=== PATIENT | male | born 1960 | race Caucasian/White ===

== ENCOUNTER 2020-01-10 06:33 | Inpatient (IN) | payer MEDICAID ==
[~2020-01-10] VITALS: Ht 182.9 cm; Wt 76.7 kg
[2020-01-10 06:35] VITALS: BP_SYST 110
[2020-01-10] MEDS ORDERED: NACL 0.9% 1,000 ML IV ONE (06:45)
[2020-01-10 07:23] LABS: BASOPHILS % (AUTO) 0.7 % (0.0-2.0); EOSINOPHILS # (AUTO) 0.1 K/uL (0.0-0.4); EOSINOPHILS % (AUTO) 0.9 % (0.0-4.0); HEMATOCRIT 25.8 % (36-54); LYMPHOCYTES # (AUTO) 0.8 K/uL (1.0-5.5); LYMPHOCYTES % (AUTO) 11.8 % (20.5-51.5); MEAN CORPUSCULAR HEMOGLOBIN 37 pg (27-31); MEAN CORPUSCULAR HGB CONC 35 % (32-36); MEAN CORPUSCULAR VOLUME 105 fL (79.0-98.0); MONOCYTES % (AUTO) 15.9 % (1.7-9.3); NEUTROPHILS # (AUTO) 4.6 K/uL (1.8-7.7); NEUTROPHILS % (AUTO) 70.7 % (40.0-70.0); PLATELET COUNT (AUTO) 99 K/uL (130-430); RED BLOOD CELL COUNT(AUTO) 2.44 MIL/uL (4.2-6.2); RED CELL DISTRIBUTION WIDTH 17.7 % (9.0-15.0); WHITE BLOOD COUNT (AUTO) 6.6 K/uL (4.8-10.8)
[2020-01-10 07:39] LABS: INR 1.4 (0.80-1.20)
[2020-01-10 07:46] LABS: ALANINE AMINOTRANSFERASE 44 U/L (12-78); ALBUMIN 2.7 g/dL (3.4-4.8); ANION GAP 10 (5-15); ASPARTATE AMINOTRANSFERASE 69 U/L (10-37); CALCIUM 8.4 mg/dL (8.4-11.0); CHLORIDE 88 mmol/L (98-107); CREATININE 1.16 mg/dL (0.55-1.30); GLUCOSE 104 mg/dL (70-99); POTASSIUM 4.7 mmol/L (3.5-5.1); UREA NITROGEN, BLOOD 25 mg/dL (8-21)
[2020-01-10 07:47] LABS: GFR AFRICAN AMERICAN 83 mL/min (>90)
[2020-01-10 07:48] LABS: ALCOHOL, BLOOD < 3 mg/dL (<10); SODIUM SERUM 120 mmol/L (136-145); TOTAL BILIRUBIN 5.6 mg/dL (0.0-1.0)
[2020-01-10 07:49] LABS: PROTHROMBIN TIME 13.8 SECS (9.5-12.5)
[2020-01-10] MEDS ORDERED: FOLIC ACID 1 MG, THIAMINE HCL 100 MG, MAGNESIUM SULFATE 1 GM, MVI 10 ML in NACL 0.9% 1,... IV ONE (08:30)
[2020-01-10] MEDS ORDERED: FOLIC ACID 1 MG, MVI 10 ML in NACL 0.9% 1,000 ML IV ONE (08:45)
[2020-01-10] MEDS ORDERED: THIAMINE HCL 100 MG, MAGNESIUM SULFATE 1 GM in NS 100 ML IV ONE (08:45)
[2020-01-10 09:28] VITALS: BP_SYST 95
[2020-01-10] MEDS ORDERED: LORazepam 2 MG/ML VIAL IVP PRN (10:45)
[2020-01-10] MEDS ORDERED: FAMOTIDINE PF 20 MG/2 ML VIAL IVP ONE (10:45)
[2020-01-10 12:00] VITALS: BP_SYST 97
[2020-01-10 16:32] VITALS: BP_SYST 99
[2020-01-10] MEDS: SPIRONOLACTONE 50 MG TABLET (ALDACTONE) PO SCH (18:55)
[2020-01-10] MEDS: FUROSEMIDE 20 MG TABLET PO SCH (18:56)
[2020-01-10 19:45] VITALS: BP_SYST 94
[2020-01-10] MEDS: FAMOTIDINE PF 20 MG/2 ML VIAL IVP SCH (20:34)
[2020-01-10] MEDS: LACTULOSE 20 GM/30 ML UDC PO SCH (20:34)
[2020-01-11] VITALS: BP_SYST 114
[2020-01-11 03:07] LABS: BILIRUBIN,URINE NEGATIVE (NEGATIVE); BLOOD, URINE 3+ (NEGATIVE); CLARITY/URINE SL CLOUDY (CLEAR); COLOR,URINE YELLOW (YELLOW); GLUCOSE,URINE NEGATIVE (NEGATIVE); KETONES,URINE TRACE (NEGATIVE); LEUKOCYTE ESTERASE ,URINE TRACE (NEGATIVE); NITRITE, URINE NEGATIVE (NEGATIVE); PH,URINE 5.5 (5.0-8.0); PROTEIN URINE NEGATIVE (NEGATIVE); UROBILINOGEN,URINE 0.2 (0.2-1.0)
[2020-01-11 03:20] LABS: BARBITURATE, URINE NEGATIVE (NEG <=200); BENZODIAZEPINE, URINE NEGATIVE (NEG <=150); CANNABINOID, URINE NEGATIVE (NEG <=50); COCAINE, URINE NEGATIVE (NEG <=150); METHAMPHETAMINES SCREEN,URINE NEGATIVE (NEG <=500); OPIATE, URINE POSITIVE (NEG <=100); PHENCYCLIDINE SCREEN,URINE NEGATIVE (NEG <=25); UR TRICYCLIC ANTIDEPRESSANTS NEGATIVE (NEG <=300); URINE AMPHETAMINE NEGATIVE (NEG <=500); URINE METHADONE NEGATIVE (NEG <=200); URINE OXYCODONE SCREEN NEGATIVE (NEG <=100); URINE PROPOXYPHENE SCREEN NEGATIVE (NEG <=300)
[2020-01-11 04:51] LABS: BACTERIA,URINE MODERATE /HPF (None Seen); RBC,URINE 20-50 /HPF (0-3)
[2020-01-11 06:24] LABS: INR 1.5 (0.80-1.20); PROTHROMBIN TIME 14.5 SECS (9.5-12.5)
[2020-01-11 06:28] LABS: BASOPHILS % (AUTO) 0.2 % (0.0-2.0); EOSINOPHILS # (AUTO) 0.1 K/uL (0.0-0.4); EOSINOPHILS % (AUTO) 2.4 % (0.0-4.0); HEMOGLOBIN 7.5 g/dL (14.0-18.0); LYMPHOCYTES # (AUTO) 0.9 K/uL (1.0-5.5); LYMPHOCYTES % (AUTO) 19.9 % (20.5-51.5); MEAN CORPUSCULAR HEMOGLOBIN 37 pg (27-31); MEAN CORPUSCULAR HGB CONC 34 % (32-36); MEAN CORPUSCULAR VOLUME 106 fL (79.0-98.0); MONOCYTES # (AUTO) 0.6 K/uL (0.0-1.0); NEUTROPHILS # (AUTO) 2.9 K/uL (1.8-7.7); NEUTROPHILS % (AUTO) 63.5 % (40.0-70.0); PLATELET COUNT (AUTO) 82 K/uL (130-430); RED BLOOD CELL COUNT(AUTO) 2.07 MIL/uL (4.2-6.2); RED CELL DISTRIBUTION WIDTH 17.6 % (9.0-15.0); WHITE BLOOD COUNT (AUTO) 4.6 K/uL (4.8-10.8)
[2020-01-11 06:29] LABS: ALBUMIN 2.2 g/dL (3.4-4.8); CALCIUM 7.7 mg/dL (8.4-11.0); CREATININE 1.25 mg/dL (0.55-1.30); POTASSIUM 4.2 mmol/L (3.5-5.1); TOTAL BILIRUBIN 3.9 mg/dL (0.0-1.0)
[2020-01-11 06:35] LABS: HEMATOCRIT 21.9 % (36-54)
[2020-01-11 08:00] VITALS: BP_SYST 82
[2020-01-11] MEDS: LACTULOSE 20 GM/30 ML UDC PO SCH ×2 (08:49→20:12)
[2020-01-11] MEDS: SPIRONOLACTONE 50 MG TABLET (ALDACTONE) PO SCH (08:50)
[2020-01-11] MEDS: FAMOTIDINE PF 20 MG/2 ML VIAL IVP SCH ×2 (08:50→20:12)
[2020-01-11] MEDS: NEPHROVITE, (FOLIC ACID/VITAMIN B COMP W-C 1 TAB) PO SCH (08:50)
[2020-01-11] MEDS: THIAMINE HCL 100 MG TABLET PO SCH (08:50)
[2020-01-11] MEDS: FUROSEMIDE 20 MG TABLET PO SCH (09:00)
[2020-01-11 15:16] LABS: BASOPHILS # (AUTO) 0.1 K/uL (0.0-0.2); BASOPHILS % (AUTO) 1.2 % (0.0-2.0); EOSINOPHILS # (AUTO) 0.1 K/uL (0.0-0.4); EOSINOPHILS % (AUTO) 1.4 % (0.0-4.0); HEMATOCRIT 24.1 % (36-54); HEMOGLOBIN 8.2 g/dL (14.0-18.0); LYMPHOCYTES # (AUTO) 0.7 K/uL (1.0-5.5); LYMPHOCYTES % (AUTO) 13.1 % (20.5-51.5); MEAN CORPUSCULAR HEMOGLOBIN 36 pg (27-31); MEAN CORPUSCULAR HGB CONC 34 % (32-36); MEAN CORPUSCULAR VOLUME 106 fL (79.0-98.0); MONOCYTES % (AUTO) 20.3 % (1.7-9.3); NEUTROPHILS # (AUTO) 3.3 K/uL (1.8-7.7); PLATELET COUNT (AUTO) 83 K/uL (130-430); RED BLOOD CELL COUNT(AUTO) 2.28 MIL/uL (4.2-6.2); RED CELL DISTRIBUTION WIDTH 17.3 % (9.0-15.0); WHITE BLOOD COUNT (AUTO) 5.1 K/uL (4.8-10.8)
[2020-01-11 20:00] VITALS: BP_SYST 95
[2020-01-12 00:30] VITALS: BP_SYST 126
[2020-01-12 06:03] LABS: BASOPHILS % (AUTO) 0.5 % (0.0-2.0); EOSINOPHILS # (AUTO) 0.1 K/uL (0.0-0.4); HEMOGLOBIN 8.1 g/dL (14.0-18.0); LYMPHOCYTES # (AUTO) 0.9 K/uL (1.0-5.5); LYMPHOCYTES % (AUTO) 17.9 % (20.5-51.5); MEAN CORPUSCULAR HEMOGLOBIN 37 pg (27-31); MEAN CORPUSCULAR HGB CONC 35 % (32-36); MEAN CORPUSCULAR VOLUME 105 fL (79.0-98.0); MONOCYTES # (AUTO) 1.1 K/uL (0.0-1.0); MONOCYTES % (AUTO) 21.8 % (1.7-9.3); NEUTROPHILS % (AUTO) 57.8 % (40.0-70.0); PLATELET COUNT (AUTO) 86 K/uL (130-430); RED BLOOD CELL COUNT(AUTO) 2.19 MIL/uL (4.2-6.2); RED CELL DISTRIBUTION WIDTH 17.5 % (9.0-15.0); WHITE BLOOD COUNT (AUTO) 5.1 K/uL (4.8-10.8)
[2020-01-12 06:24] LABS: INR 1.4 (0.80-1.20); PROTHROMBIN TIME 13.8 SECS (9.5-12.5)
[2020-01-12 06:30] LABS: ALBUMIN 2.3 g/dL (3.4-4.8); CALCIUM 8.2 mg/dL (8.4-11.0); CREATININE 1.11 mg/dL (0.55-1.30); POTASSIUM 4.4 mmol/L (3.5-5.1); TOTAL BILIRUBIN 4.8 mg/dL (0.0-1.0)
[2020-01-12 07:00] LABS: TOTAL IRON BIND. CAPACITY 180 ug/dL (250-450)
[2020-01-12] MEDS: LACTULOSE 20 GM/30 ML UDC PO SCH (08:31)
[2020-01-12] MEDS: SPIRONOLACTONE 50 MG TABLET (ALDACTONE) PO SCH (08:31)
[2020-01-12] MEDS: THIAMINE HCL 100 MG TABLET PO SCH (08:32)
[2020-01-12] MEDS: FUROSEMIDE 20 MG TABLET PO SCH (08:32)
[2020-01-12] MEDS: NEPHROVITE, (FOLIC ACID/VITAMIN B COMP W-C 1 TAB) PO SCH (08:32)
[2020-01-12] MEDS: FAMOTIDINE PF 20 MG/2 ML VIAL IVP SCH (08:32)
[2020-01-12] MEDS ORDERED: SODIUM CHLORIDE 3% *HI-ALERT* 300 ML IV PRN (13:00)
[2020-01-12] MEDS ORDERED: SODIUM CHLORIDE 3% *HI-ALERT* 500 ML IV SCH (14:15)
== END 2020-01-12 18:40 | disposition left against medical advice (07) | DRG 279 ==
LOC: SED 06:33 → STU 08:25
PROVIDERS: ADMIT Internal Medicine; ATTEND Internal Medicine
DX: K72.90 Hepatic failure, unspecified without coma (principal); I85.10 Secondary esophageal varices without bleeding; E44.0 Moderate protein-calorie malnutrition; E87.1 Hypo-osmolality and hyponatremia; G62.1 Alcoholic polyneuropathy; D64.9 Anemia, unspecified; T14.8XXA Other injury of unspecified body region, initial encounter; E86.0 Dehydration; F41.1 Generalized anxiety disorder; K70.31 Alcoholic cirrhosis of liver with ascites; F10.20 Alcohol dependence, uncomplicated; F17.200 Nicotine dependence, unspecified, uncomplicated; X58.XXXA Exposure to other specified factors, initial encounter; Y93.89 Activity, other specified; Y92.89 Other specified places as the place of occurrence of the external cause; Y99.8 Other external cause status; Z68.22 Body mass index [BMI] 22.0-22.9, adult; Z91.19 Patient's noncompliance with other medical treatment and regimen
CPT/HCPCS: 36415; 71045; 80053; 80307; 81000-TC; 82140-TC; 82607; 83540-TC; 83550-TC; 85025; 85610-TC; 85730-TC; 86886; 86900; 86901; 87081; 87086; 87186-TC; 96360; 99285; G0378; G0482; J3411; J3475; J3490; J7030

== ENCOUNTER 2020-01-18 16:09 | Inpatient (IN) | payer MEDICAID, SELFPAY ==
[~2020-01-18] VITALS: Ht 170.2 cm; Wt 71.2 kg
[2020-01-18] MEDS: PIPERACILLIN/TAZO 3.375/DEX-IS 50 ML IV SCH (15:35)
--- NOTE | 2020-01-18 16:15 | NUR ---
Patient to ER bed 03 to gown for evaluation. Side rails up.
--- NOTE | 2020-01-18 16:17 | NUR ---
Patient biba in the ED for hypotension today. Per PD, patient was found on the floor covered in feces, was put on hold for gravely disabled. 5150 Hold placed on 1538 today by Officer Sophia Glez #[id number]. Denied any chest pain or shortness of breath. Denied any fevers, chills, nausea or vomiting. Patient is alert and oriented x2, respirations even and unlabored and speaking in full sentences. Abdominal distention noted, Jaundiced, VSS, pain level 0/10. Informed of the approximate wait time. Instructed to notify ED staff for any changes in condition or worsening of symptoms while waiting to be seen by an ED provider. Patient verbalized understanding.
--- NOTE | 2020-01-18 16:30 | NUR ---
ER Dr. Chandler at bedside examining patient.
--- NOTE | 2020-01-18 16:50 | NUR ---
X-ray done at bedside as ordered by Dr. Chandler. Patient tolerated the procedure well.
[2020-01-18] MEDS ORDERED: NACL 0.9% 1,000 ML IV ONE ×3 (17:00→18:15)
[2020-01-18 17:10] VITALS: BP_SYST 135
--- NOTE | 2020-01-18 17:15 | NUR ---
ECG done at bedside as ordered by Dr. Chandler. Patient tolerated the procedure well. ER Physician given copy of EKG for review.
[2020-01-18 17:19] LABS: BASOPHILS % (AUTO) 0.6 % (0.0-2.0); EOSINOPHILS # (AUTO) 0.1 K/uL (0.0-0.4); EOSINOPHILS % (AUTO) 2.3 % (0.0-4.0); HEMATOCRIT 23.4 % (36-54); HEMOGLOBIN 7.9 g/dL (14.0-18.0); LYMPHOCYTES # (AUTO) 0.9 K/uL (1.0-5.5); LYMPHOCYTES % (AUTO) 17.4 % (20.5-51.5); MEAN CORPUSCULAR HEMOGLOBIN 36 pg (27-31); MEAN CORPUSCULAR HGB CONC 34 % (32-36); MEAN CORPUSCULAR VOLUME 107 fL (79.0-98.0); MONOCYTES # (AUTO) 0.8 K/uL (0.0-1.0); MONOCYTES % (AUTO) 15.6 % (1.7-9.3); NEUTROPHILS # (AUTO) 3.3 K/uL (1.8-7.7); NEUTROPHILS % (AUTO) 64.1 % (40.0-70.0); PLATELET COUNT (AUTO) 98 K/uL (130-430); RED BLOOD CELL COUNT(AUTO) 2.18 MIL/uL (4.2-6.2); RED CELL DISTRIBUTION WIDTH 18.1 % (9.0-15.0); WHITE BLOOD COUNT (AUTO) 5.2 K/uL (4.8-10.8)
[2020-01-18 17:22] LABS: CALCIUM 8.7 mg/dL (8.4-11.0); CREATININE 1.78 mg/dL (0.55-1.30); POTASSIUM 4.9 mmol/L (3.5-5.1)
[2020-01-18 17:29] LABS: ALBUMIN 2.6 g/dL (3.4-4.8); TOTAL BILIRUBIN 9.7 mg/dL (0.0-1.0)
[2020-01-18 17:50] LABS: CKMB RELATIVE INDEX 2.2 (0.0-2.9); CREATINE KINASE MB 6.9 ng/mL (0-3.6)
--- NOTE | 2020-01-18 17:52 | NUR ---
Patient is resting comfortably in bed, respirations even and unlabored, speaking in full sentences.
--- NOTE | 2020-01-18 19:20 | NUR ---
Report given and care transferred to MABLE Galvez.
--- NOTE | 2020-01-18 19:30 | NUR ---
PT IS AWAKE, ALERT, TALKATIVE. PT IS LAYING IN BED WITHOUT SIGNS OF ACUTE DISTRESS.
--- NOTE | 2020-01-18 19:37 | NUR ---
RECEIVED ADMIT ORDERS FROM DR. SANCHEZ.
--- NOTE | 2020-01-18 19:42 | NUR ---
CALLED TELE TO REQUEST BED.
[2020-01-18] MEDS ORDERED: ONDANSETRON HCL 4 MG/2 ML VIAL IVP PRN (20:00)
[2020-01-18] MEDS ORDERED: METOCLOPRAMIDE HCL 10 MG/2 ML VIAL IVP PRN (20:00)
[2020-01-18] MEDS ORDERED: LEVOFLOXACIN 500 MG/D5W 100 ML IV ONE (20:00)
--- NOTE | 2020-01-18 20:09 | NUR ---
Medication reconciliation unable to obtain with information provided by PATIENT. Any prior medication reconciliation on file was reviewed and corrected.
[2020-01-18] MEDS ORDERED: ALBUMIN HUMAN 25% 50 ML IV ONE (21:00)
--- NOTE | 2020-01-18 21:00 | NUR ---
CALLED DR. SANCHEZ BECAUSE PT SBP < 90 AFTER 3L OF NS BOLUS. DR. SANCHEZ UPGRADED PT TO ICU. VERBAL ORDER FOR LEVOPHED, ALBUMIN, AND ZOSYN 3.375.
--- NOTE | 2020-01-18 21:00 | NUR ---
Lynn noble in [facility] - 01/18/[address] SANCHEZ UPGRADED PT TO ICU.
[2020-01-18] MEDS ORDERED: NOREPINEPHRINE 4 MG/4 ML VIAL IV ONE (21:14)
--- NOTE | 2020-01-18 21:15 | NUR ---
Started on Levophed drip to titrate by 2mcg/min q10 mins to achieve goal SBP
--- NOTE | 2020-01-18 21:25 | NUR ---
rate increased to 4mcg/min
[2020-01-18] MEDS: NOREPINEPHRINE BITARTRATE 4 MG in NS 246 ML IV PRN (21:28)
--- NOTE | 2020-01-18 21:35 | NUR ---
levophed rate increased to 6 mcg/min
--- NOTE | 2020-01-18 21:45 | NUR ---
levophed rate increased to 8mcg/min
--- NOTE | 2020-01-18 21:55 | NUR ---
levophed rate increased to 10mcg/min. PT BP 82/50.
--- NOTE | 2020-01-18 22:26 | NUR ---
levophed rate increased to 12mcg/min. PT BP 81/45
--- NOTE | 2020-01-18 22:39 | NUR ---
levophed rate increased to 14mcg/min. PT BP 85/59
--- NOTE | 2020-01-18 22:50 | NUR ---
levophed rate AT 14mcg/min. PT BP 90/48.
[2020-01-18] MEDS: LACTULOSE 20 GM/30 ML UDC PO SCH ×2 (23:00→23:19)
--- NOTE | 2020-01-18 23:01 | NUR ---
levophed rate increased to 16mcg/min. PT BP 86/55
--- NOTE | 2020-01-18 23:14 | NUR ---
levophed rate AT 16 mcg/min. PT BP 90/54
--- NOTE | 2020-01-18 23:24 | NUR ---
levophed rate increased to 18mcg/min. PT BP 87/54
--- NOTE | 2020-01-18 23:34 | NUR ---
levophed rate increased to 20mcg/min. PT BP 87/49
--- NOTE | 2020-01-18 23:44 | NUR ---
levophed rate at 20mcg/min. PT BP 95/56
--- NOTE | 2020-01-18 23:45 | NUR ---
PT ALERT, AWAKE, TALKATIVE. DENIES PAIN. NO SIGNS OF ACUTE DISTRESS.
--- NOTE | 2020-01-18 23:54 | NUR ---
levophed rate at 20mcg/min. PT BP 92/60
[2020-01-19] VITALS (23 sets, daily range): BP systolic 87–147
--- NOTE | 2020-01-19 00:04 | NUR ---
levophed rate increased to 22mcg/min
--- NOTE | 2020-01-19 00:14 | NUR ---
levophed rate AT 22mcg/min. PT BP 97/57
--- NOTE | 2020-01-19 00:24 | NUR ---
levophed rate AT 22mcg/min. PT BP 99/59
--- NOTE | 2020-01-19 00:34 | NUR ---
levophed rate AT 22mcg/min. PT BP 102/58
--- NOTE | 2020-01-19 00:44 | NUR ---
levophed rate AT 22mcg/min. PT BP 104/54
--- NOTE | 2020-01-19 00:54 | NUR ---
Patient will be admitted to care of DR. SANCHEZ. Admitted to ICU unit. Will go to room 7. Belongings list completed. Complete and up to date summary report printed. SBAR report to be given at bedside with opportunity for questions.
--- NOTE | 2020-01-19 00:55 | NUR ---
Transfer to ICU via ACLS protocol. Licensed nurse present. IV present no signs or symptoms of infiltration.
--- NOTE | 2020-01-19 01:00 | NUR ---
Patient's code status is DNR WITH MODIFIED RESUSCITATIVE MEAUSURES OF INTUBATION paperwork completed and placed in chart.
--- NOTE | 2020-01-19 01:30 | NUR ---
Admission Note REceived Pt from ED, via julito. Pt AAO, SR on the monitor. On levophed @22mcg/min for BP. On RA, no s/s of distres noted. Pt c/o of no pain. VSS. Afebrile. IV sites noted, C/D/I. Skin intact, ABD distended, and Pt appearing jaundice. Able to make needs known. Will continue to monitor.
[2020-01-19] MEDS ORDERED: NOREPINEPHRINE 4 MG/4 ML VIAL IV ONE ×3 (01:36→07:58)
[2020-01-19] MEDS: D5NS 1,000 ML IV SCH ×3 (01:37→15:35)
[2020-01-19] MEDS: NOREPINEPHRINE BITARTRATE 4 MG in NS 246 ML IV PRN ×3 (01:38→21:24)
[2020-01-19] MEDS: PIPERACILLIN/TAZO 3.375/DEX-IS 50 ML IV SCH ×4 (03:00→20:07)
[2020-01-19] MEDS ORDERED: PIPERACILLIN/TAZOBACTAM 3.375 GM/VIAL (ZOSYN) IV ONE (03:02)
[2020-01-19] MEDS ORDERED: LEVOFLOXACIN 500 MG/D5W 100 ML IV ONE (03:02)
[2020-01-19] MEDS: LACTULOSE 20 GM/30 ML UDC PO SCH ×6 (03:02→23:00)
--- NOTE | 2020-01-19 04:06 | NUR ---
Pt in bed asleep. No s/s of distress noted. Pt tolerating Levophed @20mcg/min. Will continue to monitor.
[2020-01-19 06:19] LABS: BASOPHILS % (AUTO) 0.7 % (0.0-2.0); EOSINOPHILS # (AUTO) 0.1 K/uL (0.0-0.4); EOSINOPHILS % (AUTO) 1.9 % (0.0-4.0); HEMOGLOBIN 7.6 g/dL (14.0-18.0); LYMPHOCYTES % (AUTO) 15.5 % (20.5-51.5); MEAN CORPUSCULAR HEMOGLOBIN 37 pg (27-31); MEAN CORPUSCULAR HGB CONC 35 % (32-36); MEAN CORPUSCULAR VOLUME 108 fL (79.0-98.0); MONOCYTES # (AUTO) 1.1 K/uL (0.0-1.0); MONOCYTES % (AUTO) 16.8 % (1.7-9.3); NEUTROPHILS # (AUTO) 4.2 K/uL (1.8-7.7); NEUTROPHILS % (AUTO) 65.1 % (40.0-70.0); PLATELET COUNT (AUTO) 113 K/uL (130-430); RED BLOOD CELL COUNT(AUTO) 2.05 MIL/uL (4.2-6.2); RED CELL DISTRIBUTION WIDTH 17.7 % (9.0-15.0); WHITE BLOOD COUNT (AUTO) 6.4 K/uL (4.8-10.8)
[2020-01-19 06:41] LABS: ALBUMIN 2.6 g/dL (3.4-4.8); CALCIUM 8.5 mg/dL (8.4-11.0); CREATININE 1.91 mg/dL (0.55-1.30); POTASSIUM 4.5 mmol/L (3.5-5.1)
--- NOTE | 2020-01-19 06:54 | NUR ---
Nutrition Update Wilian Scale 14 noted. Pt admitted for Hepatic Encephalopathy Diet: NPO BMI: 24.7 kg/m2 RD to follow per nutrition care standards.
--- NOTE | 2020-01-19 07:00 | NUR ---
Closing Note Pt in bed, AAO, SR on the monitor. LEvophed infusing @20mcg/min. Pt on RA, no distress noted. Able to make needs known. Pt ABd remains distended and firm. Will endorse to oncoming RN.
--- NOTE | 2020-01-19 07:23 | NUR ---
Endorsement Report given to oncoming RN at bedside via SBAR approach.
--- NOTE | 2020-01-19 07:24 | NUR ---
Received pt to assume care. Pt alert and oriented. ST on monitor. Levophed at 20 mcgs. Pt slightly jaundiced. IV to left AC 20g infusing levophed and main IV fluid. 20g saline lock to right AC intact. Pt able to use urinal but doesn't have the urge. Room air 02. No complaints offered. Will continue to monitor.
[2020-01-19 10:22] LABS: INR 1.5 (0.80-1.20); PROTHROMBIN TIME 15.4 SECS (9.5-12.5)
--- NOTE | 2020-01-19 11:25 | NUR ---
Pt incontinent of large amount of brown liquid stool. Ju care done and complete linen change done. Pt given clear liquids. Levophed remains at 18 mcgs . Will continue to monitor.
--- NOTE | 2020-01-19 12:35 | NUR ---
Call out to Dr. Mar for a diet order
--- NOTE | 2020-01-19 13:30 | NUR ---
Drinking clear liquids. No c.o. ST on monitor. Levophed at 18 mcgs. Unable to titrate down farther without mean less than 60.
--- NOTE | 2020-01-19 13:46 | NUR ---
SS NOTES: PSYCHIATRIC TECHNICIAN was referred by SS to see patient for DCP. Pt is currently PUI and no phone at bedside. PSYCHIATRIC TECHNICIAN phoned NOK, Deann Matias @ [phone] instead. Pt is a 59 y/o single male who came in via ED for altered level of consciousness. Pt was in [place] recently (01/11) and had another admission prior to that at another hospital. Pt lives alone in his apartment and is independent on all his ADL's and does not require any DME. Pt was homeless for four years 2 years ago. Pt's possible source of income is his SSI, and he is also receiving [employer]. Prior visit states he is receiving 10 hrs/day of IHSS and has a "caregiver". Pt has a long history of mental health and is diagnosed with Bipolar disorder. Pt was also admitted at a in psychiatric facility 10 years ago, unknown hospital. Pt is currently receiving mental health services at [facility]. Per ARIE, pt drinks alcohol daily and possible heavily. Pt has a history of cocaine use 20 years ago and no history of detox admissions. Unknown SNF or [facility] admissions in the past. SS or CM will follow up on DCP when pt available.
--- NOTE | 2020-01-19 16:55 | NUR ---
Pt incontinent of a very large amount of liquid brown stool. Doris care done and complete linen change done.
--- NOTE | 2020-01-19 19:35 | NUR ---
OPENING NOTE: Received SBAR report from off coming RN for continuity of care. Questions were addressed.
[2020-01-19] MEDS: FUROSEMIDE 40 MG TABLET PO SCH (20:08)
[2020-01-20] VITALS (24 sets, daily range): BP systolic 75–114
[2020-01-20] MEDS: NOREPINEPHRINE BITARTRATE 4 MG in NS 246 ML IV PRN ×3 (02:19→15:02)
[2020-01-20] MEDS: PIPERACILLIN/TAZO 3.375/DEX-IS 50 ML IV SCH ×4 (02:28→21:56)
[2020-01-20] MEDS: D5NS 1,000 ML IV SCH ×3 (02:38→21:57)
[2020-01-20] MEDS: LACTULOSE 20 GM/30 ML UDC PO SCH ×5 (03:00→18:51)
--- NOTE | 2020-01-20 07:29 | NUR ---
CLOSING NOTE: Endorsed SBAR report to oncoming RN for continuity of care. Questions were addressed.
--- NOTE | 2020-01-20 08:00 | NUR ---
Opening Notes Patient received awake and alert in bed with no signs of distress noted at this time. Patient on threat monitoring analyst with NSR. Patient on room air breathing evenly and unlabored. Patient with peripheral IV receiving fluids and levophed at 20 mcg/min. Patient incontinent at this time. Safety and isolation precautions enforced.
[2020-01-20] MEDS ORDERED: VASOPRESSIN 200 UNITS in D5W 90 ML IV PRN (08:30)
--- NOTE | 2020-01-20 09:00 | NUR ---
Jackson catheter education/ refusal Patient educated regarding MD order for jackson catheter insertion. Patient verbalized understanding and refused jackson insertion.
[2020-01-20 09:03] LABS: CALCIUM 7.7 mg/dL (8.4-11.0); CREATININE 2.16 mg/dL (0.55-1.30)
[2020-01-20] MEDS: FUROSEMIDE 40 MG TABLET PO SCH ×2 (09:11→21:56)
[2020-01-20 09:13] LABS: BASOPHILS % (AUTO) 0.9 % (0.0-2.0); EOSINOPHILS # (AUTO) 0.2 K/uL (0.0-0.4); EOSINOPHILS % (AUTO) 4.3 % (0.0-4.0); LYMPHOCYTES # (AUTO) 0.9 K/uL (1.0-5.5); LYMPHOCYTES % (AUTO) 20.8 % (20.5-51.5); MEAN CORPUSCULAR HEMOGLOBIN 37 pg (27-31); MEAN CORPUSCULAR HGB CONC 34 % (32-36); MEAN CORPUSCULAR VOLUME 109 fL (79.0-98.0); MONOCYTES # (AUTO) 0.6 K/uL (0.0-1.0); MONOCYTES % (AUTO) 13.3 % (1.7-9.3); NEUTROPHILS # (AUTO) 2.7 K/uL (1.8-7.7); NEUTROPHILS % (AUTO) 60.7 % (40.0-70.0); PLATELET COUNT (AUTO) 75 K/uL (130-430); RED CELL DISTRIBUTION WIDTH 17.8 % (9.0-15.0); WHITE BLOOD COUNT (AUTO) 4.4 K/uL (4.8-10.8)
[2020-01-20] MEDS ORDERED: NOREPINEPHRINE 4 MG/4 ML VIAL IV ONE ×2 (09:21)
[2020-01-20 09:26] LABS: POTASSIUM 2.8 mmol/L (3.5-5.1)
[2020-01-20 09:30] LABS: RED BLOOD CELL COUNT(AUTO) 1.84 MIL/uL (4.2-6.2)
[2020-01-20] MEDS ORDERED: POTASSIUM CHLORIDE 20 MEQ/PKT PACKET PO ONE (09:30)
[2020-01-20 09:31] LABS: HEMOGLOBIN 6.8 g/dL (14.0-18.0)
--- NOTE | 2020-01-20 12:00 | NUR ---
RN Rounds Patient resting in bed at this time, no signs of distress noted. Reinforced teachings regarding disease process and plan of care. Safety and isolation precautions enforced.
--- NOTE | 2020-01-20 14:37 | NUR ---
Dietitian Recommendations *Continue clear liquid diet per MD. ONS Ensure Clear comes standard w/ diet and provides 720 kcal and 24gm protein daily. *If/when medically appropriate, advance diet. (Full liquid then soft diet) Please see Nutritional Assessment for details. MANJEET, CATHERINE
--- NOTE | 2020-01-20 16:00 | NUR ---
RN Rounds Patient in no signs of distress at this time. Safety and isolation precautions enforced.
--- NOTE | 2020-01-20 16:30 | NUR ---
PICC line PICC line RN at bedside for PICC line placement. Patient tolerating well.
[2020-01-20 17:26] LABS: SOURCE/TYPE ,BODY FLUID PARACENTESIS
[2020-01-20 17:27] LABS: APPEARANCE,SPUN,BODY FLUID CLEAR (CLEAR); BF APPEARANCE UNSPUN HAZY (CLEAR); BODY FLUID COLOR YELLOW (LT YELLOW); BODY FLUID TOTAL VOLUME 1250 mL; RBC, BODY FLUID 331 /uL; WBC, BODY FLUID 12 /uL
[2020-01-20 17:28] LABS: BODY FLUID OTHER CELLS 0 %; EOSINOPHIL, BODY FLUID 0 %; LYMPHOCYTES, BODY FLUID 12 %; MONOCYTES,BODY FLUID 82 %; NEUTROPHIL, BODY FLUID 6 %
--- NOTE | 2020-01-20 17:30 | NUR ---
Blood Transfusion Transfusing 1 unit PRBC at this time. Patient tolerating well. No signs of distress noted.
[2020-01-20 17:34] LABS: BODY FLUID SOURCE/ TYPE PERITONEAL
[2020-01-20] MEDS: MORPHINE 2 MG/ML INJ. SYRINGE IVP PRN (17:50)
--- NOTE | 2020-01-20 19:30 | NUR ---
Opening note Received patient after report from [facility] nurse Renita. Isolation for PUI r/o covid 19. patient in Room air; no signs of respiratory compromise. Requiring Levophed drip and vasopressin to sustain BP WNL. Patient has the tendency to carry on a conversation disregarding others and often repeating ideas previously stated. Continues to refuse jackson catheter and found to be incontinent of urine and stool. one unit of PRBC continues to infuse as per MD orderswill continue to monitor patient for safety and according to unit protocol.
--- NOTE | 2020-01-20 19:36 | NUR ---
Closing Notes Patient endorsed to awake overnight counselor RN using SBAR format. No signs of distress noted.
--- NOTE | 2020-01-20 21:05 | NUR ---
Blood transfusion completed; no signs of abnormal reactions noted.
[2020-01-21] VITALS (24 sets, daily range): BP systolic 76–122
[2020-01-21 00:01] LABS: BODY FLUID TOTAL PROTEIN 0.6 g/dL
[2020-01-21 00:02] LABS: BODY FLUID GLUCOSE 115 mg/dL
--- NOTE | 2020-01-21 00:20 | NUR ---
Assessment completed; incontinence care provided. Repositioned for comfort.
[2020-01-21] MEDS: LACTULOSE 20 GM/30 ML UDC PO SCH ×7 (01:49→22:25)
[2020-01-21] MEDS: NOREPINEPHRINE BITARTRATE 4 MG in NS 246 ML IV PRN ×3 (01:52→20:56)
--- NOTE | 2020-01-21 05:30 | NUR ---
Morning care provided. Linen changed; bedbath given. patient tolerated well.
[2020-01-21] MEDS: PIPERACILLIN/TAZO 3.375/DEX-IS 50 ML IV SCH ×4 (05:31→21:13)
[2020-01-21 05:50] LABS: BASOPHILS % (AUTO) 0.5 % (0.0-2.0); EOSINOPHILS # (AUTO) 0.1 K/uL (0.0-0.4); EOSINOPHILS % (AUTO) 3.4 % (0.0-4.0); HEMATOCRIT 26.7 % (36-54); HEMOGLOBIN 9.3 g/dL (14.0-18.0); LYMPHOCYTES # (AUTO) 1.4 K/uL (1.0-5.5); LYMPHOCYTES % (AUTO) 32.7 % (20.5-51.5); MEAN CORPUSCULAR HEMOGLOBIN 37 pg (27-31); MEAN CORPUSCULAR HGB CONC 35 % (32-36); MEAN CORPUSCULAR VOLUME 105 fL (79.0-98.0); MONOCYTES # (AUTO) 0.5 K/uL (0.0-1.0); MONOCYTES % (AUTO) 11.9 % (1.7-9.3); NEUTROPHILS # (AUTO) 2.2 K/uL (1.8-7.7); NEUTROPHILS % (AUTO) 51.5 % (40.0-70.0); PLATELET COUNT (AUTO) 61 K/uL (130-430); RED BLOOD CELL COUNT(AUTO) 2.55 MIL/uL (4.2-6.2); RED CELL DISTRIBUTION WIDTH 19.7 % (9.0-15.0); WHITE BLOOD COUNT (AUTO) 4.3 K/uL (4.8-10.8)
[2020-01-21 06:39] LABS: ALBUMIN 2.4 g/dL (3.4-4.8); CALCIUM 7.5 mg/dL (8.4-11.0); CREATININE 1.65 mg/dL (0.55-1.30); TOTAL BILIRUBIN 8.9 mg/dL (0.0-1.0)
[2020-01-21 06:42] LABS: POTASSIUM 2.5 mmol/L (3.5-5.1)
[2020-01-21] MEDS ORDERED: POTASSIUM CHLORIDE 20 MEQ/PKT PACKET PO ONE (07:15)
[2020-01-21] MEDS ORDERED: KCL 20 mEq in 100 mL (PREMIX) 100 ML IV ONE (07:30)
--- NOTE | 2020-01-21 07:30 | NUR ---
Opening Notes Pt received from night RN using SBAR.
[2020-01-21] MEDS: FUROSEMIDE 40 MG TABLET PO SCH ×2 (08:04→21:22)
[2020-01-21] MEDS: D5NS 1,000 ML IV SCH ×2 (08:04→18:11)
[2020-01-21] MEDS: MIDODRINE HCL 5 MG TABLET (PROAMATINE) PO SCH ×3 (09:15→21:22)
[2020-01-21] MEDS ORDERED: KCL 40 mEq in 100 mL (PREMIX) 100 ML IV ONE ×3 (09:30→22:30)
--- NOTE | 2020-01-21 09:30 | NUR ---
Incontinent Pt is incontinent of bowel and bladder. New Linen, gown and mona-care provided. Pt tolerated well. Will continue to monitor. Pt was offered a jackson cath per order and pt refused.
--- NOTE | 2020-01-21 11:08 | NUR ---
Called Dr. Redding with a consult, spoke with Case from doctors office
--- NOTE | 2020-01-21 13:15 | NUR ---
MD Dr. Acosta at bedside with pt.
--- NOTE | 2020-01-21 16:15 | NUR ---
PICC Dressing PICC line dressing changed using sterile technique. Pt tolerated well.
[2020-01-21 17:00] LABS: POTASSIUM 2.4 mmol/L (3.5-5.1)
--- NOTE | 2020-01-21 17:49 | NUR ---
MD Dr. Mar informed of pts low K+ post potassium given, Dr. Pérez consult ordered.
--- NOTE | 2020-01-21 17:58 | NUR ---
Consult Spoke to Dr. Pérez and informed of pt, new orders received.
--- NOTE | 2020-01-21 19:15 | NUR ---
Closing Notes Pt endorsed to night RN using SBAR.
[2020-01-21] MEDS ORDERED: MAGNESIUM SULFATE 1 GM/2 ML VIAL IVP ONE (19:30)
--- NOTE | 2020-01-21 19:40 | NUR ---
Opening note Received patient after report from daysnmft nurse Shellie. Patient off vasopressors but BP noted to start deteriorating as SBP 75-81 Patient awake and able to speak. NO signs of respiratory distress in room air. Picc line ALLEN in place and patent with potassium ridder infusing. will continue to monitor as per unit protocol.
--- NOTE | 2020-01-21 20:52 | NUR ---
Levophed drip started at 2 mcg/min for consistent SBP 70-75 and MAP 50.
[2020-01-21] MEDS: MORPHINE 2 MG/ML INJ. SYRINGE IVP PRN (22:59)
[2020-01-22] VITALS (24 sets, daily range): BP systolic 81–99
[2020-01-22] MEDS: LACTULOSE 20 GM/30 ML UDC PO SCH ×6 (03:00→23:44)
[2020-01-22] MEDS: PIPERACILLIN/TAZO 3.375/DEX-IS 50 ML IV SCH ×4 (03:57→21:27)
[2020-01-22] MEDS: D5NS 1,000 ML IV SCH ×3 (03:58→23:49)
[2020-01-22 07:03] LABS: BASOPHILS % (AUTO) 0.7 % (0.0-2.0); EOSINOPHILS # (AUTO) 0.1 K/uL (0.0-0.4); EOSINOPHILS % (AUTO) 3.3 % (0.0-4.0); HEMATOCRIT 26.7 % (36-54); HEMOGLOBIN 9.3 g/dL (14.0-18.0); LYMPHOCYTES # (AUTO) 0.7 K/uL (1.0-5.5); LYMPHOCYTES % (AUTO) 17.5 % (20.5-51.5); MEAN CORPUSCULAR HEMOGLOBIN 37 pg (27-31); MEAN CORPUSCULAR HGB CONC 35 % (32-36); MEAN CORPUSCULAR VOLUME 106 fL (79.0-98.0); MONOCYTES # (AUTO) 0.5 K/uL (0.0-1.0); MONOCYTES % (AUTO) 11.5 % (1.7-9.3); NEUTROPHILS # (AUTO) 2.8 K/uL (1.8-7.7); PLATELET COUNT (AUTO) 62 K/uL (130-430); RED BLOOD CELL COUNT(AUTO) 2.53 MIL/uL (4.2-6.2); RED CELL DISTRIBUTION WIDTH 19.4 % (9.0-15.0); WHITE BLOOD COUNT (AUTO) 4.2 K/uL (4.8-10.8)
[2020-01-22 07:12] LABS: CREATININE 1.58 mg/dL (0.55-1.30); PHOSPHORUS 3.8 mg/dL (2.7-4.5); TOTAL BILIRUBIN 5.9 mg/dL (0.0-1.0)
--- NOTE | 2020-01-22 08:00 | NUR ---
Initial notes- In bed awake, alert forgetful. Denies any pain or discomfort at this time. On room air tolerating well. on Levophed at 10mcg. IVF infusing well. Incontinent of bowel and bladder. afebrile. Sinus on the monitor. will monitor.
[2020-01-22 08:06] LABS: POTASSIUM 2.3 mmol/L (3.5-5.1)
[2020-01-22] MEDS: ARIPiprazole 5 MG TAB PO SCH (08:46)
[2020-01-22] MEDS: FUROSEMIDE 40 MG TABLET PO SCH ×2 (08:46→21:28)
[2020-01-22] MEDS: MULTIVITAMINS TAB 1 TABLET PO SCH (08:46)
[2020-01-22] MEDS: SPIRONOLACTONE 50 MG TABLET (ALDACTONE) PO SCH ×3 (08:47→21:28)
[2020-01-22] MEDS: THIAMINE HCL 100 MG TABLET PO SCH (08:47)
[2020-01-22] MEDS: MIDODRINE HCL 5 MG TABLET (PROAMATINE) PO SCH ×3 (08:47→21:28)
--- NOTE | 2020-01-22 09:12 | NUR ---
Meds- Pt able to eat by himself and take his meds with no problem
[2020-01-22] MEDS ORDERED: KCL 40 mEq in 100 mL (PREMIX) 100 ML IV ONE ×2 (09:30→13:30)
--- NOTE | 2020-01-22 10:30 | NUR ---
Paracentesis done with 8 liters out.
[2020-01-22] MEDS: NOREPINEPHRINE BITARTRATE 4 MG in NS 246 ML IV PRN ×2 (12:27→18:42)
--- NOTE | 2020-01-22 12:30 | NUR ---
notes- Eating lunch, no complains at this time, is just he is cold. provided warm blanket.
--- NOTE | 2020-01-22 16:00 | NUR ---
Notes- Resting, denies any pain or discomfort. No acute distress noted. afebrile, SR on the monitor.
--- NOTE | 2020-01-22 16:30 | NUR ---
Notes -Has incontinence of urine and stool. change patient and repositioned. No distress noted.
--- NOTE | 2020-01-22 17:00 | NUR ---
Notes- Transfer to room 128 at this time. will continue to monitor patient.
--- NOTE | 2020-01-22 17:40 | NUR ---
Notes- Eating dinner, able to feed self.
--- NOTE | 2020-01-22 18:43 | NUR ---
Notes- Resting, wants to sleep. Refused to take the lactulose at this time. pt stated that he feels full. No acute distress noted. will endorse
--- NOTE | 2020-01-22 19:30 | NUR ---
Opening Notes Pt received from night RN using SBAR. Pt resting with no complaints of pain or distress.
--- NOTE | 2020-01-22 20:50 | NUR ---
Transferred Pt moved from room 127 to ICU 128. Pt is connected to in room monitor.
[2020-01-22] MEDS: MORPHINE 2 MG/ML INJ. SYRINGE IVP PRN (21:29)
[2020-01-23] VITALS (22 sets, daily range): BP systolic 74–115
--- NOTE | 2020-01-23 00:07 | NUR ---
Snacks Pt requested a chocolate pudding, pt tolerated well will continue to monitor.
[2020-01-23] MEDS: NOREPINEPHRINE BITARTRATE 4 MG in NS 246 ML IV PRN ×3 (00:21→22:03)
--- NOTE | 2020-01-23 01:27 | NUR ---
Resting Pt resting in lowest position in bed, will continue to monitor.
[2020-01-23] MEDS: PIPERACILLIN/TAZO 3.375/DEX-IS 50 ML IV SCH ×4 (04:04→21:35)
[2020-01-23] MEDS: LACTULOSE 20 GM/30 ML UDC PO SCH ×6 (04:04→22:12)
--- NOTE | 2020-01-23 05:20 | NUR ---
Initial notes Received full report from security shift supervisor RN using SBAR. Patient is awake, alert and oriented. Not showing any signs of distress and denies any pain at this time.
--- NOTE | 2020-01-23 05:34 | NUR ---
Report Report given to Donya AKINS using SBAR. All pt needs met through duration of shift. Pt's bed in lowest in position with call light within reach. No complaints of pain or distress at this time.
[2020-01-23 06:43] LABS: CREATININE 1.25 mg/dL (0.55-1.30)
--- NOTE | 2020-01-23 06:53 | NUR ---
Patient had a bowel movement, he was cleaned and changed, his lactulose was given this am, IV meds replenished. Pt is not in any kind of distress at this time and he denies any pain. I will give report to am shift nurse.
--- NOTE | 2020-01-23 07:00 | NUR ---
Opening Note Received report from AM nurse using SBAR approach.
--- NOTE | 2020-01-23 08:04 | NUR ---
Critical Lab Potassium 2.3. Documented.
--- NOTE | 2020-01-23 08:05 | NUR ---
MD Rounds Dr. Gardiner at bedside. New orders received.
[2020-01-23 08:06] LABS: POTASSIUM 2.3 mmol/L (3.5-5.1)
[2020-01-23 08:07] LABS: CALCIUM 6.9 mg/dL (8.4-11.0)
[2020-01-23] MEDS ORDERED: POTASSIUM CHLORIDE 20 MEQ TAB.PRT.SR PO ONE (08:15)
--- NOTE | 2020-01-23 08:22 | NUR ---
Critical Lab Potassium 2.3. Documented. Addendum: 01/23/20 at 0823 by Catherine Johnson RN wrong time
[2020-01-23] MEDS: ALBUMIN HUMAN 25% 50 ML IV SCH ×3 (08:46→17:19)
[2020-01-23] MEDS: MULTIVITAMINS TAB 1 TABLET PO SCH (08:50)
[2020-01-23] MEDS: MIDODRINE HCL 5 MG TABLET (PROAMATINE) PO SCH ×3 (08:50→21:37)
[2020-01-23] MEDS: FUROSEMIDE 40 MG TABLET PO SCH ×2 (08:50→21:38)
[2020-01-23] MEDS: ARIPiprazole 5 MG TAB PO SCH (08:51)
[2020-01-23] MEDS: THIAMINE HCL 100 MG TABLET PO SCH (08:51)
[2020-01-23] MEDS: SPIRONOLACTONE 50 MG TABLET (ALDACTONE) PO SCH ×2 (08:51→21:39)
[2020-01-23] MEDS ORDERED: KCL 40 mEq in 100 mL (PREMIX) 100 ML IV ONE (09:00)
[2020-01-23] MEDS: D5NS 1,000 ML IV SCH ×3 (09:00→22:12)
--- NOTE | 2020-01-23 10:15 | NUR ---
Titrated Levophed Titrated Levophed from 10 mcg to 9 mcg. Patient tolerated well. BP 99/60 MAP (75). Will continue to monitor.
--- NOTE | 2020-01-23 11:00 | NUR ---
Closing Note Endorsed report to AM nurse using SBAR approach.
[2020-01-23] MEDS ORDERED: CALCIUM GLUCONATE 2 GM in NS 100 ML IV ONE (17:00)
[2020-01-23] MEDS ORDERED: CALCIUM GLUCONATE 1 GM/10 ML VIAL ONE (17:39)
[2020-01-23] MEDS: CALCIUM CARBONATE 500 MG/ TAB.CHEW PO SCH ×2 (17:44→21:37)
--- NOTE | 2020-01-23 19:43 | NUR ---
Closing note: SBAR report endorsed to Grace AKINS. All Labs, vital signs, and IV drips endorsed.
--- NOTE | 2020-01-23 19:44 | NUR ---
Report recieved from Grace AKINS. All care assumed.
[2020-01-23] MEDS: KCL 20 mEq in 100 mL (PREMIX) 100 ML IV SCH ×2 (21:36→22:09)
[2020-01-23] MEDS: CHOLECALCIFEROL (VITAMIN D3) 2,000 UNIT TABLET PO SCH (21:37)
--- NOTE | 2020-01-23 22:00 | NUR ---
Pt had bowel movement. Semi-solid formed stool. Pt cleaned and given bed bath
[2020-01-24] VITALS (19 sets, daily range): BP systolic 79–110
--- NOTE | 2020-01-24 | NUR ---
blood saturated band-aid over paracentesis puncture site removed. Area cleansed with CHG, prepped with skin prep, sterile/dry dressing and opsite applied to wound.
[2020-01-24] MEDS: MORPHINE 2 MG/ML INJ. SYRINGE IVP PRN ×2 (03:51→22:11)
[2020-01-24] MEDS: LACTULOSE 20 GM/30 ML UDC PO SCH ×6 (03:57→22:11)
[2020-01-24] MEDS: PIPERACILLIN/TAZO 3.375/DEX-IS 50 ML IV SCH ×4 (03:58→21:25)
--- NOTE | 2020-01-24 04:02 | NUR ---
Patient resting quietly. No acute distress noted. Vital signs within normal range.
[2020-01-24 07:00] LABS: BASOPHILS # (AUTO) 0.1 K/uL (0.0-0.2); BASOPHILS % (AUTO) 1.7 % (0.0-2.0); EOSINOPHILS # (AUTO) 0.1 K/uL (0.0-0.4); EOSINOPHILS % (AUTO) 2.4 % (0.0-4.0); HEMATOCRIT 25.3 % (36-54); HEMOGLOBIN 8.8 g/dL (14.0-18.0); LYMPHOCYTES # (AUTO) 0.6 K/uL (1.0-5.5); LYMPHOCYTES % (AUTO) 15.5 % (20.5-51.5); MEAN CORPUSCULAR HEMOGLOBIN 37 pg (27-31); MEAN CORPUSCULAR HGB CONC 35 % (32-36); MEAN CORPUSCULAR VOLUME 104 fL (79.0-98.0); MONOCYTES # (AUTO) 0.6 K/uL (0.0-1.0); MONOCYTES % (AUTO) 14.4 % (1.7-9.3); NEUTROPHILS # (AUTO) 2.7 K/uL (1.8-7.7); RED BLOOD CELL COUNT(AUTO) 2.42 MIL/uL (4.2-6.2); RED CELL DISTRIBUTION WIDTH 19.6 % (9.0-15.0); WHITE BLOOD COUNT (AUTO) 4.1 K/uL (4.8-10.8)
[2020-01-24 07:26] LABS: ALBUMIN 2.3 g/dL (3.4-4.8); CALCIUM 7.1 mg/dL (8.4-11.0); CREATININE 1.06 mg/dL (0.55-1.30); POTASSIUM 3.1 mmol/L (3.5-5.1)
--- NOTE | 2020-01-24 07:32 | NUR ---
Opening Note Patient report received via SBAR from endorsing RN
[2020-01-24 07:44] LABS: TOTAL BILIRUBIN 4.8 mg/dL (0.0-1.0)
--- NOTE | 2020-01-24 07:50 | NUR ---
Nursing Note Dr. Wynn in to see patient, new orders entered
[2020-01-24] MEDS: ARIPiprazole 5 MG TAB PO SCH (08:32)
[2020-01-24] MEDS: CALCIUM CARBONATE 500 MG/ TAB.CHEW PO SCH ×4 (08:32→21:22)
[2020-01-24] MEDS: SPIRONOLACTONE 50 MG TABLET (ALDACTONE) PO SCH ×2 (08:32→21:24)
[2020-01-24] MEDS: NOREPINEPHRINE BITARTRATE 4 MG in NS 246 ML IV PRN (08:33)
[2020-01-24] MEDS: THIAMINE HCL 100 MG TABLET PO SCH (08:33)
[2020-01-24] MEDS: MIDODRINE HCL 5 MG TABLET (PROAMATINE) PO SCH ×3 (08:33→21:22)
[2020-01-24] MEDS: FUROSEMIDE 40 MG TABLET PO SCH ×2 (08:33→21:25)
[2020-01-24] MEDS: CHOLECALCIFEROL (VITAMIN D3) 2,000 UNIT TABLET PO SCH ×2 (08:33→21:24)
[2020-01-24] MEDS: MULTIVITAMINS TAB 1 TABLET PO SCH (08:33)
[2020-01-24] MEDS ORDERED: POTASSIUM CHLORIDE 20 MEQ TAB.PRT.SR PO ONE (09:45)
--- NOTE | 2020-01-24 09:50 | NUR ---
Nursing Note Dr. Gardiner in to see patient, new orders entered
[2020-01-24] MEDS: D5NS 1,000 ML IV SCH (11:12)
[2020-01-24 11:39] LABS: PLATELET COUNT (AUTO) 52 K/uL (130-430)
--- NOTE | 2020-01-24 13:10 | NUR ---
Nursing Note Dr. Pérez in to see patient, no new orders
--- NOTE | 2020-01-24 15:30 | NUR ---
Nursing Note Patinet had loose BM, patient was cleaned, gown changed, linens changed. Patient provided tea as requested.
--- NOTE | 2020-01-24 17:00 | NUR ---
Round Dr. Hobson in to see patient, new orders entered. Physician okay with transfer to Tele. Patient will be monitored on Telemetry status
--- NOTE | 2020-01-24 19:15 | NUR ---
Closing Note Patient report given via SBAR to nightshift RN
--- NOTE | 2020-01-24 19:40 | NUR ---
Report Received from [facility]. All care assumed.
--- NOTE | 2020-01-24 20:00 | NUR ---
Pt awake, alert, oriented. resting in bed. No acute distress at this time. Pt states that he has no pain at this time. No apparent respiratory distress at this time. Paracentesis wound on L abdomen currently has no active bleeding at this time. Pt states he feels the urge to have a bowel movement at this time. assisted to use urinal. PICC line in ALLEN infusing IV fluids, pt tolerating well, no s/s of infiltration or infection at this time. Peripheral angiocath IV in L forearm patent, no s/s of infiltration or infection.
[2020-01-25] VITALS (21 sets, daily range): BP systolic 65–92
--- NOTE | 2020-01-25 | NUR ---
Pt had large bowel movement. stool is loose. Pt provided with skin and moan care. Cleaned and placed on clean linens and clean gown. pt tolerated well.
--- NOTE | 2020-01-25 04:01 | NUR ---
Pt requested and was provided with pudding cups, glass of water, warm tea, extra blankets. Pt resting comfortably in bed.
[2020-01-25] MEDS: D5NS 1,000 ML IV SCH ×2 (06:55→11:33)
[2020-01-25] MEDS: LACTULOSE 20 GM/30 ML UDC PO SCH ×5 (06:57→22:11)
[2020-01-25] MEDS: PIPERACILLIN/TAZO 3.375/DEX-IS 50 ML IV SCH (06:57)
--- NOTE | 2020-01-25 07:15 | NUR ---
Report given to MABLE Abdi using standard SBAR format. All care endorsed. opportunity for questions and concerns, discussion of patient care presented.
[2020-01-25 07:28] LABS: EOSINOPHILS # (AUTO) 0.1 K/uL (0.0-0.4); EOSINOPHILS % (AUTO) 2.1 % (0.0-4.0); HEMOGLOBIN 7.6 g/dL (14.0-18.0); LYMPHOCYTES # (AUTO) 0.5 K/uL (1.0-5.5); LYMPHOCYTES % (AUTO) 16.6 % (20.5-51.5); MEAN CORPUSCULAR HEMOGLOBIN 37 pg (27-31); MEAN CORPUSCULAR HGB CONC 35 % (32-36); MEAN CORPUSCULAR VOLUME 105 fL (79.0-98.0); MONOCYTES # (AUTO) 0.4 K/uL (0.0-1.0); MONOCYTES % (AUTO) 10.6 % (1.7-9.3); NEUTROPHILS # (AUTO) 2.3 K/uL (1.8-7.7); NEUTROPHILS % (AUTO) 69.7 % (40.0-70.0); RED BLOOD CELL COUNT(AUTO) 2.08 MIL/uL (4.2-6.2); RED CELL DISTRIBUTION WIDTH 20.2 % (9.0-15.0); WHITE BLOOD COUNT (AUTO) 3.3 K/uL (4.8-10.8)
--- NOTE | 2020-01-25 07:30 | NUR ---
Closing Note Received plan of care via sbar from endorsing MABLE Pittman
[2020-01-25 07:33] LABS: CALCIUM 7.4 mg/dL (8.4-11.0); CREATININE 1.08 mg/dL (0.55-1.30); POTASSIUM 3.4 mmol/L (3.5-5.1)
[2020-01-25 07:34] LABS: HEMATOCRIT 21.9 % (36-54)
--- NOTE | 2020-01-25 08:07 | NUR ---
Patient on Tele status.
[2020-01-25] MEDS: ARIPiprazole 5 MG TAB PO SCH (08:26)
[2020-01-25] MEDS: FUROSEMIDE 40 MG TABLET PO SCH ×2 (08:26→21:00)
[2020-01-25] MEDS: THIAMINE HCL 100 MG TABLET PO SCH (08:26)
[2020-01-25] MEDS: MIDODRINE HCL 5 MG TABLET (PROAMATINE) PO SCH ×3 (08:27→20:59)
[2020-01-25] MEDS: MULTIVITAMINS TAB 1 TABLET PO SCH (08:27)
[2020-01-25] MEDS: CALCIUM CARBONATE 500 MG/ TAB.CHEW PO SCH ×3 (08:27→21:00)
[2020-01-25] MEDS: CHOLECALCIFEROL (VITAMIN D3) 2,000 UNIT TABLET PO SCH ×2 (08:27→21:00)
[2020-01-25] MEDS: SPIRONOLACTONE 50 MG TABLET (ALDACTONE) PO SCH ×2 (08:28→21:00)
[2020-01-25 09:06] LABS: TOTAL BILIRUBIN 3.9 mg/dL (0.0-1.0)
[2020-01-25 09:28] LABS: PLATELET COUNT (AUTO) 39 K/uL (130-430)
--- NOTE | 2020-01-25 11:27 | NUR ---
Paged Dr. Mar to inform him that patient started at Levophed 2mcg/min.
--- NOTE | 2020-01-25 14:30 | NUR ---
Dr. Pérez at bedside. Received orders to cancel fluids and give 40 MEQ K PO once.
[2020-01-25] MEDS ORDERED: POTASSIUM CHLORIDE 20 MEQ/PKT PACKET PO ONE (14:45)
--- NOTE | 2020-01-25 14:53 | NUR ---
Nutrition F/U Admitting Diagnosis: Hepatic Encephalopathy Medical History Comment: Pt found w/: Septic shock, Hepatitis Encephalopathy, ARF, Hyponatremia, Acute on Chronic Hepatitis, Respiratory Failure rule out COVID-19 per MD notes. PMH: Bipolar, Cirrhosis, Alcohol abuse. Subjective Information: Pt remains in ICU and RD visit was deferred d/t lack of PPE. Per EMR review, Fluid restriction has been ordered today 1200ml per day as nephrology noted a sudden decrease in serum sodium. Currently receiving lactulose and hepatic encephalopathy seems to be improving. His ascites is now minimal. PO intake remains poor (44% average of 9 meals x 3 days). Current Diet Order/Nutrition Support: Mechanical soft x 4 days Pertinent Medications Lasix, VIT D, tums, MVI, Thiamine Pertinent Labs 01/24 Na 122 L, K 3.4 L, BG 88WNL, BUN 14 WNL, CRE 1.08 WNL Skin Integrity Comment: Wilian scale: 14. No skin issues noted, no edema noted. Current % PO Poor (44% average of 9 meals x 3 days) Estimated Energy Expenditure (kcals/day) 5676-0985 kcal/day (30-35 kcal/kg IBW for sepsis) Estimated Protein Required (g/day) 67-101gm/day (1-1.5 gm/kg IBW for Renal Dz predialysis and sepsis) Estimated Fluid Required (l/day) per MD (ARF) Problem/Etiology/Signs/Symptoms Increased nutrient needs r/t metabolic demands AEB estimated calories and protein for sepsis. (*ongoing) Expected Outcomes/Goals Monitor appetite and PO intake w/ goal of pt meeting at least 75% of estimated nutritional needs, labs trending WNL, normal GI function, skin integrity/wt maintenance. Dietitian Recommendations *Continue Mechanical soft diet. *Continue Fluid Restriction 1200ml per day per nephrology. *Encourage pt to increase PO intake. Follow Up High Risk: F/U in 2-3days
--- NOTE | 2020-01-25 15:00 | NUR ---
Dietitian Recommendations *Continue Mechanical soft diet. *Continue Fluid Restriction 1200ml per day per nephrology. *Encourage pt to increase PO intake. Please see Nutrition F/U note for details. MANJEET, RD
--- NOTE | 2020-01-25 16:13 | NUR ---
P.T. NTOES P.T. EVAL COMPLETED; WILL BENEFIT W/ P.T. POST ACUTE STAY.
--- NOTE | 2020-01-25 19:05 | NUR ---
Opening Note Received report from AM nurse using SBAR approach.
--- NOTE | 2020-01-25 19:11 | NUR ---
Closing Note Provided plan of care via sbar to receiving MABLE Reynoso.
--- NOTE | 2020-01-25 21:25 | NUR ---
Levophed restarted Blood Pressure 53/25 MAP 40. Restarted levophed at 2mcg/min. Patient tolerated well. Will continue to monitor.
[2020-01-26] VITALS (24 sets, daily range): BP systolic 69–94
--- NOTE | 2020-01-26 00:15 | NUR ---
CHG Provided patient with CHG bath. New gown changed and new blankets given. Patient tolerated well. Will continue to monitor.
--- NOTE | 2020-01-26 01:25 | NUR ---
Post Transfusion Patient tolerated Blood Transfusion well. No signs or symptoms of distress. Patient did not experience any adverse reactions. Post transfusion Vital Signs: Temperature 97.5, Pulse 66, Respirations 21, Blood Pressure 68/30. Will continue to monitor. Addendum: 01/27/20 at 0138 by Catherine Johnson RN wrong time
--- NOTE | 2020-01-26 01:30 | NUR ---
BM Patient had one large BM. Cleaned patient with dexter wipes. Linens changed. Patient tolerated well. Will continue to monitor.
--- NOTE | 2020-01-26 02:30 | NUR ---
BM Patient had a large BM. Cleaned patient with dexter wipes and changed linens. Will continue to monitor.
[2020-01-26] MEDS: LACTULOSE 20 GM/30 ML UDC PO SCH ×7 (02:43→23:05)
--- NOTE | 2020-01-26 06:15 | NUR ---
BM Patient had a bowel movement. Cleaned patient with dexter wipes and changed linens and gowns. Will continue to monitor.
--- NOTE | 2020-01-26 07:08 | NUR ---
Closing Note Endorsed report to AM nurse using SBAR approach.
--- NOTE | 2020-01-26 07:36 | NUR ---
Opening Note Received plan of care via sbar from endorsing nurse Edgardo AKINS.
[2020-01-26] MEDS: THIAMINE HCL 100 MG TABLET PO SCH (08:26)
[2020-01-26] MEDS: CHOLECALCIFEROL (VITAMIN D3) 2,000 UNIT TABLET PO SCH ×2 (08:26→20:08)
[2020-01-26] MEDS: MIDODRINE HCL 5 MG TABLET (PROAMATINE) PO SCH ×3 (08:26→20:08)
[2020-01-26] MEDS: MULTIVITAMINS TAB 1 TABLET PO SCH (08:27)
[2020-01-26] MEDS: FUROSEMIDE 40 MG TABLET PO SCH ×2 (08:27→20:08)
[2020-01-26] MEDS: ARIPiprazole 5 MG TAB PO SCH (08:28)
[2020-01-26] MEDS: SPIRONOLACTONE 50 MG TABLET (ALDACTONE) PO SCH ×2 (08:29→20:09)
[2020-01-26] MEDS: CALCIUM CARBONATE 500 MG/ TAB.CHEW PO SCH ×4 (08:38→20:08)
--- NOTE | 2020-01-26 09:00 | NUR ---
Dr. Wynn at bedside. Received orders for Paracentesis, albumin, and lab for fluid aspirated from paracentesis. MD will place orders.
--- NOTE | 2020-01-26 09:45 | NUR ---
Dr. Mar at bedside. No new orders.
[2020-01-26] MEDS: ALBUMIN HUMAN 25% 50 ML IV SCH ×3 (10:24→17:03)
[2020-01-26 12:58] LABS: EOSINOPHILS % (AUTO) 0.8 % (0.0-4.0); MONOCYTES # (AUTO) 0.7 K/uL (0.0-1.0)
[2020-01-26 13:02] LABS: CALCIUM 8.1 mg/dL (8.4-11.0); CREATININE 1.66 mg/dL (0.55-1.30); POTASSIUM 4.1 mmol/L (3.5-5.1)
[2020-01-26 13:05] LABS: BASOPHILS % (AUTO) 0.7 % (0.0-2.0); LYMPHOCYTES # (AUTO) 0.7 K/uL (1.0-5.5); LYMPHOCYTES % (AUTO) 19.1 % (20.5-51.5); MEAN CORPUSCULAR HEMOGLOBIN 37 pg (27-31); MEAN CORPUSCULAR HGB CONC 35 % (32-36); MEAN CORPUSCULAR VOLUME 105 fL (79.0-98.0); MONOCYTES % (AUTO) 18.5 % (1.7-9.3); NEUTROPHILS # (AUTO) 2.2 K/uL (1.8-7.7); NEUTROPHILS % (AUTO) 60.9 % (40.0-70.0); WHITE BLOOD COUNT (AUTO) 3.6 K/uL (4.8-10.8)
[2020-01-26 13:06] LABS: RED BLOOD CELL COUNT(AUTO) 1.82 MIL/uL (4.2-6.2)
[2020-01-26 13:08] LABS: ALBUMIN 2.3 g/dL (3.4-4.8); HEMATOCRIT 19.2 % (36-54); HEMOGLOBIN 6.7 g/dL (14.0-18.0); PLATELET COUNT (AUTO) 48 K/uL (130-430); TOTAL BILIRUBIN 3.9 mg/dL (0.0-1.0)
[2020-01-26] MEDS: MORPHINE 2 MG/ML INJ. SYRINGE IVP PRN ×2 (14:10→23:06)
[2020-01-26 14:38] LABS: BODY FLUID SOURCE/ TYPE PARACENTESIS; SOURCE/TYPE ,BODY FLUID PARACENTESIS
[2020-01-26 14:39] LABS: BODY FLUID COLOR YELLOW (LT YELLOW); BODY FLUID TOTAL VOLUME 5200 mL
--- NOTE | 2020-01-26 14:45 | NUR ---
Spoke to Dr. Mar and reported critical H/H and platelet. Received orders for 1 PRBC.
[2020-01-26 15:14] LABS: BF APPEARANCE UNSPUN HAZY (CLEAR); NEUTROPHIL, BODY FLUID 12 %; RBC, BODY FLUID 257 /uL; WBC, BODY FLUID 1183 /uL
[2020-01-26 15:15] LABS: LYMPHOCYTES, BODY FLUID 24 %; MONOCYTES,BODY FLUID 64 %
--- NOTE | 2020-01-26 19:09 | NUR ---
Closing Note Provided plan of care via sbar to receiving MABLE Reynoso.
--- NOTE | 2020-01-26 19:25 | NUR ---
Opening Note Received report from AM nurse using SBAR approach.
--- NOTE | 2020-01-26 21:00 | NUR ---
Transfer Transferred patient from room 127-A to ICU bed 8. Patient tolerated well. No signs or symptoms of distress noted. Will continue to monitor.
--- NOTE | 2020-01-26 22:30 | NUR ---
BT INITIATION: Consent signed per patient, Zafar Burr, agreeing to administration of blood. Blood has been type and crossmatched. Blood sent from blood bank. Information on unit of blood checked against patient wristband at bedside by two nurses. All information matches. Patient or responsible constitution party informed of potential complications associated with blood transfusion. Informed of possible transfusion reaction symptoms. Aware of need to notify nurse at once of itching, shortness of breath, flushing, feeling of impending doom, or other symptoms not previously present. Vital signs taken within 5 minutes prior to initiation of transfusion. RN will remain with patient for first 15 minutes of transfusion at which time vital signs will be re-assessed. Pre Transfusion Vital Signs: Temperature 97.3 Pulse 68 Respirations 12 Blood Pressure 77/45
[2020-01-26 22:48] LABS: BODY FLUID TOTAL PROTEIN < 2.0 g/dL
[2020-01-26 22:49] LABS: BODY FLUID GLUCOSE 99 mg/dL
[2020-01-27] VITALS (24 sets, daily range): BP systolic 68–112
--- NOTE | 2020-01-27 01:25 | NUR ---
Post Transfusion Patient tolerated Blood Transfusion well. No signs or symptoms of distress. Patient did not experience any adverse reactions. Post transfusion Vital Signs: Temperature 97.5, Pulse 66, Respirations 21, Blood Pressure 68/30. Will continue to monitor.
--- NOTE | 2020-01-27 01:30 | NUR ---
Increased Levophed Increased Levophed from 1 mcg/min to 2mcg/min. Patient's blood pressure is 67/26 MAP of 39. Will continue to monitor.
[2020-01-27] MEDS: LACTULOSE 20 GM/30 ML UDC PO SCH ×6 (02:49→22:35)
[2020-01-27] MEDS: NOREPINEPHRINE BITARTRATE 4 MG in NS 246 ML IV PRN ×3 (05:32→22:36)
[2020-01-27] MEDS ORDERED: NOREPINEPHRINE 4 MG/4 ML VIAL IV ONE (05:43)
[2020-01-27 05:59] LABS: BASOPHILS % (AUTO) 0.6 % (0.0-2.0); EOSINOPHILS # (AUTO) 0.1 K/uL (0.0-0.4); EOSINOPHILS % (AUTO) 1.3 % (0.0-4.0); LYMPHOCYTES # (AUTO) 0.8 K/uL (1.0-5.5); LYMPHOCYTES % (AUTO) 21.2 % (20.5-51.5); MEAN CORPUSCULAR HEMOGLOBIN 36 pg (27-31); MEAN CORPUSCULAR HGB CONC 35 % (32-36); MEAN CORPUSCULAR VOLUME 103 fL (79.0-98.0); MONOCYTES # (AUTO) 0.7 K/uL (0.0-1.0); MONOCYTES % (AUTO) 19.3 % (1.7-9.3); NEUTROPHILS # (AUTO) 2.2 K/uL (1.8-7.7); NEUTROPHILS % (AUTO) 57.6 % (40.0-70.0); RED CELL DISTRIBUTION WIDTH 19.7 % (9.0-15.0); WHITE BLOOD COUNT (AUTO) 3.8 K/uL (4.8-10.8)
[2020-01-27 06:48] LABS: ALBUMIN 2.4 g/dL (3.4-4.8); CALCIUM 8.1 mg/dL (8.4-11.0); CREATININE 1.43 mg/dL (0.55-1.30); POTASSIUM 3.9 mmol/L (3.5-5.1); TOTAL BILIRUBIN 4.5 mg/dL (0.0-1.0)
--- NOTE | 2020-01-27 07:15 | NUR ---
Closing Note Endorsed report to AM nurse using SBAR approach.
--- NOTE | 2020-01-27 07:25 | NUR ---
Closing Note Endorsed report to AM nurse using SBAR approach.
[2020-01-27 07:28] LABS: RED BLOOD CELL COUNT(AUTO) 1.96 MIL/uL (4.2-6.2)
[2020-01-27 07:29] LABS: HEMATOCRIT 20.1 % (36-54); PLATELET COUNT (AUTO) 43 K/uL (130-430)
--- NOTE | 2020-01-27 07:30 | NUR ---
Opening Note Received bedside report from endorsing RN for continuation of care. Received patient awake and resting in bed, denies any pain or SOB at this time. Patient on room air. Patient has ALLEN PICC infusing Levophed Drip. No signs or symptoms of acute distress noted. Bed locked in lowest position, bed alarm on, and call light within reach. Fall and safety precautions in place.
[2020-01-27] MEDS: CALCIUM CARBONATE 500 MG/ TAB.CHEW PO SCH ×4 (08:37→21:03)
[2020-01-27] MEDS: CHOLECALCIFEROL (VITAMIN D3) 2,000 UNIT TABLET PO SCH ×2 (08:37→21:03)
[2020-01-27] MEDS: ARIPiprazole 5 MG TAB PO SCH (08:37)
[2020-01-27] MEDS: THIAMINE HCL 100 MG TABLET PO SCH (08:38)
[2020-01-27] MEDS: FUROSEMIDE 40 MG TABLET PO SCH (08:38)
[2020-01-27] MEDS: MULTIVITAMINS TAB 1 TABLET PO SCH (08:38)
[2020-01-27] MEDS: MIDODRINE HCL 5 MG TABLET (PROAMATINE) PO SCH ×3 (08:40→21:05)
--- NOTE | 2020-01-27 09:05 | NUR ---
Dr. Koch in to see patient. No new orders.
--- NOTE | 2020-01-27 09:14 | NUR ---
Dr. Pérez in to see patient. New orders received.
--- NOTE | 2020-01-27 09:15 | NUR ---
Opening Note Received bedside report from endorsing RN for continuation of care. Received patient awake and resting in bed, denies any pain or SOB at this time. Patient on room air. Patient has ALLEN PICC infusing Levophed Drip. No signs or symptoms of acute distress noted. Bed locked in lowest position, bed alarm on, and call light within reach. Fall and safety precautions in place. Addendum: 01/27/20 at 0919 by Sabrina Brasher RN Incorrect time. Meant 0730.
--- NOTE | 2020-01-27 12:00 | NUR ---
BM Patient had large loose BM. Pericare done and bed linens changed. Patient cleaned, turned, and repositioned. No signs or symptoms of acute distress noted.
[2020-01-27] MEDS ORDERED: HYDROCORTISONE SOD SUCC 100 MG/2 ML VIAL IVP ONE (13:15)
--- NOTE | 2020-01-27 13:15 | NUR ---
Dr. El at bedside to see patient. New orders received.
[2020-01-27 14:03] LABS: FREE T4 (FREE THYROXINE) 0.6 ng/dL (0.6-1.6); THYROID STIMULATING HORMONE 8.34 uIu/mL (0.34-4.82)
--- NOTE | 2020-01-27 18:55 | NUR ---
Dr. Zhang at bedside examining patient. New orders received.
--- NOTE | 2020-01-27 19:05 | NUR ---
Closing Note Endorsed bedside report to oncoming RN using SBAR approach for continuation of care.
--- NOTE | 2020-01-27 19:25 | NUR ---
PM SHIFT ASSESSMENT Pt is awake and alert. Pt is on RA, RR even and unlabored. SR on monitor. Skin warm and dry. ALLEN PICCLINE with IVF infusing. Safety precautions in place, call light within reach. Will continue to monitor.
[2020-01-27] MEDS: HYDROCORTISONE SOD SUCC 100 MG/2 ML VIAL IVP SCH (21:03)
[2020-01-27] MEDS: MORPHINE 2 MG/ML INJ. SYRINGE IVP PRN (21:04)
--- NOTE | 2020-01-27 22:30 | NUR ---
CHG CHG BATH GIVEN. PT TOLERATED CARE WELL.
[2020-01-28] VITALS (24 sets, daily range): BP systolic 89–117
[2020-01-28] MEDS: LACTULOSE 20 GM/30 ML UDC PO SCH ×6 (03:15→22:54)
[2020-01-28] MEDS: HYDROCORTISONE SOD SUCC 100 MG/2 ML VIAL IVP SCH ×3 (06:00→21:40)
--- NOTE | 2020-01-28 07:10 | NUR ---
ENDORSEMENT Pt care endorsed to dayshift RN using nursing SBAR.
[2020-01-28 08:04] LABS: BASOPHILS % (AUTO) 0.1 % (0.0-2.0); LYMPHOCYTES # (AUTO) 0.5 K/uL (1.0-5.5); LYMPHOCYTES % (AUTO) 12.7 % (20.5-51.5); MEAN CORPUSCULAR HEMOGLOBIN 36 pg (27-31); MEAN CORPUSCULAR HGB CONC 35 % (32-36); MEAN CORPUSCULAR VOLUME 103 fL (79.0-98.0); MONOCYTES # (AUTO) 0.3 K/uL (0.0-1.0); MONOCYTES % (AUTO) 6.3 % (1.7-9.3); NEUTROPHILS # (AUTO) 3.3 K/uL (1.8-7.7); NEUTROPHILS % (AUTO) 80.9 % (40.0-70.0); PLATELET COUNT (AUTO) 58 K/uL (130-430); RED CELL DISTRIBUTION WIDTH 20.5 % (9.0-15.0); RETICULOCYTE COUNT 3.8 % (0.5-1.5); WHITE BLOOD COUNT (AUTO) 4.1 K/uL (4.8-10.8)
[2020-01-28 08:09] LABS: CALCIUM 8.2 mg/dL (8.4-11.0); CREATININE 1.24 mg/dL (0.55-1.30); POTASSIUM 4.2 mmol/L (3.5-5.1)
[2020-01-28 08:10] LABS: RED BLOOD CELL COUNT(AUTO) 1.89 MIL/uL (4.2-6.2)
[2020-01-28 08:12] LABS: HEMATOCRIT 19.5 % (36-54); HEMOGLOBIN 6.8 g/dL (14.0-18.0)
--- NOTE | 2020-01-28 08:14 | NUR ---
Dr. Zhang at bedside examining patient. New orders received.
[2020-01-28] MEDS: CALCIUM CARBONATE 500 MG/ TAB.CHEW PO SCH ×4 (08:24→21:39)
[2020-01-28] MEDS: FUROSEMIDE 40 MG TABLET PO SCH ×2 (08:24→21:39)
[2020-01-28] MEDS: ARIPiprazole 5 MG TAB PO SCH (08:24)
[2020-01-28] MEDS: MULTIVITAMINS TAB 1 TABLET PO SCH (08:24)
[2020-01-28] MEDS: CHOLECALCIFEROL (VITAMIN D3) 2,000 UNIT TABLET PO SCH ×2 (08:24→21:40)
[2020-01-28] MEDS: THIAMINE HCL 100 MG TABLET PO SCH (08:25)
[2020-01-28] MEDS: MIDODRINE HCL 5 MG TABLET (PROAMATINE) PO SCH ×3 (08:25→21:39)
[2020-01-28] MEDS: SPIRONOLACTONE 50 MG TABLET (ALDACTONE) PO SCH ×2 (08:25→21:38)
[2020-01-28 09:09] LABS: TOTAL IRON BIND. CAPACITY 183 ug/dL (250-450)
--- NOTE | 2020-01-28 09:15 | NUR ---
Dr. Koch at bedside examining patient. No new orders.
--- NOTE | 2020-01-28 09:31 | NUR ---
Physical Therapy Physical therapy being done at bedside.
--- NOTE | 2020-01-28 12:00 | NUR ---
BM Patient had large loose BM. Pericare done and bed linens changed. Patient cleaned, turned, and repositioned. No signs or symptoms of acute distress noted.
--- NOTE | 2020-01-28 12:05 | NUR ---
Dr. El at bedside examining patient. No new orders.
--- NOTE | 2020-01-28 12:43 | NUR ---
PHYSICAL THERAPY CO-SIGN The Physical Therapy Progress Notes documented by Property Management Coordinator have been reviewed. Reviewed/Co-Signed by: Romaine Vásqeuz PT Documentation Done by: Juan Resendez PTA Addendum: 01/28/20 at 1245 by Romaine Vásquez PT Amended: Links added.
--- NOTE | 2020-01-28 13:45 | NUR ---
BT INITIATION: 1 unit PRBCs Consent signed per patient agreeing to administration of blood. Blood has been type and crossmatched. Blood sent from blood bank. Information on unit of blood checked against patient wristband at bedside by two nurses. All information matches. Patient or responsible democrat informed of potential complications associated with blood transfusion. Informed of possible transfusion reaction symptoms. Aware of need to notify nurse at once of itching, shortness of breath, flushing, feeling of impending doom, or other symptoms not previously present. Vital signs taken within 5 minutes prior to initiation of transfusion: HR 80, BP 96/59, RR 28, SpO2 98%, and Temperature 97.2. RN will remain with patient for first 15 minutes of transfusion at which time vital signs will be re-assessed.
--- NOTE | 2020-01-28 15:26 | NUR ---
Nutrition F/U Admitting Diagnosis: Hepatic Encephalopathy Medical History Comment: Pt found w/: Septic shock, Hepatitis Encephalopathy, ARF, Hyponatremia, Acute on Chronic Hepatitis, Respiratory Failure, Decompensated Liver Cirrhosis rule out COVID-19 per MD notes. PMH: Bipolar, Cirrhosis, Alcohol abuse. Subjective Information: Pt remains in ICU and RD visit was deferred d/t lack of PPE. Per MD note, pt with hepatic encephalopathy and ascites 2/2 decompensated liver cirrhosis. S/p paracentesis 2 days ago with 5L removed, on lactulose, MVI+ Thiamine, condition improving per MD note. Noted pt ate 100% all 3 meals yesterday per EMR. On transfusions for drop in HgB this AM. Current Diet Order/Nutrition Support: Mechanical soft x 7 days Current % PO 53%avg x 9 meals Pertinent Medications Lasix, VIT D, tums, MVI, Thiamine Pertinent Labs 01/27 Na 122L, BUN 22H, eGFR 63L, Glu: 139H, H/H: 6.8L/19.5L Skin Integrity Comment: Wilian scale: 17. No skin issues noted, no edema noted. Estimated Energy Expenditure (kcals/day) 9418-2640 kcal/day (30-35 kcal/kg IBW for sepsis) Estimated Protein Required (g/day) 67-101gm/day (1-1.5 gm/kg IBW for Renal Dz predialysis and sepsis) Estimated Fluid Required (l/day) per MD (ARF) Problem/Etiology/Signs/Symptoms Increased nutrient needs r/t metabolic demands AEB estimated calories and protein for sepsis. (*ongoing) Expected Outcomes/Goals Monitor appetite and PO intake w/ goal of pt meeting at least 75% of estimated nutritional needs, labs trending WNL, normal GI function, skin integrity/wt maintenance. Dietitian Recommendations *Continue Mechanical soft diet. *Continue Fluid Restriction 1200ml per day per nephrology. Follow Up High Risk: F/U in 2-3days
--- NOTE | 2020-01-28 15:29 | NUR ---
Dietitian Recommendations *Continue Mechanical soft diet. *Continue Fluid Restriction 1200ml per day per nephrology. Please see Nutrition F/U for further details. LT, RD
--- NOTE | 2020-01-28 17:30 | NUR ---
Dr. Pérez in to see patient. No new orders.
--- NOTE | 2020-01-28 18:30 | NUR ---
BM Patient had large loose BM. Pericare done and bed linens changed. Patient cleaned, turned, and repositioned. No signs or symptoms of acute distress noted.
--- NOTE | 2020-01-28 19:25 | NUR ---
Closing Note Endorsed bedside report to oncoming RN using SBAR approach for continuation of care.
[2020-01-28] MEDS: NOREPINEPHRINE BITARTRATE 4 MG in NS 246 ML IV PRN (19:30)
[2020-01-29] VITALS (16 sets, daily range): BP systolic 89–110
[2020-01-29] MEDS: LACTULOSE 20 GM/30 ML UDC PO SCH ×6 (03:26→22:55)
--- NOTE | 2020-01-29 07:20 | NUR ---
Opening Note Received bedside report from endorsing RN for continuation of care. Received patient awake and resting in bed, denies any pain or SOB at this time. Patient on room air. Patient has ALLEN PICC, no signs of infiltration noted. No signs or symptoms of acute distress noted. Bed locked in lowest position, bed alarm on, and call light within reach. Fall and safety precautions in place.
--- NOTE | 2020-01-29 08:00 | NUR ---
BM Patient had large loose BM. Pericare done and bed linens changed. Patient cleaned, turned, and repositioned. No signs or symptoms of acute distress noted.
[2020-01-29] MEDS: MULTIVITAMINS TAB 1 TABLET PO SCH (08:28)
[2020-01-29] MEDS: CALCIUM CARBONATE 500 MG/ TAB.CHEW PO SCH ×4 (08:28→22:04)
[2020-01-29] MEDS: ARIPiprazole 5 MG TAB PO SCH (08:29)
[2020-01-29] MEDS: THIAMINE HCL 100 MG TABLET PO SCH (08:29)
[2020-01-29] MEDS: FUROSEMIDE 40 MG TABLET PO SCH ×2 (08:29→22:04)
[2020-01-29] MEDS: CHOLECALCIFEROL (VITAMIN D3) 2,000 UNIT TABLET PO SCH ×2 (08:29→22:03)
[2020-01-29] MEDS: HYDROCORTISONE SOD SUCC 100 MG/2 ML VIAL IVP SCH ×3 (08:29→22:04)
[2020-01-29] MEDS: SPIRONOLACTONE 50 MG TABLET (ALDACTONE) PO SCH ×2 (08:30→22:03)
[2020-01-29] MEDS: MIDODRINE HCL 5 MG TABLET (PROAMATINE) PO SCH ×3 (08:31→22:04)
--- NOTE | 2020-01-29 09:34 | NUR ---
Dr. Koch at bedside examining patient. New orders received for labs tomorrow morning.
[2020-01-29 09:46] LABS: BASOPHILS % (AUTO) 0.2 % (0.0-2.0); HEMATOCRIT 24.9 % (36-54); HEMOGLOBIN 8.5 g/dL (14.0-18.0); LYMPHOCYTES # (AUTO) 0.9 K/uL (1.0-5.5); LYMPHOCYTES % (AUTO) 13.3 % (20.5-51.5); MEAN CORPUSCULAR HEMOGLOBIN 35 pg (27-31); MEAN CORPUSCULAR HGB CONC 34 % (32-36); MEAN CORPUSCULAR VOLUME 101 fL (79.0-98.0); MONOCYTES # (AUTO) 0.7 K/uL (0.0-1.0); MONOCYTES % (AUTO) 10.8 % (1.7-9.3); NEUTROPHILS # (AUTO) 5.2 K/uL (1.8-7.7); NEUTROPHILS % (AUTO) 75.7 % (40.0-70.0); PLATELET COUNT (AUTO) 53 K/uL (130-430); RED BLOOD CELL COUNT(AUTO) 2.46 MIL/uL (4.2-6.2); RED CELL DISTRIBUTION WIDTH 22.3 % (9.0-15.0); WHITE BLOOD COUNT (AUTO) 6.9 K/uL (4.8-10.8)
[2020-01-29 09:58] LABS: CREATININE 1.62 mg/dL (0.55-1.30); POTASSIUM 4.2 mmol/L (3.5-5.1)
--- NOTE | 2020-01-29 12:00 | NUR ---
Dr. El at bedside to see patient. No new orders.
--- NOTE | 2020-01-29 12:14 | NUR ---
Dr. Pérez in to see patient. New orders received for labs.
--- NOTE | 2020-01-29 12:24 | NUR ---
Dr. Hobson at bedside to see patient. New orders received.
--- NOTE | 2020-01-29 12:27 | NUR ---
Telemetry Status Patient is stable to transfer to telemetry unit per Dr. Hobson. Patient will remain in ICU and be monitored as telemetry status until hospital room and bed become available.
[2020-01-29] MEDS ORDERED: PANTOPRAZOLE SODIUM 40 MG TAB PO ONE (12:30)
--- NOTE | 2020-01-29 15:56 | NUR ---
Transfer to Telemetry Patient transferred to telemetry unit on continuous personnel monitor using ACLS protocol. ACLS RN present at all times. No signs or symptoms of acute distress noted. Endorsed bedside report to MST RN using SBAR approach for continuation of care.
--- NOTE | 2020-01-29 16:00 | NUR ---
received pt transferred from ICU,awake,alert,afebrile,vital sign stable,picc line in right upper arm intact, call light & personal items within pt reach,safety maintained.continue to monitor pt.
--- NOTE | 2020-01-29 18:00 | NUR ---
incontinent of large loose yellow stool,pericare rendered,perirectal redness noted,applied z guard ointment,large bruises in right lateral back and both heels reddened.repositioned for comfort,1200 cc fluid restriction reinforced.
--- NOTE | 2020-01-29 19:30 | NUR ---
RECEIVED REPORT AT BED SIDE FROM OBIE AKINS.
--- NOTE | 2020-01-29 21:30 | NUR ---
PT AAOX4, SKIN W/D TO TOUCH JAUNDICED. FONTANA W/ MARKED WEAKNESS. AT 1940 PT W/ N/V, ZOFRAN GIVEN, PT W/ RELIEF.
[2020-01-29] MEDS ORDERED: PANTOPRAZOLE SODIUM 40 MG/VIAL (PROTONIX) IVP ONE (22:45)
[2020-01-29] MEDS: NACL 0.9% 1,000 ML IV SCH (23:04)
[2020-01-29 23:36] LABS: BASOPHILS % (AUTO) 0.2 % (0.0-2.0); HEMATOCRIT 23.4 % (36-54); HEMOGLOBIN 8.1 g/dL (14.0-18.0); LYMPHOCYTES # (AUTO) 0.7 K/uL (1.0-5.5); LYMPHOCYTES % (AUTO) 9.8 % (20.5-51.5); MEAN CORPUSCULAR HEMOGLOBIN 35 pg (27-31); MEAN CORPUSCULAR HGB CONC 35 % (32-36); MEAN CORPUSCULAR VOLUME 101 fL (79.0-98.0); MONOCYTES # (AUTO) 0.6 K/uL (0.0-1.0); NEUTROPHILS # (AUTO) 5.8 K/uL (1.8-7.7); PLATELET COUNT (AUTO) 59 K/uL (130-430); RED BLOOD CELL COUNT(AUTO) 2.32 MIL/uL (4.2-6.2); RED CELL DISTRIBUTION WIDTH 22.6 % (9.0-15.0); WHITE BLOOD COUNT (AUTO) 7.1 K/uL (4.8-10.8)
--- NOTE | 2020-01-29 23:50 | NUR ---
PT W/ N/V X5, COFFEE GROUND EMESIS. DR PULLIAM CALLED AND MADE AWARE. NEW ORDERS GIVEN. PROTONIX 80 MG IVP GIVEN, IVF @ 60 ML/HR.
[2020-01-30] VITALS (14 sets, daily range): BP systolic 71–95
[2020-01-30] MEDS ORDERED: ACETAMINOPHEN 325 MG TABLET PO PRN (01:00)
--- NOTE | 2020-01-30 01:30 | NUR ---
PT VOMITUS CLEANED UP. PT ASLEEP AT PRESENT, VOMITING SUBSIDED.
--- NOTE | 2020-01-30 03:30 | NUR ---
ON ROUNDS PATIENT ASLEEP, RESP REG NON LABORED, IN NAD
[2020-01-30] MEDS: LACTULOSE 20 GM/30 ML UDC PO SCH ×5 (03:41→22:00)
--- NOTE | 2020-01-30 05:48 | NUR ---
CONSULTATION PAGED REASON FOR CONSULTATION: VOMITING BLOOD WAS CONSULT CALLED? Y PERSON WHO WAS NOTIFIED: KRIS CONSULTING PHYSICIAN: DR. FINN SHOE STICKS REPAIRER SPECIALTY: GI SHOE STICKS REPAIRER PHONE NUMBER: [phone] REQUESTING PHYSICIAN: DR. PULLIAM Addendum: 01/30/20 at 0550 by Ann Se[facility]/ DR. NEWELL BRAND SPECIALIST FOR THE WEEKEND
[2020-01-30] MEDS: HYDROCORTISONE SOD SUCC 100 MG/2 ML VIAL IVP SCH ×3 (06:09→23:37)
--- NOTE | 2020-01-30 07:05 | NUR ---
PT ENDORSED: REPORT TO YARITZA RAGLAND.
--- NOTE | 2020-01-30 08:00 | NUR ---
AWAKE,ALERT,BP DECREASED TO 71/40,IVF NS RUNS @ 60CC/HR VIA PICC LINE IN LEFT UPPER ARM,PT SAID HE IS FEELING WEAK NPO STATUS, CALLED AND START TO GIVE MIDODRINE 10MG PO TID PER DR ORDER.NEEDS ATTENDED,CALL LIGHT & PERSONAL ITEMS WITHIN PT REACH,SAFETY MAINTAINED.
[2020-01-30] MEDS: MIDODRINE HCL 5 MG TABLET (PROAMATINE) PO SCH ×3 (08:12→22:05)
[2020-01-30] MEDS ORDERED: OCTREOTIDE ACETATE 50 MCG/ML AMP IVP ONE (08:15)
[2020-01-30] MEDS: CALCIUM CARBONATE 500 MG/ TAB.CHEW PO SCH ×4 (08:30→22:01)
[2020-01-30] MEDS ORDERED: PANTOPRAZOLE SODIUM 40 MG TAB PO SCH (09:00)
[2020-01-30] MEDS ORDERED: PANTOPRAZOLE SODIUM 80 MG in NS 100 ML IV ONE (09:00)
[2020-01-30] MEDS: ARIPiprazole 5 MG TAB PO SCH (09:00)
[2020-01-30] MEDS ORDERED: PANTOPRAZOLE SODIUM 40 MG/VIAL (PROTONIX) IVP SCH (09:00)
--- NOTE | 2020-01-30 09:00 | NUR ---
RECHECKED BP 79/48,PULS 71, HERE AND SEEN PT FOR GI CONSULT, NOTIFIED OF PT HAD HEMATEMESIS AND DISTENDED ABDOMEN,ORDERS RECEIVED AND CARRIED OUT.
[2020-01-30 09:01] LABS: ALBUMIN 2.2 g/dL (3.4-4.8); CALCIUM 8.7 mg/dL (8.4-11.0); CREATININE 2.26 mg/dL (0.55-1.30); POTASSIUM 4.4 mmol/L (3.5-5.1); TOTAL BILIRUBIN 6.2 mg/dL (0.0-1.0)
[2020-01-30 09:05] LABS: INR 2.3 (0.80-1.20)
[2020-01-30 09:19] LABS: PROTHROMBIN TIME 23.1 SECS (9.5-12.5)
[2020-01-30 09:40] LABS: BASOPHILS % (AUTO) 0.6 % (0.0-2.0); LYMPHOCYTES # (AUTO) 0.6 K/uL (1.0-5.5); LYMPHOCYTES % (AUTO) 8.4 % (20.5-51.5); MEAN CORPUSCULAR HEMOGLOBIN 35 pg (27-31); MEAN CORPUSCULAR HGB CONC 34 % (32-36); MEAN CORPUSCULAR VOLUME 102 fL (79.0-98.0); MONOCYTES % (AUTO) 13.3 % (1.7-9.3); NEUTROPHILS % (AUTO) 77.7 % (40.0-70.0); PLATELET COUNT (AUTO) 51 K/uL (130-430); RED CELL DISTRIBUTION WIDTH 22.2 % (9.0-15.0); WHITE BLOOD COUNT (AUTO) 7.7 K/uL (4.8-10.8)
[2020-01-30] MEDS: OCTREOTIDE ACETATE 1,250 MCG in NS 250 ML IV SCH (09:41)
[2020-01-30] MEDS: cefTRIAXone 1 GM in D5W 50 ML IV SCH (09:41)
--- NOTE | 2020-01-30 10:00 | NUR ---
GIVE IV ANTIBIOTIC DUE, CAME AND SEEN PT.UPDATED MD OF PT CONDITION.CONTINUE TO MONITOR PT.
[2020-01-30 10:02] LABS: RED BLOOD CELL COUNT(AUTO) 1.94 MIL/uL (4.2-6.2)
[2020-01-30 10:05] LABS: HEMOGLOBIN 6.8 g/dL (14.0-18.0)
[2020-01-30 10:06] LABS: HEMATOCRIT 19.8 % (36-54)
--- NOTE | 2020-01-30 10:45 | NUR ---
RECEIVED CRITICAL LOW HGB 6.8,HCT 19.8, CALLED AND NOTIFIED,OBTAINED ORDER TO TRANSFUSE 2 UNITS 2 UNIT PRBC AND TRANSFER TO ICU PER ORDER.
--- NOTE | 2020-01-30 12:00 | NUR ---
offered clear liquid diet per dr order,hourly rounds made,safety maintained.continue to monitor pt.
[2020-01-30] MEDS: MULTIVITAMINS TAB 1 TABLET PO SCH (12:02)
[2020-01-30] MEDS: CHOLECALCIFEROL (VITAMIN D3) 2,000 UNIT TABLET PO SCH ×2 (12:02→22:01)
[2020-01-30] MEDS: THIAMINE HCL 100 MG TABLET PO SCH (12:02)
[2020-01-30] MEDS: PANTOPRAZOLE SODIUM 40 MG in NS 50 ML IV SCH ×3 (13:44→23:36)
--- NOTE | 2020-01-30 14:00 | NUR ---
transfer to ICU by bed,report endorsed nurse schuler at bedside.
--- NOTE | 2020-01-30 14:10 | NUR ---
Transferred Pt transferred to ICU #[id number] ([id number]), transferred to ICU bed via slide board. PT connected to in room monitor. Report received from Marcella AKINS
--- NOTE | 2020-01-30 14:30 | NUR ---
Incontinent Pt cleaned and provided new linen due to being incontinent of bowel and bladder. Pt tolerated well.
--- NOTE | 2020-01-30 15:02 | NUR ---
BT INITIATION: Consent signed per pt agreeing to administration of blood. Blood has been type and crossmatched. Blood sent from blood bank. Information on unit of blood checked against patient wristband at bedside by two nurses. All information matches. Patient or responsible republican informed of potential complications associated with blood transfusion. Informed of possible transfusion reaction symptoms. Aware of need to notify nurse at once of itching, shortness of breath, flushing, feeling of impending doom, or other symptoms not previously present. Vital signs taken within 5 minutes prior to initiation of transfusion. RN will remain with patient for first 15 minutes of transfusion at which time vital signs will be re-assessed.
[2020-01-30] MEDS: NACL 0.9% 1,000 ML IV SCH (16:24)
--- NOTE | 2020-01-30 17:05 | NUR ---
Resting Pt resting, no complaints of distress at this time. Will continue to monitor
--- NOTE | 2020-01-30 19:23 | NUR ---
Closing Notes Pt endorsed to night RN using SBR. Pts dinner is at bedside and pt stated " I will eat in a little bit".
--- NOTE | 2020-01-30 19:55 | NUR ---
PAGED DR. PULLIAM FOR ORDERS SPOKE TO:LIS
[2020-01-30] MEDS ORDERED: MORPHINE 2 MG/ML INJ. SYRINGE ONE (20:19)
[2020-01-30] MEDS ORDERED: MORPHINE 2 MG/ML INJ. SYRINGE IVP PRN (20:30)
[2020-01-31] VITALS (24 sets, daily range): BP systolic 79–107
[2020-01-31 01:44] LABS: INR 2.6 (0.80-1.20); PROTHROMBIN TIME 25.7 SECS (9.5-12.5)
[2020-01-31] MEDS: PANTOPRAZOLE SODIUM 40 MG in NS 50 ML IV SCH ×5 (02:59→20:00)
[2020-01-31] MEDS: LACTULOSE 20 GM/30 ML UDC PO SCH ×6 (03:00→23:27)
[2020-01-31 06:45] LABS: BASOPHILS % (AUTO) 0.5 % (0.0-2.0); HEMATOCRIT 25.8 % (36-54); LYMPHOCYTES # (AUTO) 0.6 K/uL (1.0-5.5); LYMPHOCYTES % (AUTO) 12.1 % (20.5-51.5); MEAN CORPUSCULAR HEMOGLOBIN 34 pg (27-31); MEAN CORPUSCULAR HGB CONC 35 % (32-36); MEAN CORPUSCULAR VOLUME 98 fL (79.0-98.0); MONOCYTES # (AUTO) 0.5 K/uL (0.0-1.0); MONOCYTES % (AUTO) 10.2 % (1.7-9.3); NEUTROPHILS # (AUTO) 4.1 K/uL (1.8-7.7); NEUTROPHILS % (AUTO) 77.2 % (40.0-70.0); RED BLOOD CELL COUNT(AUTO) 2.64 MIL/uL (4.2-6.2); RED CELL DISTRIBUTION WIDTH 20.5 % (9.0-15.0); WHITE BLOOD COUNT (AUTO) 5.3 K/uL (4.8-10.8)
[2020-01-31 06:54] LABS: INR 2.4 (0.80-1.20); PROTHROMBIN TIME 24.2 SECS (9.5-12.5)
[2020-01-31 07:02] LABS: PLATELET COUNT (AUTO) 36 K/uL (130-430)
[2020-01-31 07:10] LABS: ALBUMIN 2.2 g/dL (3.4-4.8); CALCIUM 8.5 mg/dL (8.4-11.0); CREATININE 2.77 mg/dL (0.55-1.30); POTASSIUM 4.5 mmol/L (3.5-5.1); TOTAL BILIRUBIN 6.7 mg/dL (0.0-1.0)
--- NOTE | 2020-01-31 07:35 | NUR ---
Opening Notes Pt received from Seth AKINS using SBAR. Pt denies any pain or distress at this time.
[2020-01-31] MEDS: CALCIUM CARBONATE 500 MG/ TAB.CHEW PO SCH ×4 (08:30→20:34)
[2020-01-31] MEDS: ARIPiprazole 5 MG TAB PO SCH (09:00)
[2020-01-31] MEDS: MULTIVITAMINS TAB 1 TABLET PO SCH (09:00)
[2020-01-31] MEDS: CHOLECALCIFEROL (VITAMIN D3) 2,000 UNIT TABLET PO SCH ×2 (09:00→20:34)
[2020-01-31] MEDS: THIAMINE HCL 100 MG TABLET PO SCH (09:00)
[2020-01-31] MEDS: MIDODRINE HCL 5 MG TABLET (PROAMATINE) PO SCH ×3 (09:00→20:34)
--- NOTE | 2020-01-31 09:02 | NUR ---
Resting Pt resting in bed with no complaints of pain, will continue to monitor.
[2020-01-31] MEDS: cefTRIAXone 1 GM in D5W 50 ML IV SCH (10:29)
[2020-01-31] MEDS: OCTREOTIDE ACETATE 1,250 MCG in NS 250 ML IV SCH (10:30)
[2020-01-31] MEDS ORDERED: PHYTONADIONE 10 MG in NS 50 ML IV ONE (10:30)
[2020-01-31] MEDS: NACL 0.9% 1,000 ML IV SCH (10:31)
[2020-01-31] MEDS ORDERED: fentaNYL CITRATE/PF 100 MCG/2 ML AMP ONE (11:45)
[2020-01-31] MEDS ORDERED: SIMETHICONE 40 MG/0.6 ML ML ONE (11:46)
[2020-01-31 12:19] LABS: HAPTOGLOBIN <10 mg/dL (29-370)
--- NOTE | 2020-01-31 12:50 | NUR ---
EGD MD and Out pt GI staff at bedside with pt. Will be performing EDG shortly.
[2020-01-31] MEDS: MIDAZOLAM HCL 5 MG/5 ML VIAL ONE ×2 (12:54→12:56)
[2020-01-31] MEDS ORDERED: SODIUM BICARBONATE 8.4% JECT 50 MEQ/50 ML SYRINGE IVP ONE (13:00)
--- NOTE | 2020-01-31 14:20 | NUR ---
Resting Pt is resting in bed with no complaints of pain or distress. Will continue to monitor
[2020-01-31] MEDS: HYDROCORTISONE SOD SUCC 100 MG/2 ML VIAL IVP SCH ×2 (14:30→23:28)
--- NOTE | 2020-01-31 15:29 | NUR ---
Nutrition F/U Admitting Diagnosis: Hepatic Encephalopathy Medical History Comment: Pt found w/: Septic shock, Hepatitis Encephalopathy, ARF, Hyponatremia, Acute on Chronic Hepatitis, Respiratory Failure, Decompensated Liver Cirrhosis rule out COVID-19 per MD notes. PMH: Bipolar, Cirrhosis, Alcohol abuse. Subjective Information: Pt remains in ICU and RD visit was deferred d/t lack of PPE. Per MD note, pt with hepatic encephalopathy and ascites 2/2 decompensated liver cirrhosis. Per MD progress note, EGD showed esophagitis causing GI bleed. Patient was NPO but was offered clear liquid diet. Current Diet Order/Nutrition Support: Clear Liquid Diet x0 days Current % PO N/A Pertinent Medications Lasix, VIT D, tums, MVI, Thiamine Pertinent Labs 01/30 Na 123L, BUN 53H, eGFR 25L, AST 66H Skin Integrity Comment: Wilian scale: 16. No skin issues noted, no edema noted. Estimated Energy Expenditure (kcals/day) 9112-4784 kcal/day (30-35 kcal/kg IBW for sepsis) Estimated Protein Required (g/day) 67-101gm/day (1-1.5 gm/kg IBW for Renal Dz predialysis and sepsis) Estimated Fluid Required (l/day) per MD (ARF) Problem/Etiology/Signs/Symptoms Increased nutrient needs r/t metabolic demands AEB estimated calories and protein for sepsis. (*Ongoing) Expected Outcomes/Goals Monitor appetite and PO intake w/ goal of pt meeting at least 75% of estimated nutritional needs, labs trending WNL, normal GI function, skin integrity/wt maintenance. Dietitian Recommendations *Advance diet to Mechanical soft diet if/when med barbie. *Continue Fluid Restriction 1200ml per day per nephrology. Follow Up High Risk: F/U in 2-3days
--- NOTE | 2020-01-31 15:34 | NUR ---
Dietitian Recommendations *Advance diet to Mechanical soft diet if/when med barbie. *Continue Fluid Restriction 1200ml per day per nephrology. Please see Nutrition Follow Up for details. CATHERINE RIVERO
--- NOTE | 2020-01-31 17:40 | NUR ---
Incontinent Pt is incontinent of bowel and bladder, pt was cleaned and z-guard applied to perineal area.
--- NOTE | 2020-01-31 18:05 | NUR ---
Dinner Dinner tray provided to pt
--- NOTE | 2020-01-31 19:15 | NUR ---
Closing Notes Pt endorsed to night RN using SBAR. Pt resting in bed with no complaints of pain or distress.
--- NOTE | 2020-01-31 19:20 | NUR ---
OPENING NOTE: Received SBAR report from off coming RN for continuity of care. Pt resting in bed without any signs or symptoms of distress. Will continue to monitor and assess.
--- NOTE | 2020-01-31 20:30 | NUR ---
Pt resting in bed without any signs or symptoms of distress. Pt remains on RA with O2 saturations above 90%. R) upper arm PICC in place with Protonix gtt infusing @ 10 ml/hr, Sandostatin gtt infusing @ 10.25 ml/hr. Pt provided with scheduled evening medications per EMAR, pt tolerated well. Pt took 100% of Ensure. Pt c/o 8/10 back pain, provided PRN pain medication, repositioning, and emotional support. Encouraged pt to change positions frequently for skin breakdown prevention. Will continue to monitor and assess pt.
[2020-02-01] VITALS (18 sets, daily range): BP systolic 81–122
[2020-02-01] MEDS: NACL 0.9% 1,000 ML IV SCH ×2 (00:43→04:46)
[2020-02-01] MEDS: PANTOPRAZOLE SODIUM 40 MG in NS 50 ML IV SCH ×3 (01:00→11:30)
[2020-02-01] MEDS: LACTULOSE 20 GM/30 ML UDC PO SCH ×4 (02:55→15:11)
--- NOTE | 2020-02-01 06:00 | NUR ---
CHG CHG bath provided, pt tolerated well. Pt had 1 medium BM. Full linen change provided.
--- NOTE | 2020-02-01 07:34 | NUR ---
CLOSING NOTE: Endorsed SBAR report to oncoming RN for continuity of care.
--- NOTE | 2020-02-01 07:50 | NUR ---
AM ASSESSMENT. PT ALERT, VERBALLY RESPONSIVE, DENIES PAIN, ABDOMEN DISTENDED, NEEDS ASSESSED AND ATTENDED, PT RECEIVING PROTONIX DRIP AT 8MG/HR, SANDOSTATIN DRIP AT 10.25 ML PER HR INTO PICC PORTS, PLUS NS AT 60 ML PER HR. CALL LIGHT IN REACH, ENCOURAGED PT TO CALL FOR NURSE IF ASSISTANCE IS NEEDED.
--- NOTE | 2020-02-01 08:13 | NUR ---
BLOOD DRAW. MED PEDS IN THE ROOM, BLOOD SAMPLE TAKEN.
[2020-02-01] MEDS: cefTRIAXone 1 GM in D5W 50 ML IV SCH (08:18)
[2020-02-01] MEDS: MULTIVITAMINS TAB 1 TABLET PO SCH (08:19)
[2020-02-01] MEDS: ARIPiprazole 5 MG TAB PO SCH (08:19)
[2020-02-01] MEDS: CHOLECALCIFEROL (VITAMIN D3) 2,000 UNIT TABLET PO SCH (08:19)
[2020-02-01 08:26] LABS: BASOPHILS # (AUTO) 0.1 K/uL (0.0-0.2); BASOPHILS % (AUTO) 1.5 % (0.0-2.0); EOSINOPHILS % (AUTO) 0.1 % (0.0-4.0); HEMATOCRIT 26.2 % (36-54); HEMOGLOBIN 8.9 g/dL (14.0-18.0); LYMPHOCYTES # (AUTO) 0.6 K/uL (1.0-5.5); LYMPHOCYTES % (AUTO) 11.4 % (20.5-51.5); MEAN CORPUSCULAR HEMOGLOBIN 34 pg (27-31); MEAN CORPUSCULAR HGB CONC 34 % (32-36); MEAN CORPUSCULAR VOLUME 99 fL (79.0-98.0); MONOCYTES # (AUTO) 0.5 K/uL (0.0-1.0); MONOCYTES % (AUTO) 9.7 % (1.7-9.3); NEUTROPHILS # (AUTO) 4.3 K/uL (1.8-7.7); NEUTROPHILS % (AUTO) 77.3 % (40.0-70.0); PLATELET COUNT (AUTO) 89 K/uL (130-430); RED BLOOD CELL COUNT(AUTO) 2.65 MIL/uL (4.2-6.2); RED CELL DISTRIBUTION WIDTH 20.5 % (9.0-15.0); WHITE BLOOD COUNT (AUTO) 5.6 K/uL (4.8-10.8)
[2020-02-01] MEDS: CALCIUM CARBONATE 500 MG/ TAB.CHEW PO SCH ×2 (08:30→12:30)
[2020-02-01 08:55] LABS: ALBUMIN 2.3 g/dL (3.4-4.8); CALCIUM 8.2 mg/dL (8.4-11.0); CREATININE 3.27 mg/dL (0.55-1.30); POTASSIUM 3.9 mmol/L (3.5-5.1); TOTAL BILIRUBIN 6.5 mg/dL (0.0-1.0)
[2020-02-01] MEDS: MIDODRINE HCL 5 MG TABLET (PROAMATINE) PO SCH ×2 (10:00→15:12)
[2020-02-01] MEDS: OCTREOTIDE ACETATE 1,250 MCG in NS 250 ML IV SCH (10:01)
[2020-02-01 11:12] LABS: INR 2.2 (0.80-1.20)
[2020-02-01] MEDS: HYDROCORTISONE SOD SUCC 100 MG/2 ML VIAL IVP SCH (11:23)
--- NOTE | 2020-02-01 14:00 | NUR ---
ANXIETY. PT EXPRESSED TO LEAVE THE HOSPITAL, "I WANT TO SEE MY DOG", STAYED WITH PT TO TALK, PT UPSET, AND CALMED DOWN WHEN ANOTHER STAFF WENT TO SPEAK TO HIM.
--- NOTE | 2020-02-01 14:25 | NUR ---
TIME OUT. PARACENTESIS TRAY SET UP. DR ALMODOVAR AT BEDSIDE, TIME OUT DONE PRIOR TO PROCEDURE.
--- NOTE | 2020-02-01 15:00 | NUR ---
TEST. PT TOLERATED HIS PARACENTESIS. BAND AID TO RIGHT SIDE OF THE ABDOMEN.
[2020-02-01] MEDS: THIAMINE HCL 100 MG TABLET PO SCH (15:38)
--- NOTE | 2020-02-01 16:25 | NUR ---
CALLED DR SANCHEZ AND SPOKE TO HIM ON THE PHONE. REPORTED THAT PT WANTING TO GO HOME, WORRIED ABOUT HIS DOG. PT SAID THAT WE CAN NOT KEEP HIM IN THE HOSPITAL. HE CALLED HIS FRIEND EDNA TO COME AND PICK HIM UP. NURSING STATION ENGINEER CHIEF ARA MADE AWARE THAT PT DESIRES TO GO HOME.
--- NOTE | 2020-02-01 17:00 | NUR ---
PICC REMOVED PRIOR TO D/C
--- NOTE | 2020-02-01 17:20 | NUR ---
AMA PT WANTED TO GET HOME, RISKS AND CONSEQUENCES INVOLVED IN LEAVING THE HOSPITAL GIVEN, PT UNDERSTANDS. AMA FORM SIGNED. RETURNED TO PT HIS SHIRT AND SOCKS. HOSPITAL BLANKET TO COVER HIM PROVIDED. WHEELED OUT PT, IDENTIFICATION BAND REMOVED. HE CALLED HIS FRIEND TO PICK HIM UP.
[2020-02-01 19:50] LABS: APPEARANCE,SPUN,BODY FLUID HAZY (CLEAR); BF APPEARANCE UNSPUN CLOUDY (CLEAR); BODY FLUID SOURCE/ TYPE ASCITES; SOURCE/TYPE ,BODY FLUID PARACENTESIS
[2020-02-01 19:51] LABS: BODY FLUID COLOR RED (LT YELLOW); BODY FLUID TOTAL VOLUME 6000 mL; LYMPHOCYTES, BODY FLUID 56 %; NEUTROPHIL, BODY FLUID 44 %; RBC, BODY FLUID 12111 /uL; WBC, BODY FLUID 12 /uL
[2020-02-01 23:23] LABS: BODY FLUID GLUCOSE 108 mg/dL
[2020-02-01 23:24] LABS: BODY FLUID TOTAL PROTEIN 0.6 g/dL
== END 2020-02-01 17:20 | disposition left against medical advice (07) | DRG 720 ==
LOC: SED 16:09 → STU 19:34 → MERGE 19:34 → EEVIPCON 19:34 → SIC 19:35 → STU 01-22 17:00 → SIC 01-22 21:00 → SMU 01-29 15:45 → STU 01-29 19:12 → SIC 01-30 13:52
PROVIDERS: ADMIT Internal Medicine Hospice and Palliative Medicine; ATTEND Internal Medicine Hospice and Palliative Medicine
PROC: 02HV33Z Insertion of Infusion Device into Superior Vena Cava, Percutaneous Approach (ICD-10-PCS; 2020-01-18)
PROC: 0W9G3ZZ Drainage of Peritoneal Cavity, Percutaneous Approach (ICD-10-PCS; 2020-01-20)
PROC: 0W9G3ZZ Drainage of Peritoneal Cavity, Percutaneous Approach (ICD-10-PCS; 2020-01-22)
PROC: 30233R1 Transfusion of Nonautologous Platelets into Peripheral Vein, Percutaneous Approach (ICD-10-PCS; principal; 2020-01-26)
PROC: 0W9G3ZZ Drainage of Peritoneal Cavity, Percutaneous Approach (ICD-10-PCS; 2020-01-26)
PROC: 30233N1 Transfusion of Nonautologous Red Blood Cells into Peripheral Vein, Percutaneous Approach (ICD-10-PCS; 2020-01-31)
PROC: 0DB68ZX Excision of Stomach, Via Natural or Artificial Opening Endoscopic, Diagnostic (ICD-10-PCS; 2020-01-31)
PROC: 0W9G3ZZ Drainage of Peritoneal Cavity, Percutaneous Approach (ICD-10-PCS; 2020-02-01)
DX: A41.9 Sepsis, unspecified organism (principal); N17.0 Acute kidney failure with tubular necrosis; J96.21 Acute and chronic respiratory failure with hypoxia; E43 Unspecified severe protein-calorie malnutrition; D61.818 Other pancytopenia; R65.21 Severe sepsis with septic shock; R57.1 Hypovolemic shock; G93.41 Metabolic encephalopathy; K22.11 Ulcer of esophagus with bleeding; N17.9 Acute kidney failure, unspecified; K72.90 Hepatic failure, unspecified without coma; Z53.29 Procedure and treatment not carried out because of patient's decision for other reasons; E87.1 Hypo-osmolality and hyponatremia; K29.71 Gastritis, unspecified, with bleeding; E87.6 Hypokalemia; F10.20 Alcohol dependence, uncomplicated; K70.11 Alcoholic hepatitis with ascites; K70.31 Alcoholic cirrhosis of liver with ascites; K76.6 Portal hypertension; F31.60 Bipolar disorder, current episode mixed, unspecified; R62.7 Adult failure to thrive; Z20.828 Contact with and (suspected) exposure to other viral communicable diseases; Z59.0 Homelessness; Z79.899 Other long term (current) drug therapy; Z68.24 Body mass index [BMI] 24.0-24.9, adult
CPT/HCPCS: 36415; 43239; 49083; 71045; 80048; 80053; 82042; 82140-TC; 82550-TC; 82553-TC; 82607; 82746; 82947-TC; 83010; 83540-TC; 83550-TC; 83615-TC; 83735-TC; 83880; 84100-TC; 84132-TC; 84157-TC; 84439; 84443-TC; 84484; 85025; 85044-TC; 85610-TC; 86886; 86900; 86901; 86920; 87081; 88305; 88312; 88313; 89051-TC; 89060-TC; 93005; 96361; 96365; 97110-GP; 97112-GP; 97163; 97530-GP; 99291; C1729; C1751; C9113; J0610; J0696; J1720; J1956; J2250; J2270; J2354; J2543; J2765; J3010; J3430; J3475; J3480; J3490; J7030; J7040; J7042; J7050; J7060; P9021; P9034; P9046; U0003-CS

== ENCOUNTER 2020-02-02 12:47 | Inpatient (IN) | payer MEDICAID, SELFPAY ==
[~2020-02-02] VITALS: Ht 185.4 cm; Wt 71.7 kg
[2020-02-02 12:55] VITALS: BP_SYST 83
--- NOTE | 2020-02-02 13:28 | NUR ---
Pt moved to bed 01
[2020-02-02 13:39] LABS: CALCIUM 8.7 mg/dL (8.4-11.0); CREATININE 3.48 mg/dL (0.55-1.30); POTASSIUM 3.5 mmol/L (3.5-5.1)
[2020-02-02 13:44] LABS: ALBUMIN 2.5 g/dL (3.4-4.8)
--- NOTE | 2020-02-02 13:47 | NUR ---
Patient was brought in via EMS under a 5150 made by Jayme MELISSA for being gravely disabled. Jayme MELISSA performed a wellness check and found the patient on the floor. The patient states his bed was taken away and that's why he was on the floor. Patient states he wants to be home bec[place]ase [place], he states she also just bought him a red [place]. Patient has no complaints at this time, skin tears on both arms, abdominal distention noted.
--- NOTE | 2020-02-02 13:48 | NUR ---
ER at bedside examining patient.
[2020-02-02 13:50] LABS: TOTAL BILIRUBIN 9.5 mg/dL (0.0-1.0)
[2020-02-02 14:01] LABS: BASOPHILS % (AUTO) 0.2 % (0.0-2.0); EOSINOPHILS % (AUTO) 0.2 % (0.0-4.0); HEMOGLOBIN 9.3 g/dL (14.0-18.0); LYMPHOCYTES % (AUTO) 13.7 % (20.5-51.5); MEAN CORPUSCULAR HEMOGLOBIN 34 pg (27-31); MEAN CORPUSCULAR HGB CONC 33 % (32-36); MEAN CORPUSCULAR VOLUME 101 fL (79.0-98.0); MONOCYTES # (AUTO) 0.8 K/uL (0.0-1.0); MONOCYTES % (AUTO) 10.5 % (1.7-9.3); NEUTROPHILS # (AUTO) 5.6 K/uL (1.8-7.7); NEUTROPHILS % (AUTO) 75.4 % (40.0-70.0); PLATELET COUNT (AUTO) 61 K/uL (130-430); RED BLOOD CELL COUNT(AUTO) 2.76 MIL/uL (4.2-6.2); RED CELL DISTRIBUTION WIDTH 22.5 % (9.0-15.0); WHITE BLOOD COUNT (AUTO) 7.4 K/uL (4.8-10.8)
[2020-02-02 14:12] LABS: CKMB RELATIVE INDEX 5.3 (0.0-2.9); CREATINE KINASE MB 26.1 ng/mL (0-3.6)
[2020-02-02] MEDS ORDERED: NACL 0.9% 1,000 ML IV ONE ×2 (14:30→19:30)
[2020-02-02] MEDS: 0.45% NACL 1,000 ML IV SCH (15:00)
--- NOTE | 2020-02-02 15:02 | NUR ---
Patient will be admitted to care of Dr. Treadwell. Admitted to telemetry unit. Will go to room 105B. Belongings list completed. Complete and up to date summary report printed. SBAR report to be given at bedside with opportunity for questions.
--- NOTE | 2020-02-02 15:14 | NUR ---
ADMISSION NOTE Received patient from ER via julito, received report from ELIZABETH/ RN. Patient admitted with diagnosis of HYPONATREMIA, LIVER FAILURE, PSYCHOSIS. Patient oriented to hospital routine, call light, toileting and safety-patient verbalized understanding.
[2020-02-02 15:31] VITALS: BP_SYST 86
--- NOTE | 2020-02-02 16:00 | NUR ---
Opening Notes Patient is awake, alert and oriented x4. No resp distress noted. Breathing is even and unlabored. Patient denies any pain at this time. IV site on right hand, 22 gauge, intact. NS @ 75 cc/hr, infusing well. Patient is noted with multiple skin tears. Two skin tears on right arm, two skin tears on his left arm. Cleansed with NS, pat dry, applied Hydrogel to wound bed and covered in foam dressing. Patient also has discolorations on bilateral forearms. Patient is noted with dry flaky skin on lower extremities. Patient refused for nurse to see backside. Will ask nurse on next shift to try. Patients stomach is distended, tender. Patient informed nurse that he had a BM yesterday. Patient was instructed proper use of the call light. Patient was able to successfully teach back call light function. All needs met at this time. Safety and fall precautions in place. Bed in lowest position, alarm on, locked. Will continue to monitor.
--- NOTE | 2020-02-02 18:26 | NUR ---
Closing Notes Patient is laying in bed watching TV. BP is being taken intermittently every 5 minutes. No resp distress. Breathing is even and unlabored. Patient denies any pain at this time. IV site on right hand 22 gauge, intact. NS @ 75 ml/hr infusing well. All needs met at this time. Safety and fall precautions in place. Bed in lowest position, alarm on, locked. Will continue to monitor.
--- NOTE | 2020-02-02 18:40 | NUR ---
Low Blood Pressure/IV OUT Patients blood pressure was noted at 90/56. Called Dr Treadwell and obtained a one time order for NS BOLUS x 1 time only. Noted and carried out. IV site of patient came out. Will ask next nurse to restart line. Will continue to monitor.
[2020-02-02 18:47] VITALS: BP_SYST 90
--- NOTE | 2020-02-02 19:30 | NUR ---
Opening Notes Patient is resting in bed. No signs of distress noted. Breathing is even and unlabored. No IV site at this time. Side rails up X 3. Bed is locked in the lowest position with call light within reach.
[2020-02-02 20:00] VITALS: BP_SYST 83
--- NOTE | 2020-02-02 20:15 | NUR ---
IV Insertion 22G to Left upper arm was placed with on attempt. Site was cleansed with antiseptic wipe prior to insertion. IV secured with tape and transparent dressing. IV is patent and flushing well. Patient tolerated well.
--- NOTE | 2020-02-02 21:00 | NUR ---
IV fluids stopped IV to left upper arm is no longer patent. Unable to complete bolus orders at this time. Will reinsert IV and continue bolus. 22G was removed from FAUSTINO. Tip intact. Scant bleeding. Site covered with gauze and secured with tape.
--- NOTE | 2020-02-02 21:59 | NUR ---
CONSULT: CONSULT CALLED FOR DR. MOSELEY I SPOKE WITH SUE CANDELARIO REASON FOR CONSULT: RENAL DZ REQUESTING CONSULT: DR. CALDERON BENZENE WASHER OPERATOR PHONE NUMBER: [phone]
--- NOTE | 2020-02-02 22:00 | NUR ---
IV Insertion 22G to Right upper arm was placed after two attempts. Site was cleansed with antiseptic wipe prior to insertion. IV secured with tape and transparent dressing. IV is patent and flushing well. Patient tolerated well. Bolus orders continued and infusing
--- NOTE | 2020-02-02 22:00 | NUR ---
CONSULT; CONSULT CALLED FOR DR. WANG I SPOKE WITH KATIE CANDELARIO REASON FOR CONSULT: CIRRHOSIS REQUESTING CONSULT: DR. CALDERON [id number] PHONE NUMBER: [phone]
--- NOTE | 2020-02-02 22:06 | NUR ---
CONSULT: CONSULT CALLED FOR DR. PARKS I SPOKE WITH KATIE CANDELARIO REASON FOR CONSULT: PSYCHOSIS REQUESTING CONSULT: DR. CALDERON CONSULT PHONE NUMBER: [phone]
--- NOTE | 2020-02-02 22:09 | NUR ---
SUBASSEMBLIES WIRER: CONSULT CALLED FOR DR. HIRSCH I SPOKE WITH DR. KATIE CANDELARIO REASON FOR CONSULT: ELEVATED TROPONIN REQUESTING CONSULT: DR. CALDERON SUBASSEMBLIES WIRER PHONE NUMBER: [phone]
[2020-02-02] MEDS ORDERED: LORazepam 2 MG/ML VIAL IVP PRN (22:30)
[2020-02-02 23:00] VITALS: BP_SYST 77
--- NOTE | 2020-02-02 23:00 | NUR ---
Bolus Completed BP 77/42, HR 74. Patient is A/Ox4. Breathing is even and unlabored. No signs of distress noted. Will continue to monitor. Charge nurse is aware.
--- NOTE | 2020-02-03 01:00 | NUR ---
RN Rounds Patient is resting in bed. Arousable to verbal stimuli. A/Ox4. No complaints of dizziness, lightheadedness. Breathing is even and unlabored. No signs of distress noted. BP is 85/54. IVF are infusing per orders. Repositioned patient at this time. Patient has no other needs. Bed is locked in the lowest position with call light within reach. Side rails up X 3. Bed alarm is on. Addendum: 02/03/20 at 0216 by Meghan Pandey RN Will continue to monitor. Charge nurse is aware of current BP
--- NOTE | 2020-02-03 03:30 | NUR ---
RN Rounds Patient is resting in bed. Arousable to verbal stimuli. A/Ox4. No complaints of dizziness, lightheadedness. Breathing is even and unlabored. No signs of distress noted. IVF are infusing per orders. Repositioned patient at this time. Patient has no other needs. Bed is locked in the lowest position with call light within reach. Side rails up X 3. Bed alarm is on.
[2020-02-03 04:00] VITALS: BP_SYST 89
[2020-02-03] MEDS: 0.45% NACL 1,000 ML IV SCH ×2 (04:20→08:48)
--- NOTE | 2020-02-03 05:30 | NUR ---
Hygiene Complete linen change at this time and partial bed bath. Repositioned patient at this time. Patient tolerated well. No other needs. No signs of distress noted. Breathing is even and unlabored. Bed is locked in the lowest position with call light within reach. Side rails up X3. Bed alarm is on.
--- NOTE | 2020-02-03 06:41 | NUR ---
Closing Notes Patient is resting in bed. No signs of distress noted. Breathing is even and unlabored. 22G to the right upper arm is patent and IVF per orders. All needs met throughout shift. fall and safety precautions were met during shift. Side rails up X 3. Bed is locked in the lowest position with call light within reach. Telemetry monitoring in place. Will endorse care to dayshift RN
--- NOTE | 2020-02-03 06:54 | NUR ---
Nutrition Update Wilian Scale 13 noted. Pt admitted for Hyponatremia, Liver Failure, Psychosis Diet: Renal Standard BMI: 20.8 kg/m2 RD to follow per nutrition care standards.
[2020-02-03 07:13] LABS: BASOPHILS % (AUTO) 0.3 % (0.0-2.0); EOSINOPHILS # (AUTO) 0.1 K/uL (0.0-0.4); EOSINOPHILS % (AUTO) 2.9 % (0.0-4.0); HEMATOCRIT 22.5 % (36-54); HEMOGLOBIN 7.7 g/dL (14.0-18.0); LYMPHOCYTES % (AUTO) 20.3 % (20.5-51.5); MEAN CORPUSCULAR HEMOGLOBIN 35 pg (27-31); MEAN CORPUSCULAR HGB CONC 34 % (32-36); MEAN CORPUSCULAR VOLUME 101 fL (79.0-98.0); MONOCYTES # (AUTO) 0.6 K/uL (0.0-1.0); MONOCYTES % (AUTO) 11.6 % (1.7-9.3); NEUTROPHILS # (AUTO) 3.2 K/uL (1.8-7.7); NEUTROPHILS % (AUTO) 64.9 % (40.0-70.0); RED BLOOD CELL COUNT(AUTO) 2.23 MIL/uL (4.2-6.2); RED CELL DISTRIBUTION WIDTH 21.9 % (9.0-15.0)
[2020-02-03 07:26] LABS: CALCIUM 7.8 mg/dL (8.4-11.0); CREATININE 3.11 mg/dL (0.55-1.30); POTASSIUM 3.4 mmol/L (3.5-5.1)
[2020-02-03 07:28] LABS: INR 2.4 (0.80-1.20); PROTHROMBIN TIME 23.4 SECS (9.5-12.5)
--- NOTE | 2020-02-03 08:00 | NUR ---
INITIAL NOTES AWAKE IN BED, ORIENTED TO NAME, PLACE AND TIME. NO SHORTNESS OF BREATH ON ROOM AIR. DENIES ANY PAIN. IVF INFUSING WELL. EATING BREAKFAST INDEPENDENTLY. EXPLAINED PLAN OF CARE BUT PATIENT HAS POOR CONCENTRATION. DRESSINGS ON BOTH ARMS INTACT. FALL AND SAFETY CHECKS IN PLACE. CALL LIGHT WITHIN REACH. WILL CONTINUE TO MONITOR.
[2020-02-03 08:09] VITALS: BP_SYST 78
[2020-02-03 08:09] LABS: PLATELET COUNT (AUTO) 42 K/uL (130-430)
--- NOTE | 2020-02-03 08:30 | NUR ---
CRITICAL RESULT PAGED DR. CALDERON REGARDING LOW PLATELET RESULT. HE CALLED BACK AND ORDERED TO MAKE A CONSULT WITH DR. TADEO.
[2020-02-03] MEDS: ARIPiprazole 5 MG TAB PO SCH (08:45)
--- NOTE | 2020-02-03 08:56 | NUR ---
Hemo consult called: for Dr. Chang, regarding low platelets, ordered by Dr. Treadwell, spoke with Xavier.
[2020-02-03] MEDS ORDERED: RIFAXIMIN 550 MG TABLET PO ONE (09:00)
--- NOTE | 2020-02-03 09:12 | NUR ---
MED PASS PATIENT WAS ABLE TO TAKE HIS ORAL MEDICATIONS WELL. EDUCATED ON ABILIFY BUT PATIENT CANNOT SEEM TO CONCENTRATE. SAFETY ENSURED. WILL MONITOR.
[2020-02-03] MEDS: PHYTONADIONE 10 MG/ML AMP SUBCUT SCH (10:15)
--- NOTE | 2020-02-03 10:15 | NUR ---
REFUSED TURNING; MD ROUNDS ATTEMPTED TO REPOSITION PATIENT AT THIS TIME BUT REFUSED. DR. TADEO EXAMINED PATIENT AT BEDSIDE.
[2020-02-03] MEDS ORDERED: PHYTONADIONE 10 MG/ML AMP SUBCUT ONE (11:45)
--- NOTE | 2020-02-03 12:00 | NUR ---
ROUNDS RESTING IN BED, NO SIGN OF DISTRESS. REMINDED PATIENT ABOUT NEEDED URINE AND STOOL SAMPLE, PATIENT AGREED. NO OTHER COMPLAINS AT THIS TIME. EATS LUNCH INDEPENDENTLY. MINIMAL HELP NEEDED WHEN REPOSITIONING. ENSURED SAFETY. WILL MONITOR.
[2020-02-03 12:42] VITALS: BP_SYST 98
--- NOTE | 2020-02-03 13:00 | NUR ---
URINE SAMPLE URINE SAMPLE COLLECTED AND SENT TO LAB.
[2020-02-03 13:01] LABS: BILIRUBIN,URINE NEGATIVE (NEGATIVE); BLOOD, URINE 3+ (NEGATIVE); CLARITY/URINE SL CLOUDY (CLEAR); COLOR,URINE YELLOW (YELLOW); GLUCOSE,URINE NEGATIVE (NEGATIVE); KETONES,URINE NEGATIVE (NEGATIVE); LEUKOCYTE ESTERASE ,URINE NEGATIVE (NEGATIVE); NITRITE, URINE NEGATIVE (NEGATIVE); PH,URINE 5.5 (5.0-8.0); PROTEIN URINE NEGATIVE (NEGATIVE); UROBILINOGEN,URINE 0.2 (0.2-1.0)
[2020-02-03 13:09] LABS: BACTERIA,URINE FEW /HPF (None Seen); RBC,URINE 20-50 /HPF (0-3); WBC,URINE 0-3 /HPF (0-3)
--- NOTE | 2020-02-03 15:30 | NUR ---
FRESH FROZEN PLASMA BLOOD HAS BEEN TYPED AND CROSSMATCHED. BLOOD SENT FROM BLOOD BANK. DOUBLE CHECKED WITH MS. AIDEN RN AT BEDSIDE. ALL INFORMATION MATCHED. PATIENT EDUCATED OF TRANSFUSION REACTIONS AND AWARE THAT IF SHORTNESS OF BREATH, ITCHINESS, FLUSHING OR ANY SUDDEN SYMPTOM PRESENTS, PATIENT SHOULD NOTIFY NURSE. VERBALIZED UNDERSTANDING. PRE-TRANSFUSION VITAL SIGNS TAKEN. WILL STAY AT BEDSIDE FOR THE FIRST 15 MINUTES OF TRANSFUSION. WILL CLOSELY MONITOR PER PROTOCOL. Addendum: 02/03/20 at 1758 by Alyssa Coffey RN WRONG TIME
--- NOTE | 2020-02-03 15:30 | NUR ---
WOUND CARE PATIENT HAS MULTIPLE BRUISES AND SKIN TEARS ON BOTH ARMS. WOUND CARE DONE. ENSURED SAFETY. CALL LIGHT WITHIN REACH. WILL MONITOR.
--- NOTE | 2020-02-03 16:31 | NUR ---
CONSENT FOR TRANSFUSION PATIENT SIGNED THE CONSENT FOR FRESH FROZEN PLASMA.
[2020-02-03 16:56] VITALS: BP_SYST 81
--- NOTE | 2020-02-03 17:30 | NUR ---
FRESH FROZEN PLASMA BLOOD HAS BEEN TYPED AND CROSSMATCHED. BLOOD SENT FROM BLOOD BANK. DOUBLE CHECKED WITH MS. AIDEN RN AT BEDSIDE. ALL INFORMATION MATCHED. PATIENT EDUCATED OF TRANSFUSION REACTIONS AND AWARE THAT IF SHORTNESS OF BREATH, ITCHINESS, FLUSHING OR ANY SUDDEN SYMPTOM PRESENTS, PATIENT SHOULD NOTIFY NURSE. VERBALIZED UNDERSTANDING. PRE-TRANSFUSION VITAL SIGNS TAKEN. WILL STAY AT BEDSIDE FOR THE FIRST 15 MINUTES OF TRANSFUSION. WILL CLOSELY MONITOR PER PROTOCOL.
[2020-02-03] MEDS ORDERED: POTASSIUM CHLORIDE 20 MEQ/PKT PACKET PO ONE (18:00)
[2020-02-03] MEDS ORDERED: SODIUM BICARBONATE 650 MG TABLET PO ONE (18:15)
--- NOTE | 2020-02-03 18:55 | NUR ---
CLOSING NOTES RESTING IN BED. NO SIGN OF DISTRESS. PATIENT IS STILL RECEIVING FRESH FROZEN PLASMA. TOLERATING WELL. ALL NEEDS MET. ORAL MEDICATIONS GIVEN. FALL AND SAFETY CHECKS DONE. CALL LIGHT WITHIN REACH. WILL ENDORSE TO NIGHT NURSE.
[2020-02-03 20:00] VITALS: BP_SYST 70
[2020-02-03] MEDS: ALBUMIN HUMAN 25% 50 ML IV SCH (20:28)
[2020-02-03] MEDS: RIFAXIMIN 550 MG TABLET PO SCH (20:28)
[2020-02-04] VITALS: BP_SYST 81
[2020-02-04] MEDS: ALBUMIN HUMAN 25% 50 ML IV SCH ×5 (00:10→23:44)
--- NOTE | 2020-02-04 02:14 | NUR ---
Plasma complete. No reactions noted. Will continue to monitor.
[2020-02-04 04:00] VITALS: BP_SYST 90
[2020-02-04] MEDS: 0.45% NACL 1,000 ML IV SCH ×3 (04:15→21:20)
[2020-02-04 07:36] LABS: BASOPHILS % (AUTO) 0.2 % (0.0-2.0); EOSINOPHILS # (AUTO) 0.1 K/uL (0.0-0.4); EOSINOPHILS % (AUTO) 3.4 % (0.0-4.0); LYMPHOCYTES # (AUTO) 0.6 K/uL (1.0-5.5); LYMPHOCYTES % (AUTO) 17.1 % (20.5-51.5); MEAN CORPUSCULAR HEMOGLOBIN 35 pg (27-31); MEAN CORPUSCULAR HGB CONC 35 % (32-36); MEAN CORPUSCULAR VOLUME 100 fL (79.0-98.0); MONOCYTES # (AUTO) 0.5 K/uL (0.0-1.0); MONOCYTES % (AUTO) 13.2 % (1.7-9.3); NEUTROPHILS # (AUTO) 2.3 K/uL (1.8-7.7); NEUTROPHILS % (AUTO) 66.1 % (40.0-70.0); RED CELL DISTRIBUTION WIDTH 22.1 % (9.0-15.0); WHITE BLOOD COUNT (AUTO) 3.5 K/uL (4.8-10.8)
[2020-02-04 07:59] LABS: RED BLOOD CELL COUNT(AUTO) 1.88 MIL/uL (4.2-6.2)
[2020-02-04 08:00] VITALS: BP_SYST 89
--- NOTE | 2020-02-04 08:00 | NUR ---
INITIAL NOTES AWAKE IN BED, ORIENTED TO NAME AND PLACE. REPORTED THAT HE WAS TALKING TO A ROOMMATE LAST NIGHT, BUT PATIENT IS ALONE IN THE ROOM. NO SHORTNESS OF BREATH ON ROOM AIR. DENIES ANY PAIN. KEPT ON NPO. ENSURED SAFETY. CALL LIGHT WITHIN REACH. WILL CONTINUE TO MONITOR.
[2020-02-04 08:01] LABS: HEMATOCRIT 18.7 % (36-54); HEMOGLOBIN 6.5 g/dL (14.0-18.0); INR 1.6 (0.80-1.20); PLATELET COUNT (AUTO) 35 K/uL (130-430); PROTHROMBIN TIME 16.1 SECS (9.5-12.5)
[2020-02-04 08:02] LABS: TOTAL IRON BIND. CAPACITY 178 ug/dL (250-450)
[2020-02-04 08:06] LABS: ALBUMIN 2.6 g/dL (3.4-4.8); CALCIUM 8.1 mg/dL (8.4-11.0); CREATININE 2.75 mg/dL (0.55-1.30); PHOSPHORUS 4.3 mg/dL (2.7-4.5); POTASSIUM 3.5 mmol/L (3.5-5.1); TOTAL BILIRUBIN 7.1 mg/dL (0.0-1.0)
--- NOTE | 2020-02-04 08:11 | NUR ---
PAGED PAGED KASI MARX AT [phone] SPOKE WITH ROSALINA.
[2020-02-04 08:22] LABS: URIC ACID 7.8 mg/dL (2.4-7.0)
[2020-02-04] MEDS: SODIUM BICARBONATE 650 MG TABLET PO SCH ×2 (09:59→21:19)
[2020-02-04] MEDS: PHYTONADIONE 10 MG/ML AMP SUBCUT SCH (10:00)
[2020-02-04] MEDS: ARIPiprazole 5 MG TAB PO SCH (10:00)
[2020-02-04] MEDS: RIFAXIMIN 550 MG TABLET PO SCH ×2 (10:00→21:19)
--- NOTE | 2020-02-04 10:00 | NUR ---
MED PASS PATIENT WAS ABLE TO TAKE HIS MEDICATIONS WELL. EXPLAINED THAT HE HAS AN UPCOMING BLOOD TRANSFUSION. PATIENT VERBALIZED THAT HE IS AWARE OF WHAT TO REPORT SINCE HE HAS BEEN RECEIVING TRANSFUSIONS IN THE PAST. TOOK HIS ORAL MEDICATIONS WELL. ENSURED SAFETY.
--- NOTE | 2020-02-04 10:22 | NUR ---
CYNTHIA CHAN SPOKE WITH HIS EXCHANGE.
[2020-02-04] MEDS ORDERED: FOLIC ACID 1 MG TABLET PO ONE (10:45)
[2020-02-04] MEDS ORDERED: THIAMINE HCL 100 MG TABLET PO ONE (10:45)
--- NOTE | 2020-02-04 10:45 | NUR ---
ATTENDING MD DR CALDERON WAS CALLED DIRECTLY RE: PICC LINE ORDER. LEFT A VOICE MESSAGE ON HIS CP
--- NOTE | 2020-02-04 11:00 | NUR ---
IV OUT IV WAS ACCIDENTALLY PULLED OUT BY PATIENT. ASSESSED SITE, NO ACTIVE BLEEDING. ATTEMPTED TWICE BUT WAS UNABLE TO SECURE A LINE. PAGED DR. CALDERON FOR A POSSIBLE PICC LINE INSERTION.
--- NOTE | 2020-02-04 11:40 | NUR ---
IV INSERTION MS. TIANA RN WAS ABLE TO SECURE AN IV LINE ON RIGHT UPPER ARM. SECURED WELL. PATIENT EDUCATION PROVIDED, VERBALIZED UNDERSTANDING.
--- NOTE | 2020-02-04 11:50 | NUR ---
BLOOD TRANSFUSION BLOOD HAS BEEN TYPED AND CROSSMATCHED. BLOOD SENT FROM BLOOD BANK. DOUBLE CHECKED WITH MS. KELSEY RN AT BEDSIDE. ALL INFORMATION MATCHED. PATIENT EDUCATED OF TRANSFUSION REACTIONS AND TO REPORT SHORTNESS OF BREATH, ITCHINESS, FLUSHING OR ANY SUDDEN SYMPTOM OCCURS. VERBALIZED UNDERSTANDING. PRE-TRANSFUSION VITAL SIGNS TAKEN. WILL STAY AT BEDSIDE FOR THE FIRST 15 MINUTES OF TRANSFUSION. WILL CLOSELY MONITOR PER PROTOCOL.
[2020-02-04 12:26] VITALS: BP_SYST 82
--- NOTE | 2020-02-04 14:00 | NUR ---
ABDOMINAL ULTRASOUND STAFF AT BEDSIDE FOR ABDOMINAL ULTRASOUND. BLOOD TRANSFUSION STILL ONGOING. PATIENT IS TOLERATING IT WELL. ENSURED SAFETY. WILL MONITOR.
--- NOTE | 2020-02-04 15:20 | NUR ---
BLOOD TRANSFUSION ENDED. PATIENT WAS ABLE TO TOLERATE FIRST BAG OF PACKED RED BLOOD CELL. VITAL SIGNS STABLE. NO REPORT OF ADVERSE REACTIONS FROM PATIENT. ALBUMIN ADMINISTERED IV.
--- NOTE | 2020-02-04 16:04 | NUR ---
Dietitian Recommendations *Resume oral diet when medically feasible *Consider ONS BID to supplement PO intake Please see Nutrition Assessment for further details. LT, RD
[2020-02-04 16:23] VITALS: BP_SYST 88
--- NOTE | 2020-02-04 16:30 | NUR ---
REFUSED WOUND CARE PATIENT REFUSED TO BE CHANGED AND REFUSED WOUND CARE. EDUCATED PATIENT BUT HE STILL REFUSED.
--- NOTE | 2020-02-04 18:50 | NUR ---
CLOSING NOTES RESTING IN BED, NO SIGN OF DISTRESS. IVF INFUSING WELL. ALBUMIN FOR 1800 NOT GIVEN BECAUSE THE LAST ONE WAS GIVEN AT 1520. PATIENT FINALLY AGREED TO BE CHANGED. HE ALSO SIGNED CONSENT FOR PICC LINE INSERTION. ALL NEEDS MET. STILL REFUSED WOUND CARE. FALL AND SAFETY CHECKS DONE. CALL LIGHT WITHIN REACH. WILL ENDORSE TO NIGHT NURSE.
[2020-02-04 20:00] VITALS: BP_SYST 94
--- NOTE | 2020-02-04 20:00 | NUR ---
INITIAL NOTES: PT IS AWAKE , PICC LINE NURSE AT BEDSIDE COMPLETED INSERTION OF PICC LINE , PICC LINE TO R UPPER ARM DOUBLE LUMEN ; PER PICC LINE NURSE PICC LINE IN PLACE AND OK TO USE ,WILL GET ORDER FROM MD . VITALS ARE STABLE ; BP IS 94/58, PT REFUSED TO CHECK HIS BACK AND DO ASSESSMENT ; NOTICED ABDOMEN IS VERY DISTENDED ; PT HAS URINAL AT BEDSIDE ,ENCOURAGED PT TO CALL WHEN HE NEEDS TO VOID AND INFORMED HIM ABOUT THE ORDER FOR URINE COLLECTION AND STOOL COLLECTION ; ALSO INFORMED PT ABOUT THE CRYO AND PRBC INFUSION TONIGHT ; PLAN OF CARE DISCUSSES ; PT HAS BIPOLAR SO NOT LISTENING TO WHAT RN WAS SAYING . WILL CONTINUE TO MONITOR PT . SR ON THE MONITOR ; BED IN LOW AND LOCK POSITION , CALL GIRARD IN REACH . ENCOURAGED PT TO CALL FOR ANY HELP . PT HAS ANOTHER IV TO THE R UPPER ARM 18 G , IV FLUSHED WELL ; WILL DC LATER
--- NOTE | 2020-02-04 20:35 | NUR ---
PICC LINE DRESSING : NOTICED THAT SMALL AMOUNT OF BLOOD IS OOZING FROM THE PICC LINE INSERTION SITE ; PRESSURE APPLIED FOR FEW MIN , NO ACTIVE BLEEDING NOW ; DRESSING CHANGED IN STERILE TECHNIQUE . PT IS COMFORTABLE .
--- NOTE | 2020-02-04 20:40 | NUR ---
BT INITIATION: Signed consent in the chart . Blood has been type and crossmatched. Blood sent from blood bank. Information on unit of blood checked against patient wristband at bedside by primary RN and Lincoln Christopher All information matches. Patient informed of potential complications associated with blood transfusion.Informed of possible transfusion reaction symptoms. Aware of need to notify nurse at once of itching, shortness of breath, flushing, feeling of impending doom, or other symptoms not previously present. Vital signs taken prior to initiation of transfusion. RN will remain with patient for first 15 minutes of transfusion at which time vital signs will be re-assessed.
--- NOTE | 2020-02-04 20:55 | NUR ---
15 MIN AFTER INITIATION OF BLOOD : PT DENIED ANY TRANSFUSION REACTIONS ; NO COMPLAINTS AT THIS TIME ; BP IS 95/59 , HR 70 /MIN; NOT IN ANY ACUTE DISTRESS ; WILL CONTINUE TO MONITOR .
--- NOTE | 2020-02-04 21:20 | NUR ---
MEDICATION: DUE MEDS GIVEN PER ORDER; PT IS ABLE TO SWALLOW WELL ;NO S/S OF ANY ASPIRATION NOTICED ; BLOOD IS INFUSING WELL ; WILL CONTINUE TO MONITOR PT . Addendum: 02/05/20 at 0316 by Rosana Farrar RN PAGED : PT WAS C/O PAIN , PTS BP IS ON LOW 90S ; DR CALDERON CALLED AND TALKED WITH , NO ORDERS RECEIVED FOR PAIN , SINCE PTS BP IS LOW ; STATED TO GIVE ALBUMIN 200 ML AND TO GIVE MORPHINE IF NEEDED , INFORMED MD THAT PT SI ON ALBUMIN Q6HRS AND PT IS BLOOD TRANSFUSION AT THIS TIME . INFORMED PT , PT STATED "THATS OK ".
--- NOTE | 2020-02-04 22:30 | NUR ---
RN ROUNDS: NO S/S OF ANY DISTRESS NOTICED PT IS COMFORTABLE .
--- NOTE | 2020-02-04 23:35 | NUR ---
BLOOD TRANSFUSION OVER: 2 ND UNIT OF BLOOD TRANSFUSION IS OVER BP IS 102 /66 HR 69 SAT 97% ; PT IS COMFORTABLE ; DENIED ANY TRANSFUSION REACTION ; WILL CONTINUE TO MONITOR PT .
--- NOTE | 2020-02-04 23:45 | NUR ---
ALBUMIN: PER MD ORDER , ALBUMIN STARTED ; ONCE ALBUMIN FINISH , WILL START THE PT ON CRYO.
[2020-02-05 00:39] VITALS: BP_SYST 98
--- NOTE | 2020-02-05 01:30 | NUR ---
CRYOPRECIPITATE : Signed consent in the chart . Received cryo from lab after verification ; Information on unit of blood checked against patient wristband at bedside by charge nurse Lincoln and primary RN . All information matches. Patient informed of potential complications associated with transfusion. Informed of possible transfusion reaction symptoms. Aware of need to notify nurse at once of itching, shortness of breath, flushing, feeling of impending doom, or other symptoms not previously present. Vital signs taken within 5 minutes prior to initiation of transfusion. RN will remain with patient for first 15 minutes of transfusion at which time vital signs will be re-assessed.
--- NOTE | 2020-02-05 01:45 | NUR ---
15 MIN; 15 MIN AFTER CRYO STARTED PT DENIED ANY S/S OF TRANSFUSION REACTION ; BP 91/60 ; WILL CONTINUE TO MONITOR PT .
--- NOTE | 2020-02-05 02:15 | NUR ---
CRYO FINISHED : CRYOPRECIPITATION IS FINISHED ; PT IS COMFORTABLE ; DENIED CHEMA TRANSFUSION REACTION ; WILL CONTINUE TO MONITOR
--- NOTE | 2020-02-05 03:34 | NUR ---
RN ROUNDS: PT IS COMFORTABLE ; SLEEPING ON AND OFF ; NOT IN ANY ACUTE DISTRESS; WILL MONITOR PT .
[2020-02-05 05:00] VITALS: BP_SYST 103
--- NOTE | 2020-02-05 05:00 | NUR ---
SPONGE BATH: PT REFUSED SPONGE BATH ; INFORMED PT THAT PT IS INCONTINENT WITH URINE; STILL PT REFUSED TO BE CHANGE ; EDUCATED PT ; PT DIDNT LIKE ; HE STARTED GETTING MAD AT RN AND PHOTOGRAPHIC DEVELOPER AND PRINTER ; WHILE TALKING TO THE PT DR PARKS MADE ROUNDS ; AND SAW THE PT IS REFUSING TO BE CLEAN ; ALSO TALKED TO PT , SINCE PT IS VERY INCONTINENT , RN AND PHOTOGRAPHIC DEVELOPER AND PRINTER CLEANED PT EVEN THOUGH PT IS REFUSING , LINEN AND GOWN CHANGED ; PT RFUSED DRESSING CHANGE TO ALEJANDRA ARMS AGAIN ; NOTICED PT HAS A BIG BRUISE -( RED AND PURPLE DISCOLORATION)TO THE R LATERAL ABDOMEN , PHOTOGRAPHIC DEVELOPER AND PRINTER STATED SHE HAD THIS PT 2 DAYS AGO AND BRUISE WAS THERE AT THAT TIME TOO .PT TURNED AND REPOSITIONED ; NOTICED DRESSING TO THE PICCLINE IS WITH SMALL AMOUNT OF BLOOD , PT REFUSED TO CHANGE DRESSING APPLIED PRESSURE AND PRESSURE DRESSING ON TOPOF ACUTAL DRESSING . WILL MONITOR PT .
[2020-02-05] MEDS ORDERED: ZOLPIDEM TARTRATE 5 MG TABLET PO PRN (05:15)
[2020-02-05] MEDS: 0.45% NACL 1,000 ML IV SCH ×2 (05:46→23:04)
[2020-02-05] MEDS: ALBUMIN HUMAN 25% 50 ML IV SCH ×3 (05:46→17:54)
--- NOTE | 2020-02-05 07:29 | NUR ---
CLOSING NOTES: PT IS SLEEPING, RESPIRATION IS EVEN AND NON LABORED ;REPORT GIVEN TO RN AT BEDSIDE ; PT IS COMFORTABLE ; NOT IN ANY ACUTE DISTRESS; ALL NEEDS ATTENDED.
--- NOTE | 2020-02-05 07:40 | NUR ---
Initial notes- In bed, wants to sleep, refuses vital signs and assessment at this time.
[2020-02-05 07:48] LABS: BASOPHILS % (AUTO) 1.3 % (0.0-2.0); EOSINOPHILS # (AUTO) 0.1 K/uL (0.0-0.4); EOSINOPHILS % (AUTO) 4.1 % (0.0-4.0); HEMOGLOBIN 9.2 g/dL (14.0-18.0); LYMPHOCYTES # (AUTO) 0.5 K/uL (1.0-5.5); LYMPHOCYTES % (AUTO) 15.1 % (20.5-51.5); MEAN CORPUSCULAR HEMOGLOBIN 33 pg (27-31); MEAN CORPUSCULAR HGB CONC 34 % (32-36); MEAN CORPUSCULAR VOLUME 98 fL (79.0-98.0); MONOCYTES # (AUTO) 0.5 K/uL (0.0-1.0); MONOCYTES % (AUTO) 14.3 % (1.7-9.3); NEUTROPHILS # (AUTO) 2.2 K/uL (1.8-7.7); NEUTROPHILS % (AUTO) 65.2 % (40.0-70.0); RED BLOOD CELL COUNT(AUTO) 2.77 MIL/uL (4.2-6.2); RED CELL DISTRIBUTION WIDTH 20.3 % (9.0-15.0); WHITE BLOOD COUNT (AUTO) 3.3 K/uL (4.8-10.8)
[2020-02-05 07:58] LABS: CALCIUM 8.2 mg/dL (8.4-11.0); CREATININE 2.19 mg/dL (0.55-1.30); POTASSIUM 3.2 mmol/L (3.5-5.1)
--- NOTE | 2020-02-05 08:04 | NUR ---
notes- eating breakfast refuses to fix his monitor at this time.
[2020-02-05 08:13] LABS: INR 1.6 (0.80-1.20); PROTHROMBIN TIME 15.8 SECS (9.5-12.5)
[2020-02-05 08:28] LABS: PLATELET COUNT (AUTO) 32 K/uL (130-430)
[2020-02-05] MEDS: ARIPiprazole 5 MG TAB PO SCH (08:50)
[2020-02-05] MEDS: SODIUM BICARBONATE 650 MG TABLET PO SCH ×2 (08:50→20:21)
[2020-02-05] MEDS: FOLIC ACID 1 MG TABLET PO SCH (08:50)
[2020-02-05] MEDS: RIFAXIMIN 550 MG TABLET PO SCH ×2 (08:50→20:21)
[2020-02-05] MEDS: PHYTONADIONE 10 MG/ML AMP SUBCUT SCH (08:51)
[2020-02-05] MEDS: THIAMINE HCL 100 MG TABLET PO SCH (08:51)
[2020-02-05 09:08] VITALS: BP_SYST 85
--- NOTE | 2020-02-05 09:30 | NUR ---
Notes- take all his morning meds, refused to be bothered and just wants to sleep for now.
[2020-02-05 12:41] VITALS: BP_SYST 82
--- NOTE | 2020-02-05 15:29 | NUR ---
Blood- Cryoprecipitate is not ready yet. blood bank will inform us once blood is ready.
--- NOTE | 2020-02-05 15:32 | NUR ---
Echo Technician: Met with pt. to conduct a DCPA and Social Work interview. CONVERTIBLE TOP INSTALLER met with pt. bedside. During interview, he made eye contact, answered questions appropriately as they pertained to the suject. Pt. stated he lives alone with a dog at his apt. He stated he pays $24 per month as he is on a Home Service program through [employer]. He use to have a caregiver but that person was exposed to Covid. Pt. stated he no longer has a caregiver who comes to his home to help out. Pt. could not recall any names or phone numbers of people who are in his support eek, his caregiver, nor any phone numbers for his therapist. Pt. stated he does have a counselor and has used [facility] in the past. Pt. denied being suicidal and stated his plan is to get back on medication for a being Bi-polar. CONVERTIBLE TOP INSTALLER spoke to his Rn, Darcy Bishop who stated pt. is not getting a procedure done on his abdomen as she does not have an order as pt. was stating. CONVERTIBLE TOP INSTALLER will remain available as needed. Addendum: 02/05/20 at 1609 by Staci Barney CONVERTIBLE TOP INSTALLER Echo Technician: follow up CONVERTIBLE TOP INSTALLER had given pt. some resources to find a PCP, a Mental Health provider and some substance abuse resources. CONVERTIBLE TOP INSTALLER called [facility] and asked for Thao, . DULCE MARIA was told Thao was out today and was transferred over to Marni her assistant general manager who stated Thao is a meds. provider. Pt. indeed is getting services at this facility and has a treatment team. Vita is the case reviewer, but is also out today. CONVERTIBLE TOP INSTALLER shared with Marni her concerns that pt. stated he does not have a support system. He stated he has not been taking meds. or seeing a therapist for his Bipolar Dx. and as per pt. his caregiver is no longer coming to see him as they have been exposed to the Covid. Pt was concerned that no one is looking after his dog since he has been in the hospital since 02/02/20. Marni stated she will leave a message with Yue and the treatment team. CONVERTIBLE TOP INSTALLER called, trying to reach pts. cousin, Deann Matias at [phone]. Noone was home. CONVERTIBLE TOP INSTALLER left a message.
[2020-02-05] MEDS ORDERED: KCL 20 mEq in 100 mL (PREMIX) 100 ML IV ONE (16:45)
[2020-02-05] MEDS ORDERED: MIDODRINE HCL 5 MG TABLET (PROAMATINE) PO ONE (16:45)
[2020-02-05] MEDS ORDERED: SODIUM BICARBONATE 8.4% JECT 50 MEQ/50 ML SYRINGE IVP ONE (16:45)
[2020-02-05 16:48] VITALS: BP_SYST 86
--- NOTE | 2020-02-05 18:26 | NUR ---
Notes- resting in bed, was seen by Dr. Monaco with new orders. also seen by Dr. Treadwell. In bed, resting at this time. no distress noted. Will endorse.
[2020-02-05 19:18] LABS: URINE SODIUM, RANDOM 4 mmol/L (40-220)
--- NOTE | 2020-02-05 19:30 | NUR ---
ROUNDS PATIENT RESTING COMFORTABLY IN BED, NOT IN DISTRESS, VITALS STABLE. DENIES ANY PAIN AND DISCOMFORT AT THIS TIME. ASSESSMENT DONE AND DOCUEMNTED. SEE FLOWSHEET. NEEDS ATTENDED TO. SAFETY AND FALL MEASURES IN PLACED. BED ALARM ON. CALL LIGHT PLACED WITHIN REACH.
[2020-02-05 20:00] VITALS: BP_SYST 88
[2020-02-05] MEDS: MIDODRINE HCL 5 MG TABLET (PROAMATINE) PO SCH (20:21)
--- NOTE | 2020-02-05 21:20 | NUR ---
NOTES CRYOPRICIPITATE TRANSFUSION STARTED ORDERED, VITALS STABLE, NO REACTION NOTED. WILL CONTINUE TO MONITOR.
[2020-02-06] VITALS: BP_SYST 100
--- NOTE | 2020-02-06 00:13 | NUR ---
PATIENT RESTING: Patient resting quietly. No acute distress noted. Vital signs within normal range.
[2020-02-06] MEDS: 0.45% NACL 1,000 ML IV SCH ×3 (00:33→21:41)
--- NOTE | 2020-02-06 02:13 | NUR ---
ROUNDS PATIENT ASLEEP, RESPIRATIONS EVEN AND UNLABORED, NO SOB NOR PAIN AND DISCOMFORT NOTED. WILL CONTINUE TO MONITOR.
--- NOTE | 2020-02-06 04:16 | NUR ---
ROUNDS PATIENT ASLEEP, RESPIRATIONS EVEN AND UNLABORED, WILL CONTINUE TO MONITOR.
[2020-02-06 06:31] LABS: CALCIUM 8.4 mg/dL (8.4-11.0); CREATININE 1.77 mg/dL (0.55-1.30); POTASSIUM 3.4 mmol/L (3.5-5.1)
--- NOTE | 2020-02-06 06:41 | NUR ---
CLOSING NOTES PATIENT ASLEEP AT THIS TIME, REFUSED TO BE BOTHERED AT THIS TIME FOR PARTIAL BED BATH AND LINEN CHANGE SINCE HE WANTS TO GO SLEEP. SAFETY AND FALL MEASURES MAINTAINED. BED ALARM ON. CALL LIGHT PLACED WITHIN REACH.
--- NOTE | 2020-02-06 07:21 | NUR ---
Opening Note received bedside SBAR report from film processing shift supervisor RN, patient resting in bed, respirations even and unlabored on room air, no acute distress noted, patient denies any pain, room close to nurses station, educated patient on use of call light and asked to call for assistance, patient verbalized understanding, call light in reach, bed in low and locked position, bed alarm on.
[2020-02-06 07:26] LABS: BASOPHILS % (AUTO) 0.1 % (0.0-2.0); EOSINOPHILS # (AUTO) 0.1 K/uL (0.0-0.4); EOSINOPHILS % (AUTO) 3.2 % (0.0-4.0); HEMOGLOBIN 8.9 g/dL (14.0-18.0); LYMPHOCYTES # (AUTO) 0.5 K/uL (1.0-5.5); LYMPHOCYTES % (AUTO) 11.2 % (20.5-51.5); MEAN CORPUSCULAR HEMOGLOBIN 34 pg (27-31); MEAN CORPUSCULAR HGB CONC 34 % (32-36); MEAN CORPUSCULAR VOLUME 98 fL (79.0-98.0); MONOCYTES # (AUTO) 0.8 K/uL (0.0-1.0); MONOCYTES % (AUTO) 19.9 % (1.7-9.3); NEUTROPHILS # (AUTO) 2.8 K/uL (1.8-7.7); NEUTROPHILS % (AUTO) 65.6 % (40.0-70.0); RED BLOOD CELL COUNT(AUTO) 2.65 MIL/uL (4.2-6.2); RED CELL DISTRIBUTION WIDTH 20.8 % (9.0-15.0); WHITE BLOOD COUNT (AUTO) 4.2 K/uL (4.8-10.8)
[2020-02-06 07:34] LABS: PLATELET COUNT (AUTO) 34 K/uL (130-430)
[2020-02-06 07:36] LABS: TOTAL BILIRUBIN 10.1 mg/dL (0.0-1.0)
[2020-02-06 08:00] VITALS: BP_SYST 102
--- NOTE | 2020-02-06 09:02 | NUR ---
PAGED DR TADEO FOR CRITICAL LABS
[2020-02-06 09:03] LABS: INR 1.5 (0.80-1.20); PROTHROMBIN TIME 14.9 SECS (9.5-12.5)
--- NOTE | 2020-02-06 09:05 | NUR ---
Critical Lab spoke with Dr. Chang, informed him of critical lab platelets 34, per Dr. Chang no transfusion needed at this time due to platelets being stable, no new orders received.
[2020-02-06] MEDS: FOLIC ACID 1 MG TABLET PO SCH (09:26)
[2020-02-06] MEDS: MIDODRINE HCL 5 MG TABLET (PROAMATINE) PO SCH ×3 (09:26→20:18)
[2020-02-06] MEDS: ARIPiprazole 5 MG TAB PO SCH (09:26)
[2020-02-06] MEDS: THIAMINE HCL 100 MG TABLET PO SCH (09:26)
[2020-02-06] MEDS: PHYTONADIONE 10 MG/ML AMP SUBCUT SCH (09:27)
[2020-02-06] MEDS: SODIUM BICARBONATE 650 MG TABLET PO SCH ×2 (09:27→20:18)
[2020-02-06] MEDS: RIFAXIMIN 550 MG TABLET PO SCH ×2 (09:27→20:18)
--- NOTE | 2020-02-06 11:45 | NUR ---
Lunch patient able to reposition self in bed, patient sitting up eating lunch, tolerating well, patient denies any nausea or vomiting, patient denies any pain.
[2020-02-06 11:59] LABS: CREATININE, URINE 58.8 mg/dL; MICROALBUMIN URINE RANDOM 26.4 ug/ml (NOT ESTABLISHED)
[2020-02-06 12:00] VITALS: BP_SYST 99
--- NOTE | 2020-02-06 12:51 | NUR ---
Refused Wound Care/Linen Change dried blood noted under transparent dressing of PICC line, educated patient on purpose and procedure for PICC line dressing change, patient verbalized understanding, drainage noted to bilateral upper arm dressings, educated patient on purpose and procedure for wound care, patient verbalized understanding, noted that linen is soiled, patient refusing to have PICC line dressing changed, wound care completed, or linen changed at this time, patient states "I just want to watch this movie", patient sitting up in bed watching TV.
--- NOTE | 2020-02-06 14:20 | NUR ---
Spoke with Physician spoke with Dr. Treadwell, informed him of patient complaint of pain 6/10 generalized, new medication orders received, verified with read back.
[2020-02-06 14:45] VITALS: BP_SYST 104
[2020-02-06] MEDS: traMADol HCL HCL 50 MG TABLET (ULTRAM) PO PRN ×2 (14:47→20:18)
--- NOTE | 2020-02-06 14:53 | NUR ---
Physician Rounds Dr. Chang at bedside examining patient.
[2020-02-06] MEDS ORDERED: POTASSIUM CHLORIDE 20 MEQ/PKT PACKET PO ONE (15:45)
--- NOTE | 2020-02-06 16:28 | NUR ---
Wound Care/PICC line dressing change educated patient on purpose and procedure for wound care and PICC line dressing change, patient verbalized understanding and is agreeable for wound care and PICC line dressing change, wound care completed, patient tolerated well, patient reports pain was controlled during and after wound care, see MST shift assessment for wound care, PICC line dressing change completed to right upper arm, sterile technique observed, biopatch in place, covered with transparent dressing, dual caps placed on ports, patient tolerated well. Addendum: 02/06/20 at 1634 by Lynda Fung RN patient refusing linen change at this time, patients states "I'm going to nap for a little bit".
[2020-02-06 16:35] VITALS: BP_SYST 100
--- NOTE | 2020-02-06 17:56 | NUR ---
RN Rounds patient resting in bed, respirations even and unlabored on room air, no acute distress noted, patient reports pain is controlled at this time.
--- NOTE | 2020-02-06 19:03 | NUR ---
Closing Note bedside SBAR report given to receiving RN, patient resting in bed, respirations even and unlabored on room air, patient reports pain is controlled at this time, no acute distress noted, room close to nurses station, educated patient on use of call light and asked to call for assistance, patient verbalized understanding, call light in reach, bed in low and locked position, bed alarm on, care endorsed to shift mgr RN.
--- NOTE | 2020-02-06 19:35 | NUR ---
ROUNDS PATIENT IN BED, WATCHING TV, NOT IN DISTRESS, VITALS STABLE. DENIES ANY PAIN AND DISCOMFORT AT THIS TIME. ASSESSMENT DONE AND DOCUEMNTED. SEE FLOWSHEET. NEEDS ATTENDED TO. SAFETY MEASURES IN PLACED. CALL LIGHT PLACED WITHIN REACH.
[2020-02-06 20:00] VITALS: BP_SYST 96
--- NOTE | 2020-02-06 21:18 | NUR ---
MEDICATION DUE MEDICATIONS GIVEN SCHEDULED, TOLERATED WELL. WILL CONTINUE TO MONITOR.
--- NOTE | 2020-02-07 00:12 | NUR ---
PATIENT RESTING: Patient resting quietly. No acute distress noted. Vital signs within normal range.
[2020-02-07 02:13] VITALS: BP_SYST 83
--- NOTE | 2020-02-07 04:09 | NUR ---
ROUNDS PATIENT ASLEEP, RESPIRATIONS EVEN AND UNLABORED, WILL CONTINUE TO MONITOR.
--- NOTE | 2020-02-07 06:25 | NUR ---
CLOSING NOTES PATIENT AWAKE, WATCHING TV, NO COMPLAINTS AT THIS TIME. ALL NEEDS ATTENDED TO. SAFETY MEASURES MAINTAINED. CALL LIGHT PLACED WITHIN REACH.
[2020-02-07 06:54] LABS: BASOPHILS % (AUTO) 0.2 % (0.0-2.0); EOSINOPHILS # (AUTO) 0.2 K/uL (0.0-0.4); HEMATOCRIT 23.3 % (36-54); LYMPHOCYTES # (AUTO) 0.7 K/uL (1.0-5.5); LYMPHOCYTES % (AUTO) 12.3 % (20.5-51.5); MEAN CORPUSCULAR HEMOGLOBIN 34 pg (27-31); MEAN CORPUSCULAR HGB CONC 34 % (32-36); MEAN CORPUSCULAR VOLUME 100 fL (79.0-98.0); MONOCYTES # (AUTO) 0.9 K/uL (0.0-1.0); MONOCYTES % (AUTO) 16.6 % (1.7-9.3); NEUTROPHILS # (AUTO) 3.9 K/uL (1.8-7.7); NEUTROPHILS % (AUTO) 67.9 % (40.0-70.0); RED BLOOD CELL COUNT(AUTO) 2.34 MIL/uL (4.2-6.2); RED CELL DISTRIBUTION WIDTH 21.8 % (9.0-15.0); WHITE BLOOD COUNT (AUTO) 5.7 K/uL (4.8-10.8)
--- NOTE | 2020-02-07 07:07 | NUR ---
Opening Note received bedside SBAR report from fast food shift lead RN, patient resting in bed, respirations even and unlabored on room air, no acute distress noted, room close to nurses station, educated patient on use of call light and asked to call for assistance, patient verbalized understanding, call light in reach, bed in low and locked position, bed alarm on.
[2020-02-07 07:22] LABS: CALCIUM 8.2 mg/dL (8.4-11.0); CREATININE 1.63 mg/dL (0.55-1.30); POTASSIUM 3.5 mmol/L (3.5-5.1)
[2020-02-07 07:55] LABS: PLATELET COUNT (AUTO) 37 K/uL (130-430)
[2020-02-07 08:00] VITALS: BP_SYST 114
--- NOTE | 2020-02-07 08:05 | NUR ---
PAGED PAGED KASI MARX AT [phone] SPOKE WITH
--- NOTE | 2020-02-07 08:50 | NUR ---
Physician Rounds Dr. Koch at bedside examining patient.
[2020-02-07] MEDS: SODIUM BICARBONATE 650 MG TABLET PO SCH ×2 (08:56→21:09)
[2020-02-07] MEDS: POTASSIUM CHLORIDE 20 MEQ/PKT PACKET PO SCH (08:56)
[2020-02-07] MEDS: MIDODRINE HCL 5 MG TABLET (PROAMATINE) PO SCH ×3 (08:56→21:09)
[2020-02-07] MEDS: THIAMINE HCL 100 MG TABLET PO SCH (08:56)
[2020-02-07] MEDS: RIFAXIMIN 550 MG TABLET PO SCH ×2 (08:56→21:09)
[2020-02-07] MEDS: ARIPiprazole 5 MG TAB PO SCH (08:56)
[2020-02-07] MEDS: FOLIC ACID 1 MG TABLET PO SCH (08:56)
--- NOTE | 2020-02-07 09:00 | NUR ---
Physician Rounds Dr. Finley at bedside examining patient.
[2020-02-07] MEDS: 0.45% NACL 1,000 ML IV SCH ×2 (09:12→18:08)
[2020-02-07] MEDS: traMADol HCL HCL 50 MG TABLET (ULTRAM) PO PRN ×2 (09:12→21:10)
--- NOTE | 2020-02-07 10:26 | NUR ---
Critical Lab spoke with Dr. Chang, informed him of critical lab platelets 37, per Dr. Chang no transfusion indicated at this time, no new orders.
--- NOTE | 2020-02-07 11:39 | NUR ---
RN Rounds patient resting in bed, respirations even and unlabored on room air, patient reports pain is controlled, no acute distress noted.
[2020-02-07 12:45] VITALS: BP_SYST 81
--- NOTE | 2020-02-07 14:04 | NUR ---
MANAGING PRINCIPAL Rounds Rounds with Diane Mujica MANAGING PRINCIPAL for Dr. Treadwell, informed her of plan for paracentesis tomorrow, no new orders.
--- NOTE | 2020-02-07 14:28 | NUR ---
Refused Wound Care Educated patient on purpose and procedure for wound care, patient verbalized understanding, patient refusing wound care, patient states "I don't think they need to be changed today", patient resting in bed, patient reports pain is controlled, no acute distress noted.
--- NOTE | 2020-02-07 14:44 | NUR ---
Nutrition F/U Admitting Diagnosis: Hyponatremia, liver failure, psychosis Medical History Comment: PMHx includes bipolar disorder, alcoholic cirrhosis, and kidney disease per physician notes. Pt was found w/: FTT, progressive anemia, hyponatremia, severe malnutrition, and deteriorating liver and kidney functions suggestive of hepatorenal syndrome per physician notes. Per MD notes, pt with severe muscle wasting on all 4 extremities. Subjective Information: Pt seen resting in bed earlier, reported tolerating diet well, no c/o abd discomfort. Per EMR review, pt is for paracentesis tomorrow w/ albumin infusion. Per EMR review, PO intake is good 100% of 3 meals recorded. Current Diet Order/Nutrition Support: Renal Standard diet x 5 days Pertinent Medications: Thiamine, Folic Acid, Albumin, Ultram Pertinent Labs (02/06) Na: 128L, BUN: 43H, Cr: 1.63H, eGFR 46L Skin Integrity Comment: Wilian Score: 17. Skin: no PIs per nursing note. Current % PO Fair (50-74%) Estimated Energy Expenditure (kcals/day) 2160-2520kcal/day (30-35kcal/kg based on CBW for chronic Dz state) Estimated Protein Required (g/day) 72-86g/day (1-1.2g/kg based on CBW for chronic Dz state) Estimated Fluid Required (l/day) 2.1L/day based on CBW for maintenance Problem/Etiology/Signs/Symptoms Malnutrition r/t failure to thrive AEB severe muscle wasting and poor appetite >1 week. (*ongoing) Expected Outcomes/Goals Monitor appetite and PO intakes w/ goal of pt meeting at least 75% of estimated nutritional needs, labs trending WNL, normal GI function, and skin integrity/wt maintenance Dietitian Recommendations *Continue Renal Standard diet. *Consider ONS BID to supplement PO intake Follow Up High Risk: F/U in 2-3days Addendum: 02/07/20 at [address] Moderate Risk F/U 3-[address]
--- NOTE | 2020-02-07 14:53 | NUR ---
Dietitian Recommendations *Continue Renal Standard diet. *Consider ONS BID to supplement PO intake Please see Nutritional Assessment for details. MANJEET, RD
--- NOTE | 2020-02-07 16:15 | NUR ---
RN Rounds patient resting in bed, respirations even and unlabored on room air, no acute distress noted, patient reports pain is controlled.
[2020-02-07 16:54] VITALS: BP_SYST 85
--- NOTE | 2020-02-07 18:29 | NUR ---
RN Rounds patient resting in bed, provided patient with warm blanket per patients request, provided patient with water, patient resting comfortably.
--- NOTE | 2020-02-07 19:01 | NUR ---
Closing Note bedside SBAR report given to receiving RN, patient resting in bed, respirations even and unlabored on room air, no acute distress noted, patient reports pain is controlled, room close to nurses station, educated patient on use of call light and asked to call for assistance, patient verbalized understanding, call light in reach, bed in low and locked position, bed alarm on, care endorsed to rn night RN.
--- NOTE | 2020-02-07 19:40 | NUR ---
ROUNDS PATIENT RESTING COMFORTABLY IN BED, VITALS STABLE, NO PAIN NOTED AT THIS TIME. ASSESSMENT DONE AND DOCUEMNTED. SEE FLOWSHEET. NEEDS ATTENDED TO. SAFETY AND FALL MEASURES IN PLACED. BED IN LOW AND LOCKED POSITION. WILL CONTINUE TO MONITOR.
--- NOTE | 2020-02-07 21:14 | NUR ---
MEDICATION DUE MEDICATIONS GIVEN SCHEDULED, TOLERATED WELL. WILL CONTINUE TO MONITOR.
[2020-02-08] VITALS (7 sets, daily range): BP systolic 87–100
--- NOTE | 2020-02-08 00:13 | NUR ---
PATIENT RESTING: Patient resting quietly. No acute distress noted. Vital signs within normal range.
--- NOTE | 2020-02-08 04:16 | NUR ---
ROUNDS PATIENT ASLEEP, RESPIRATIONS EVEN AND UNLABORED, WILL CONTINUE TO MONITOR.
[2020-02-08] MEDS: 0.45% NACL 1,000 ML IV SCH ×2 (06:37→15:47)
--- NOTE | 2020-02-08 06:55 | NUR ---
CLOSING NOTES PATIENT STILL ASLEEP, RESPIRATIONS EVEN AND UNLABORED, NO SIGNS OF ANY PAIN AND DISCOMFORT NOTED. ALL NEEDS ATTENDED TO. SAFETY MEASURES MAINTAINED. CALL LIGHT PLACED WITHIN REACH.
--- NOTE | 2020-02-08 07:17 | NUR ---
Opening Note received bedside SBAR report from shift superintendent RN, patient resting in bed, respirations even and unlabored on room air, patient reports pain is controlled, no acute distress noted, room close to nurses station, educated patient on use of call light and asked to call for assistance, patient verbalized understanding, call light in reach, bed in low and locked position, bed alarm on.
[2020-02-08] MEDS: THIAMINE HCL 100 MG TABLET PO SCH (07:53)
[2020-02-08] MEDS: POTASSIUM CHLORIDE 20 MEQ/PKT PACKET PO SCH (07:53)
[2020-02-08] MEDS: RIFAXIMIN 550 MG TABLET PO SCH ×2 (07:53→21:00)
[2020-02-08] MEDS: SODIUM BICARBONATE 650 MG TABLET PO SCH ×2 (07:53→21:00)
[2020-02-08] MEDS: FOLIC ACID 1 MG TABLET PO SCH (07:54)
[2020-02-08] MEDS: MIDODRINE HCL 5 MG TABLET (PROAMATINE) PO SCH ×3 (07:54→21:00)
[2020-02-08] MEDS: ARIPiprazole 5 MG TAB PO SCH (07:54)
--- NOTE | 2020-02-08 08:40 | NUR ---
Physician Rounds Dr. Koch at bedside examining patient, per Dr. Koch give albumin during or after paracentesis, do not give albumin before paracentesis, verified with read back.
[2020-02-08 08:56] LABS: ALBUMIN 2.8 g/dL (3.4-4.8); CALCIUM 8.1 mg/dL (8.4-11.0); CREATININE 1.58 mg/dL (0.55-1.30); POTASSIUM 4.1 mmol/L (3.5-5.1); TOTAL BILIRUBIN 11.4 mg/dL (0.0-1.0)
[2020-02-08 09:03] LABS: INR 1.5 (0.80-1.20)
[2020-02-08 09:09] LABS: BASOPHILS % (AUTO) 0.3 % (0.0-2.0); EOSINOPHILS # (AUTO) 0.1 K/uL (0.0-0.4); EOSINOPHILS % (AUTO) 1.2 % (0.0-4.0); HEMOGLOBIN 7.2 g/dL (14.0-18.0); LYMPHOCYTES # (AUTO) 0.4 K/uL (1.0-5.5); LYMPHOCYTES % (AUTO) 6.2 % (20.5-51.5); MEAN CORPUSCULAR HEMOGLOBIN 34 pg (27-31); MEAN CORPUSCULAR HGB CONC 34 % (32-36); MEAN CORPUSCULAR VOLUME 102 fL (79.0-98.0); MONOCYTES # (AUTO) 1.1 K/uL (0.0-1.0); MONOCYTES % (AUTO) 15.6 % (1.7-9.3); NEUTROPHILS # (AUTO) 5.6 K/uL (1.8-7.7); NEUTROPHILS % (AUTO) 76.7 % (40.0-70.0); RED BLOOD CELL COUNT(AUTO) 2.09 MIL/uL (4.2-6.2); WHITE BLOOD COUNT (AUTO) 7.3 K/uL (4.8-10.8)
[2020-02-08 09:15] LABS: HEMATOCRIT 21.3 % (36-54); PLATELET COUNT (AUTO) 44 K/uL (130-430)
--- NOTE | 2020-02-08 09:36 | NUR ---
PAGED PAGED KASI MARX AT [phone] SPOKE WITH
--- NOTE | 2020-02-08 09:46 | NUR ---
Physical Therapy physical therapy at bedside working with patient, patient tolerating well, patient removed rn traveling and is refusing to have rn traveling put back on, patient states "I will put it on in a little while, not right now".
--- NOTE | 2020-02-08 09:59 | NUR ---
Critical Lab rounds with Dr. Chang, informed him of critical lab platelets 44 and Hct 21.3, no new orders.
[2020-02-08] MEDS ORDERED: ALBUMIN HUMAN 25% 50 ML IV SCH (10:15)
--- NOTE | 2020-02-08 11:40 | NUR ---
Paracentesis product safety technical assistant Orly and Dr. Angelo at bedside for ultrasound guided paracentesis, Dr. Angelo starting paracentesis at this time, patient resting in bed, awake, alert, no acute distress noted. Addendum: 02/08/20 at 1517 by Lynda Fung RN prior to paracentesis patient was educated about purpose and procedure for medical receptionist biller, patient verbalized understanding, patient was agreeable to have medical receptionist biller placed back on.
--- NOTE | 2020-02-08 12:28 | NUR ---
Paracentesis paracentesis completed, 10L out, patient tolerated well, patient alert and awake, no acute distress noted, no bleeding noted from paracentesis puncture site, patient resting in bed, IV fluids infusing well to right upper arm.
--- NOTE | 2020-02-08 13:40 | NUR ---
RN Rounds patient resting in bed, respirations even and unlabored on room air, no acute distress noted, bandage to left abdomen from paracentesis puncture clean, dry, and intact, no drainage noted, patient reports pain is controlled at this time.
--- NOTE | 2020-02-08 13:50 | NUR ---
Specimen sent to lab spoke with Jazmin from lab, informed her that 10L paracentesis fluid were removed, per Jazmin only 3L of fluid need to be submitted to the lab, took 3L of paracentesis fluid to the lab, verified with Jazmin that forms were filled out correctly, per Jazmin the additional 7L of fluid can be disposed of properly, remainder of fluid placed in biohazard bag and placed in biohazard bin.
[2020-02-08] MEDS: ALBUMIN HUMAN 25% 50 ML IV SCH ×2 (15:47→20:00)
--- NOTE | 2020-02-08 16:01 | NUR ---
Wound Care educated patient on purpose and procedure for wound care, patient verbalized understanding and is agreeable for wound care, wound care completed, patient tolerated well, patient denies any pain during or after wound care, see MST shift assessment for wound care.
--- NOTE | 2020-02-08 18:14 | NUR ---
RN Rounds patient resting in bed watching TV, patient reports pain is controlled at this time, no acute distress noted, IV fluids infusing well.
[2020-02-08] MEDS: NACL 0.9% 1,000 ML IV SCH (18:32)
--- NOTE | 2020-02-08 18:53 | NUR ---
Physician Rounds Rounds with Dr. Treadwell, informed him that patient had paracentesis today and that 10L was removed, informed him that patient did physical therapy today, no new orders.
--- NOTE | 2020-02-08 19:34 | NUR ---
Closing Note bedside SBAR report given to receiving RN, patient resting in bed, respirations even and unlabored on room air, no acute distress noted, patient reports pain is controlled, left abdominal paracentesis puncture site is clean, dry, and intact, no drainage noted, room close to nurses station, educated patient on use of call light and asked to call for assistance, patient verbalized understanding, call light in reach, bed in low and locked position, bed alarm on, care endorsed to Opal AKINS.
[2020-02-08 22:20] LABS: BODY FLUID GLUCOSE 89 mg/dL
[2020-02-08 23:38] LABS: APPEARANCE,SPUN,BODY FLUID CLEAR (CLEAR); BF APPEARANCE UNSPUN CLOUDY (CLEAR); BODY FLUID COLOR RED (LT YELLOW); BODY FLUID SOURCE/ TYPE PARACENTESIS; SOURCE/TYPE ,BODY FLUID PARACENTESIS
[2020-02-08 23:40] LABS: BODY FLUID OTHER CELLS 0 %; BODY FLUID TOTAL VOLUME 10000 mL; EOSINOPHIL, BODY FLUID 1 %; LYMPHOCYTES, BODY FLUID 50 %; MONOCYTES,BODY FLUID 22 %; NEUTROPHIL, BODY FLUID 27 %; RBC, BODY FLUID 119200 /uL; WBC, BODY FLUID 1222 /uL
[2020-02-09 06:50] LABS: BASOPHILS % (AUTO) 0.3 % (0.0-2.0); EOSINOPHILS # (AUTO) 0.1 K/uL (0.0-0.4); EOSINOPHILS % (AUTO) 2.2 % (0.0-4.0); LYMPHOCYTES # (AUTO) 0.6 K/uL (1.0-5.5); LYMPHOCYTES % (AUTO) 11.7 % (20.5-51.5); MEAN CORPUSCULAR HEMOGLOBIN 35 pg (27-31); MEAN CORPUSCULAR HGB CONC 35 % (32-36); MEAN CORPUSCULAR VOLUME 102 fL (79.0-98.0); MONOCYTES # (AUTO) 0.7 K/uL (0.0-1.0); MONOCYTES % (AUTO) 14.3 % (1.7-9.3); NEUTROPHILS # (AUTO) 3.7 K/uL (1.8-7.7); NEUTROPHILS % (AUTO) 71.5 % (40.0-70.0); RED CELL DISTRIBUTION WIDTH 23.6 % (9.0-15.0); WHITE BLOOD COUNT (AUTO) 5.2 K/uL (4.8-10.8)
[2020-02-09 07:24] LABS: RED BLOOD CELL COUNT(AUTO) 1.61 MIL/uL (4.2-6.2)
[2020-02-09 07:25] LABS: HEMATOCRIT 16.3 % (36-54); HEMOGLOBIN 5.7 g/dL (14.0-18.0)
[2020-02-09 07:26] LABS: PLATELET COUNT (AUTO) 30 K/uL (130-430)
--- NOTE | 2020-02-09 07:28 | NUR ---
CRITICAL LABS RECEIVED CRITICAL LABS OF HEMOGLOBIN, HEMATOCRIT AND PLATELET. PAGED DR. TADEO.
[2020-02-09 07:32] LABS: ALBUMIN 2.8 g/dL (3.4-4.8); CALCIUM 8.4 mg/dL (8.4-11.0); CREATININE 1.47 mg/dL (0.55-1.30)
[2020-02-09 08:00] VITALS: BP_SYST 79
--- NOTE | 2020-02-09 08:00 | NUR ---
INITIAL NOTES RESTING IN BED, ORIENTED TO NAME, PLACE AND TIME. NO SHORTNESS OF BREATH ON ROOM AIR. COMPLAINED OF PAIN ON THE SACRAL AREA. IVF INFUSING WELL VIA RIGHT UPPER ARM, GAUGE 18. PICC LINE INTACT, PATENT AND WITH BLOOD RETURN. ENCOURAGED BED MOBILITY. HELPED REPOSITION IN BED. FALL AND SAFETY CHECKS DONE. CALL LIGHT WITHIN REACH. WILL CONTINUE TO MONITOR.
[2020-02-09 08:12] LABS: TOTAL BILIRUBIN 9.7 mg/dL (0.0-1.0)
[2020-02-09] MEDS: THIAMINE HCL 100 MG TABLET PO SCH (08:56)
[2020-02-09] MEDS: RIFAXIMIN 550 MG TABLET PO SCH ×2 (08:56→21:07)
[2020-02-09] MEDS: FOLIC ACID 1 MG TABLET PO SCH (08:56)
[2020-02-09] MEDS: MIDODRINE HCL 5 MG TABLET (PROAMATINE) PO SCH ×3 (08:56→21:08)
[2020-02-09] MEDS: POTASSIUM CHLORIDE 20 MEQ/PKT PACKET PO SCH (08:57)
[2020-02-09] MEDS: ARIPiprazole 5 MG TAB PO SCH (08:57)
[2020-02-09] MEDS: SODIUM BICARBONATE 650 MG TABLET PO SCH ×2 (08:57→21:08)
--- NOTE | 2020-02-09 09:15 | NUR ---
MED PASS; MD ROUNDS PATIENT TOOK HIS MEDICATIONS WELL. SEEN AND EXAMINED BY DR. HIRSCH. AWARE OF THE CRITICAL RESULTS. ENSURED SAFETY. WILL CONTINUE TO MONITOR.
--- NOTE | 2020-02-09 10:00 | NUR ---
TELEPHONE ORDER WAS ABLE TO TALK TO DR. TADEO ON THE PHONE. AWARE OF THE CRITICAL RESULTS. ORDERED TO TRANSFUSE 2 UNITS OF PACKED CELLS.
--- NOTE | 2020-02-09 12:00 | NUR ---
IV ACCESS OUT; PICC LINE DRESSING CHANGE IV ACCESS ON RIGHT UPPER ARM WAS ACCIDENTALLY PULLED BY PATIENT. PICC LINE STILL INTACT BUT SOME BLEEDING NOTED. CHANGED PICC LINE DRESSING. NO ACTIVE BLEEDING. FLUSHING WELL AND WITH BLOOD RETURN. ENSURED SAFETY AFTER. WILL MONITOR.
[2020-02-09 12:26] VITALS: BP_SYST 89
--- NOTE | 2020-02-09 14:27 | NUR ---
BLOOD TRANSFUSION BLOOD HAS BEEN TYPED AND CROSSMATCHED FROM BLOOD BANK. DOUBLE CHECKED WITH MS. JEFF RN AT BEDSIDE. ALL INFORMATION MATCHED. PATIENT EDUCATED ABOUT TRANSFUSION REACTIONS AND TO REPORT ANY SUDDEN SYMPTOM. PATIENT VERBALIZED UNDERSTANDING. PRE-TRANSFUSION VITAL SIGNS TAKEN. WILL STAY AT BEDSIDE FOR THE FIRST 15 MINUTES OF TRANSFUSION. WILL CLOSELY MONITOR PER PROTOCOL.
--- NOTE | 2020-02-09 15:20 | NUR ---
TRANSFUSION ENDED FIRST BAG OF PACKED CELLS TRANSFUSED. PATIENT IS STABLE AT THIS TIME, NO ADVERSE REACTIONS. WILL GET SECOND BAG OF PACKED CELLS FROM LAB.
[2020-02-09 15:39] VITALS: BP_SYST 78
--- NOTE | 2020-02-09 15:45 | NUR ---
2ND BLOOD TRANSFUSION DOUBLE CHECKED BLOOD WITH MS. JEFF RN AT BEDSIDE. ALL INFORMATION MATCHED. PATIENT RE-EDUCATED ABOUT TRANSFUSION REACTIONS, PATIENT VERBALIZED UNDERSTANDING. PRE-TRANSFUSION VITAL SIGNS TAKEN. WILL STAY AT BEDSIDE FOR THE FIRST 15 MINUTES OF TRANSFUSION. WILL CLOSELY MONITOR PER PROTOCOL.
--- NOTE | 2020-02-09 16:30 | NUR ---
WOUND CARE WOUND CARE DONE ON MULTIPLE SKIN TEARS ON BOTH UPPER ARMS. PATIENT TOLERATED PROCEDURE. SAFETY ENSURED. WILL MONITOR.
[2020-02-09] MEDS: NACL 0.9% 1,000 ML IV SCH (18:00)
--- NOTE | 2020-02-09 18:30 | NUR ---
CLOSING NOTES RESTING IN BED. BLOOD TRANSFUSION STILL GOING, PATIENT IS TOLERATING IT WELL. PICC LINE INTACT. ALL NEEDS MET THROUGHOUT SHIFT. SAFETY CHECKS DONE. WILL ENDORSE TO NIGHT NURSE.
--- NOTE | 2020-02-09 19:30 | NUR ---
opening note received patient awake, resting in bed, no s/sx of distress. Blood transfusion in progress and tolerating. Bed is locked in lowest position, side rails up 3x, and call light w/in reach.
[2020-02-09 20:00] VITALS: BP_SYST 89
--- NOTE | 2020-02-09 21:06 | NUR ---
blood transfusion complete transfusion complete, V/S taken, patient denies reaction.
[2020-02-09] MEDS: traMADol HCL HCL 50 MG TABLET (ULTRAM) PO PRN (21:16)
[2020-02-09 22:39] LABS: HEMOGLOBIN 8.6 g/dL (14.0-18.0)
--- NOTE | 2020-02-09 22:55 | NUR ---
Critical lab Received critical value - platelet 33, s/w Vivian Barbosa, Refinery Operator [employer]. Coag results are still pending, when results done will page Dr. Santana.
[2020-02-09 23:01] LABS: INR 1.7 (0.80-1.20); PROTHROMBIN TIME 16.9 SECS (9.5-12.5)
--- NOTE | 2020-02-09 23:17 | NUR ---
Critical lab Received critical value for Fibrinogen 100 s/w Vivian Barbosa Manager Disaster Recovery. Will page Dr. Santana.
--- NOTE | 2020-02-09 23:25 | NUR ---
Paged Dr. Chang s/w [place]
--- NOTE | 2020-02-09 23:39 | NUR ---
Dr. Chang s/w Dr. Chang and reported critical lab results and also the results for H/H, PT/INR. No orders give, he said he will log in computer-chart.
[2020-02-10] VITALS (7 sets, daily range): BP systolic 78–92
--- NOTE | 2020-02-10 01:18 | NUR ---
cryoprecipitate initiation Consent signed; agreeing to administration of blood/ blood products. Cryoprecipitate has been type and crossmatched. Cryoprecipitate received from blood bank. Information on unit of blood product checked against patient wristband at bedside by two nurses. All information matches. Patient informed of potential complications associated with blood transfusion. Informed of possible transfusion reaction symptoms. Aware of need to notify nurse at once of itching, shortness of breath, flushing, feeling of impending doom, or other symptoms not previously present. Vital signs taken within 5 minutes prior to initiation of transfusion. RN will remain with patient for first 15 minutes of transfusion at which time vital signs will be re-assessed.
--- NOTE | 2020-02-10 02:26 | NUR ---
cryoprecipitate complete Patient is awake, denies SOB, itchiness, or other symptoms. Blood pressure remains like baseline; 86/56, HR 70. Lights dim, safety precautions maintained and call light w/in reach.
--- NOTE | 2020-02-10 04:20 | NUR ---
pain med Patient reports moderate pain to left arm, 5/10 and Ultram given as ordered, v/s taken and B/P 91/60, HR 74, will continue to monitor.
[2020-02-10] MEDS: traMADol HCL HCL 50 MG TABLET (ULTRAM) PO PRN ×3 (04:23→16:59)
--- NOTE | 2020-02-10 06:50 | NUR ---
closing note Patient resting in bed, w/ eyes closed, no s/sx of distress. IVF infusing via PIIC to ALLEN. Bed is locked in lowest position, side rails up 3x, and call light w/in reach. Will endorse care
[2020-02-10 07:17] LABS: BASOPHILS % (AUTO) 0.7 % (0.0-2.0); EOSINOPHILS # (AUTO) 0.1 K/uL (0.0-0.4); EOSINOPHILS % (AUTO) 2.5 % (0.0-4.0); HEMATOCRIT 23.1 % (36-54); HEMOGLOBIN 8.1 g/dL (14.0-18.0); LYMPHOCYTES # (AUTO) 0.5 K/uL (1.0-5.5); MEAN CORPUSCULAR HEMOGLOBIN 34 pg (27-31); MEAN CORPUSCULAR HGB CONC 35 % (32-36); MEAN CORPUSCULAR VOLUME 99 fL (79.0-98.0); MONOCYTES # (AUTO) 0.6 K/uL (0.0-1.0); MONOCYTES % (AUTO) 12.3 % (1.7-9.3); NEUTROPHILS # (AUTO) 3.5 K/uL (1.8-7.7); NEUTROPHILS % (AUTO) 73.5 % (40.0-70.0); RED BLOOD CELL COUNT(AUTO) 2.35 MIL/uL (4.2-6.2); WHITE BLOOD COUNT (AUTO) 4.8 K/uL (4.8-10.8)
[2020-02-10 07:30] LABS: INR 1.5 (0.80-1.20); PROTHROMBIN TIME 15.2 SECS (9.5-12.5)
--- NOTE | 2020-02-10 07:30 | NUR ---
OPENING NOTE Patient A/Ox2, to self and place. Patient in bed, no apparent distress. Bed rails up x 3, call light within reach. Fall precautions implemented. Patient verbalizes understanding.
[2020-02-10 07:33] LABS: PLATELET COUNT (AUTO) 31 K/uL (130-430)
[2020-02-10 07:39] LABS: ALBUMIN 2.8 g/dL (3.4-4.8); CALCIUM 8.2 mg/dL (8.4-11.0); CREATININE 1.11 mg/dL (0.55-1.30); TOTAL BILIRUBIN 12.4 mg/dL (0.0-1.0)
[2020-02-10] MEDS: MIDODRINE HCL 5 MG TABLET (PROAMATINE) PO SCH ×3 (08:55→21:21)
[2020-02-10] MEDS: FOLIC ACID 1 MG TABLET PO SCH (08:55)
[2020-02-10] MEDS: THIAMINE HCL 100 MG TABLET PO SCH (08:55)
[2020-02-10] MEDS: SODIUM BICARBONATE 650 MG TABLET PO SCH ×2 (08:55→21:21)
[2020-02-10] MEDS: ARIPiprazole 5 MG TAB PO SCH (08:55)
[2020-02-10] MEDS: PHYTONADIONE 10 MG/ML AMP SUBCUT SCH (08:56)
[2020-02-10] MEDS: POTASSIUM CHLORIDE 20 MEQ/PKT PACKET PO SCH (08:57)
[2020-02-10] MEDS: RIFAXIMIN 550 MG TABLET PO SCH ×2 (08:58→21:21)
--- NOTE | 2020-02-10 10:30 | NUR ---
PAIN Patient reports 6/10 lower back pain, requesting pain medication. Ultram ordered PRN. Patient's BP 92/55, HR 74. Will continue to monitor
--- NOTE | 2020-02-10 11:00 | NUR ---
PICC LINE DRESSING CHANGE Patient's PICC line dressing observed with dried blood. Changed dressing. Patient tolerated procedure well.
--- NOTE | 2020-02-10 14:45 | NUR ---
DC Planning: Per Staci/cousin # [phone] stated she is POA#2, the pt's brother/Andi,lives in [place] # [phone] is the #1 POA. I confirmed with Andi , he asked to call him first then Staci if unable to reach him. >> Discussed dcp with dr. Treadwell, he will talk to pt and POA re prognosis and plan for snf vs hospice. The Md made aware that the pt lives alone on a second floor apartment. He used FWW while in apt. PT eval , pt can performed 5 feet with FWW with c/o dizziness and unstable. The pt is not safe for home discharge.
--- NOTE | 2020-02-10 18:36 | NUR ---
CLOSING NOTES Patient resting comfortably in bed. Patient encouraged to eat dinner but he refuses. Patient denies pain at this time. No apparent distress. Side rails up x 3.
[2020-02-10] MEDS: NACL 0.9% 1,000 ML IV SCH (21:20)
[2020-02-11 00:09] VITALS: BP_SYST 82
[2020-02-11 07:26] LABS: BASOPHILS % (AUTO) 0.4 % (0.0-2.0); CALCIUM 8.8 mg/dL (8.4-11.0); CREATININE 1.2 mg/dL (0.55-1.30); EOSINOPHILS # (AUTO) 0.1 K/uL (0.0-0.4); EOSINOPHILS % (AUTO) 1.6 % (0.0-4.0); HEMATOCRIT 22.7 % (36-54); HEMOGLOBIN 7.9 g/dL (14.0-18.0); LYMPHOCYTES # (AUTO) 0.7 K/uL (1.0-5.5); MEAN CORPUSCULAR HEMOGLOBIN 35 pg (27-31); MEAN CORPUSCULAR HGB CONC 35 % (32-36); MEAN CORPUSCULAR VOLUME 100 fL (79.0-98.0); MONOCYTES # (AUTO) 0.6 K/uL (0.0-1.0); MONOCYTES % (AUTO) 11.5 % (1.7-9.3); NEUTROPHILS # (AUTO) 4.1 K/uL (1.8-7.7); NEUTROPHILS % (AUTO) 74.5 % (40.0-70.0); POTASSIUM 4.6 mmol/L (3.5-5.1); RED BLOOD CELL COUNT(AUTO) 2.27 MIL/uL (4.2-6.2); RED CELL DISTRIBUTION WIDTH 21.1 % (9.0-15.0)
--- NOTE | 2020-02-11 07:30 | NUR ---
OPENING NOTES Patient found in [facility], sleeping. No apparent distress. Side rails up x 3. IV fluids running through PICC line. Call light within reach. Will continue to monitor
--- NOTE | 2020-02-11 08:00 | NUR ---
BREAKFAST Attempted to feed patient breakfast. Patient drank milk but refused the rest of his meal even with nursing staff present.
[2020-02-11 08:05] VITALS: BP_SYST 101
[2020-02-11 08:27] LABS: WHITE BLOOD COUNT (AUTO) 5.5 K/uL (4.8-10.8)
[2020-02-11 08:28] LABS: PLATELET COUNT (AUTO) 47 K/uL (130-430)
[2020-02-11] MEDS: POTASSIUM CHLORIDE 20 MEQ/PKT PACKET PO SCH (08:42)
[2020-02-11] MEDS: SODIUM BICARBONATE 650 MG TABLET PO SCH ×2 (08:43→21:52)
[2020-02-11] MEDS: MIDODRINE HCL 5 MG TABLET (PROAMATINE) PO SCH ×3 (08:43→21:52)
[2020-02-11] MEDS: ARIPiprazole 5 MG TAB PO SCH (08:43)
[2020-02-11] MEDS: FOLIC ACID 1 MG TABLET PO SCH (08:44)
[2020-02-11] MEDS: THIAMINE HCL 100 MG TABLET PO SCH (08:44)
[2020-02-11] MEDS: RIFAXIMIN 550 MG TABLET PO SCH ×2 (08:44→21:52)
[2020-02-11] MEDS: PHYTONADIONE 10 MG/ML AMP SUBCUT SCH (08:45)
[2020-02-11] MEDS ORDERED: FERROUS SULFATE 325 MG TABLET.DR PO ONE (09:00)
--- NOTE | 2020-02-11 10:50 | NUR ---
BINDERY MACHINE OPERATOR, DR MOSELEY WAS CALLED, RE: PT DOES CANNOT VOID/URINATE. SPOKE TO SHAKIR.
--- NOTE | 2020-02-11 10:53 | NUR ---
BLADDER SCAN RN spoke with patient who states he has not voided since yesterday. Patient states that he does not feel like he needs to go. Primary RN bladder scanned patient and found urine retention >999 ml on bladder scanner. MD Mon[place] paged with call back orders: insert indwelling jackson SHEA and record urine output
[2020-02-11 12:00] VITALS: BP_SYST 84
--- NOTE | 2020-02-11 12:30 | NUR ---
LUNCH Primary RN encouraged patient to eat lunch today. Patient did take a few bites of chicken but refused the rest of his food. Patient tolerates drinking juices and milk but still has no appetite.
[2020-02-11 16:00] VITALS: BP_SYST 91
--- NOTE | 2020-02-11 17:45 | NUR ---
CLOSING NOTE Patient resting in bed, asleep. No apparent distress. A/Ox3, to self, location and reason for visit. Patient confused on time. IVF running through PICC line, indwelling jackson in place and secure. Call light within reach. Side rails up x 3. Will continue to monitor.
--- NOTE | 2020-02-11 18:55 | NUR ---
DINNER Attempted to feed patient. Patient ate only one bite of his chicken and refused the rest of his meal. Patient did drink cranberry juice.
[2020-02-11 19:11] VITALS: BP_SYST 81
[2020-02-11 20:00] VITALS: BP_SYST 81
--- NOTE | 2020-02-11 20:10 | NUR ---
pt downgraded to med-surg status and security monitor removed.
[2020-02-11] MEDS: FERROUS SULFATE 325 MG TABLET.DR PO SCH (21:51)
[2020-02-11] MEDS: NACL 0.9% 1,000 ML IV SCH (21:51)
[2020-02-11] MEDS: traMADol HCL HCL 50 MG TABLET (ULTRAM) PO PRN (22:08)
[2020-02-12 00:32] VITALS: BP_SYST 91
--- NOTE | 2020-02-12 05:19 | NUR ---
Dr. Redding here to see pt. Report on pt condition given to
[2020-02-12 08:00] VITALS: BP_SYST 85
--- NOTE | 2020-02-12 08:00 | NUR ---
awake,alert,BP 85/49,resting in bed,IVF continue infusing,abdomen distended,O2 sat 95% on room air needs attended,side rails up,safety maintained.continue to monitor pt.
--- NOTE | 2020-02-12 09:00 | NUR ---
give am meds due,pt tends to poket meds in mouth,meds crushed and mixed with pudding. continue aspiration precaution.
[2020-02-12] MEDS: ARIPiprazole 5 MG TAB PO SCH (09:22)
[2020-02-12] MEDS: MIDODRINE HCL 5 MG TABLET (PROAMATINE) PO SCH ×3 (09:22→20:52)
[2020-02-12] MEDS: PHYTONADIONE 10 MG/ML AMP SUBCUT SCH (09:22)
[2020-02-12] MEDS: FOLIC ACID 1 MG TABLET PO SCH (09:23)
[2020-02-12] MEDS: RIFAXIMIN 550 MG TABLET PO SCH ×2 (09:23→20:52)
[2020-02-12] MEDS: SODIUM BICARBONATE 650 MG TABLET PO SCH ×2 (09:23→20:52)
[2020-02-12] MEDS: FERROUS SULFATE 325 MG TABLET.DR PO SCH ×2 (09:23→20:52)
[2020-02-12] MEDS: THIAMINE HCL 100 MG TABLET PO SCH (09:23)
[2020-02-12] MEDS: POTASSIUM CHLORIDE 20 MEQ/PKT PACKET PO SCH (09:23)
--- NOTE | 2020-02-12 11:00 | NUR ---
BP 90/51.HGB 7.4,platelet 49, called and paged for critical result.continue to monitor pt.
[2020-02-12 11:34] VITALS: BP_SYST 90
[2020-02-12 12:05] LABS: EOSINOPHILS # (AUTO) 0.1 K/uL (0.0-0.4); LYMPHOCYTES # (AUTO) 0.8 K/uL (1.0-5.5); MONOCYTES # (AUTO) 0.8 K/uL (0.0-1.0); NEUTROPHILS # (AUTO) 3.9 K/uL (1.8-7.7); RED BLOOD CELL COUNT(AUTO) 2.12 MIL/uL (4.2-6.2); WHITE BLOOD COUNT (AUTO) 5.6 K/uL (4.8-10.8)
[2020-02-12 12:20] LABS: INR 1.6 (0.80-1.20); PROTHROMBIN TIME 15.7 SECS (9.5-12.5)
[2020-02-12 12:24] LABS: CALCIUM 8.7 mg/dL (8.4-11.0); CREATININE 1.73 mg/dL (0.55-1.30); POTASSIUM 5.3 mmol/L (3.5-5.1)
[2020-02-12 12:25] LABS: BASOPHILS % (AUTO) 0.6 % (0.0-2.0); EOSINOPHILS % (AUTO) 1.2 % (0.0-4.0); HEMOGLOBIN 7.4 g/dL (14.0-18.0); LYMPHOCYTES % (AUTO) 13.8 % (20.5-51.5); MEAN CORPUSCULAR HEMOGLOBIN 35 pg (27-31); MEAN CORPUSCULAR HGB CONC 34 % (32-36); MEAN CORPUSCULAR VOLUME 102 fL (79.0-98.0); MONOCYTES % (AUTO) 14.2 % (1.7-9.3); NEUTROPHILS % (AUTO) 70.2 % (40.0-70.0)
[2020-02-12 12:28] LABS: HEMATOCRIT 21.7 % (36-54); PLATELET COUNT (AUTO) 49 K/uL (130-430)
--- NOTE | 2020-02-12 13:10 | NUR ---
PAGED PAGED KASI MARX AT [phone] SPOKE WITH EXCHANGE.
--- NOTE | 2020-02-12 14:57 | NUR ---
PHYSICAL THERAPY CO-SIGN The Physical Therapy Progress Notes documented by Case Liner have been reviewed. Reviewed/Co-Signed by: Romaine Vásquez PT Documentation Done by: LULU HERMOSILLO PTA Addendum: 02/12/20 at 1502 by Romaine Vásquez PT Amended: Links added.
--- NOTE | 2020-02-12 14:59 | NUR ---
PHYSICAL THERAPY CO-SIGN The Physical Therapy Progress Notes documented by Aircraft Loadmaster Superintendent have been reviewed. Reviewed/Co-Signed by: Romaine Vásquez PT Documentation Done by: LULU HERMOSILLO PTA Addendum: 02/12/20 at 1502 by Romaine Vásquez PT Amended: Links added.
--- NOTE | 2020-02-12 15:02 | NUR ---
Nutrition F/U Admitting Diagnosis: Hyponatremia, liver failure, psychosis Medical History Comment: PMHx includes bipolar disorder, alcoholic cirrhosis, and kidney disease per physician notes. Pt was found w/: FTT, progressive anemia, hyponatremia, severe malnutrition, and deteriorating liver and kidney functions suggestive of hepatorenal syndrome per physician notes. Per MD notes, pt with severe muscle wasting on all 4 extremities. COVID-19 pending 02/10 Subjective Information: Per EMR review, PO intake is poor 32% average of 5 meals. Pt is pending COVID-19 test result and per bed huddle discussion, pt is a/w hospice consult. Pt was seen by PT today. Current Diet Order/Nutrition Support: Renal Standard diet x 10 days Pertinent Medications: Thiamine, Folic Acid, Albumin, Ultram, Ferrous sulfate Pertinent Labs (02/11) Na: 125L, K 5.3 H, BUN: 45H, CRE: 1.73H, eGFR 43L Skin Integrity Comment: Wilian Score: 13. Skin: no PIs per nursing note. Current % PO Fair (50-74%) Estimated Energy Expenditure (kcals/day) 2160-2520kcal/day (30-35kcal/kg based on CBW for chronic Dz state) Estimated Protein Required (g/day) 72-86g/day (1-1.2g/kg based on CBW for chronic Dz state) Estimated Fluid Required (l/day) 2.1L/day based on CBW for maintenance Problem/Etiology/Signs/Symptoms Malnutrition r/t failure to thrive AEB severe muscle wasting and poor appetite >1 week. (*ongoing) Expected Outcomes/Goals Monitor appetite and PO intakes w/ goal of pt meeting at least 75% of estimated nutritional needs, labs trending WNL, normal GI function, and skin integrity/wt maintenance Dietitian Recommendations *Continue Renal Standard diet. *Consider ONS BID to supplement PO intake *Encourage pt to increase PO intake. Follow Up Moderate Risk F/U 3-5 days
--- NOTE | 2020-02-12 15:06 | NUR ---
Dietitian Recommendations *Continue Renal Standard diet. *Consider ONS BID to supplement PO intake *Encourage pt to increase PO intake. Please see Nutrition F/U note for details FPC, RD
[2020-02-12 15:45] VITALS: BP_SYST 83
--- NOTE | 2020-02-12 15:47 | NUR ---
DC Planning:Late entry: per dr. Treadwell dcp for hospice evaluation. He recommended [facility]. I notified the dcp to [facility] JOAQUINA/ MARY Oshea # [phone] x [phone], fax [phone] . May call her for assistance. Contracted ambulance: may call [employer] # [phone], no auth required.
--- NOTE | 2020-02-12 16:00 | NUR ---
BP 83/51,continue and give midodrine 10 mg po per order.IVF increased to 70cc /hr per dr order hourly rounds made,safety maintained.
--- NOTE | 2020-02-12 16:02 | NUR ---
Social Service/Hospice Spoke with Bharath HERNANDEZ who stated that Dr Treadwell ordered a hospice evaluation. Recommended [facility]. Spoke with patient at bedside. Patient was alert and oriented at the start of the conversation but had moments of confusion/loss of focus during the conversation. Patient agreed that he could not safely return home and would need SNF placement. Discussed hospice. Patient agreed that hospice seemed to be a good choice for him as he did not want his life prolonged and wanted to be kept comfortable. He understood that he has a terminal diagnosis. He does not have a choice of hospice and would go with Dr Treadwell's recommendation. Patient stated that he made arrangements, but then said that he did not have the name of a mortuary. When I asked patient when he had his last alcoholic drink, he answered, "Who knows?" Patient stated that his cousin, Deann, is the best person to call as she assists him sometimes. He said his brother could also be contacted. Phoned Andi Burr [phone], and left a voicemail message requesting a return call about discharge planning. Phoned Deann Matias, , cousin. Deann said she agreed with SNF and hospice for patient. She could not care for him and his brother lives in [place]. She said patient had voiced to her that he wanted a DNR code status. She stated that patient has no mortuary arrangements and neither patient, his brother, nor she have any money to cover it. Patient wishes to be cremated. Phoned [facility], p [phone], f [phone], after hours phone [phone], and spoke with Zeenat. Verified the fax number. Told her Dr Treadwell stated he would call. Faxed patient's information. Will continue to follow.
--- NOTE | 2020-02-12 18:00 | NUR ---
came and seen pt.updated dr of pt condition.orders received and noted.
--- NOTE | 2020-02-12 19:15 | NUR ---
OPENING NOTES BEDSIDE REPORT RECEIVED FROM DAYSHIFT NURSE. PATIENT RECEIVED LYING IN BED, RESTING, NO S/S OF ACUTE DISTRESS NOTED. BREATHING EVEN AND UNLABORED. IVF INFUSING WELL, IV SITE PATENT. NO SIGNS OF INFILTRATION OR INFECTION NOTED. DUTTA ATTACHED, SECURED, AND DRAINING BY GRAVITY. CALL LIGHT WITH PATIENT, BED ALARM ON. BED IS LOCKED AND AT LOWEST POSITION. WILL CONTINUE TO MONITOR.
[2020-02-12] MEDS: NACL 0.9% 1,000 ML IV SCH (20:52)
--- NOTE | 2020-02-12 21:00 | NUR ---
ROUNDS PATIENT IN BED SLEEPING. NO SIGNS OF DISCOMFORT NOTED. CHEST RISE AND FALL EVEN BILATERALLY. IVF INFUSING WELL. CALL LIGHT WITH PATIENT. BED ALARM ON. WILL CONTINUE TO MONITOR.
--- NOTE | 2020-02-12 23:00 | NUR ---
ROUNDS PATIENT SLEEPING COMFORTABLY. NO S/S OF ACUTE DISTRESS NOTED. BED ALARM ON. WILL CONTINUE TO MONITOR.
[2020-02-13] VITALS: BP_SYST 98
--- NOTE | 2020-02-13 01:00 | NUR ---
ROUNDS PATIENT IN BED, ASLEEP. NO SIGNS OF DISCOMFORT NOTED. CHEST RISE AND FALL EVEN BILATERALLY. BED ALARM ON. WILL CONTINUE TO MONITOR.
--- NOTE | 2020-02-13 03:00 | NUR ---
ROUNDS PATIENT IN BED SLEEPING AT THIS TIME. NO S/S OF ACUTE DISTRESS NOTED. BED ALARM ON. WILL CONTINUE TO MONITOR.
--- NOTE | 2020-02-13 05:00 | NUR ---
BEREKET CARE PATIENT CLEANED BY SIZE ROLLER OPERATOR AT THIS TIME. NO SIGNS OF DISCOMFORT NOTED. ALL NEEDS MET. BED ALARM ON. WILL CONTINUE TO MONITOR.
--- NOTE | 2020-02-13 06:45 | NUR ---
CLOSING NOTES PATIENT IN BED, ASLEEP AT THIS TIME. NO S/S OF ACUTE DISTRESS NOTED. BREATHING EVEN AND UNLABORED. IVF INFUSING WELL, IV SITE PATENT, NO SIGNS OF INFILTRATION OR INFECTION NOTED. DUTTA ATTACHED, SECURED, AND DRAINING BY GRAVITY. ALL NEEDS MET THROUGHOUT SHIFT. FALL AND SAFETY PRECAUTIONS MAINTAINED THROUGHOUT SHIFT. WILL CONTINUE TO MONITOR UNTIL PATIENT CARE IS ENDORSED TO ONCOMING DAYSHIFT NURSE.
[2020-02-13 07:36] LABS: BASOPHILS % (AUTO) 0.4 % (0.0-2.0); EOSINOPHILS # (AUTO) 0.1 K/uL (0.0-0.4); EOSINOPHILS % (AUTO) 1.3 % (0.0-4.0); HEMATOCRIT 22.3 % (36-54); HEMOGLOBIN 7.6 g/dL (14.0-18.0); LYMPHOCYTES # (AUTO) 0.8 K/uL (1.0-5.5); LYMPHOCYTES % (AUTO) 14.4 % (20.5-51.5); MEAN CORPUSCULAR HEMOGLOBIN 35 pg (27-31); MEAN CORPUSCULAR HGB CONC 34 % (32-36); MEAN CORPUSCULAR VOLUME 104 fL (79.0-98.0); MONOCYTES # (AUTO) 0.7 K/uL (0.0-1.0); MONOCYTES % (AUTO) 13.4 % (1.7-9.3); NEUTROPHILS # (AUTO) 3.7 K/uL (1.8-7.7); NEUTROPHILS % (AUTO) 70.5 % (40.0-70.0); RED BLOOD CELL COUNT(AUTO) 2.15 MIL/uL (4.2-6.2); RED CELL DISTRIBUTION WIDTH 24.1 % (9.0-15.0); WHITE BLOOD COUNT (AUTO) 5.3 K/uL (4.8-10.8)
[2020-02-13 07:57] LABS: ALBUMIN 2.8 g/dL (3.4-4.8); CREATININE 2.02 mg/dL (0.55-1.30); POTASSIUM 5.6 mmol/L (3.5-5.1)
[2020-02-13] MEDS: NACL 0.9% 1,000 ML IV SCH ×2 (08:00→20:45)
[2020-02-13 08:28] LABS: PLATELET COUNT (AUTO) 49 K/uL (130-430)
[2020-02-13] MEDS: FERROUS SULFATE 325 MG TABLET.DR PO SCH ×2 (10:27→20:45)
[2020-02-13] MEDS: THIAMINE HCL 100 MG TABLET PO SCH (10:27)
[2020-02-13] MEDS: ARIPiprazole 5 MG TAB PO SCH (10:27)
[2020-02-13] MEDS: FOLIC ACID 1 MG TABLET PO SCH (10:27)
[2020-02-13] MEDS: SODIUM BICARBONATE 650 MG TABLET PO SCH ×2 (10:27→20:45)
[2020-02-13] MEDS: MIDODRINE HCL 5 MG TABLET (PROAMATINE) PO SCH ×3 (10:28→20:45)
[2020-02-13] MEDS: RIFAXIMIN 550 MG TABLET PO SCH ×2 (10:28→20:45)
[2020-02-13 11:38] VITALS: BP_SYST 84
[2020-02-13 13:41] VITALS: BP_SYST 111
--- NOTE | 2020-02-13 14:00 | NUR ---
Metallurgical Inspector: follow up re. hospice PRODUCT SAFETY COORDINATOR received a voice mail message from Elisabeth at [facility], . She stated if pt. could received hospice in his home. PRODUCT SAFETY COORDINATOR looked in notes, ptNeo Gavin stated, pt, alise be home alone as he is limited. PRODUCT SAFETY COORDINATOR called Elisabeth, she was not in, PRODUCT SAFETY COORDINATOR left message with the exchange, asking if Elisabeth can call back. PRODUCT SAFETY COORDINATOR called Huma the [facility] rep, and left a message asking for her to call back. DULCE MARIA will follow up.
[2020-02-13] MEDS ORDERED: SODIUM BICARBONATE 8.4% JECT 50 MEQ/50 ML SYRINGE IVP ONE (14:30)
[2020-02-13] MEDS ORDERED: SODIUM POLYSTYRENE SULFONATE 15 GM/60 ML UDBTL PO ONE (14:30)
[2020-02-13 15:37] VITALS: BP_SYST 130
[2020-02-13] MEDS: traMADol HCL HCL 50 MG TABLET (ULTRAM) PO PRN (18:39)
--- NOTE | 2020-02-13 18:42 | NUR ---
Pt has poor appetite, Low BP has Midodrine on schedule. Platelets count 49 continue to be low. Patent PICC line. K 5.9 gave kayexalate. 1830 C/o generalized pain medicated with tramadol. Will continue monitoring. Will endorse to the next shift.
--- NOTE | 2020-02-13 19:15 | NUR ---
OPENING NOTES/POOR APPETITE BEDSIDE REPORT RECEIVED FROM DAYSALFT NURSE. PATIENT RECEIVED LYING IN BED, EYES CLOSED, RESTING. NO S/S OF ACUTE DISTRESS NOTED. BREATHING EVEN AND UNLABORED. PATIENT ENCOURAGED TO EAT DINNER, PATIENT REFUSES, SAYING HE IS NOT HUNGRY. WILL CONTINUE TO ENCOURAGE. IVF INFUSING WELL, IV SITE PATENT, NO SIGNS OF INFILTRATION OR INFECTION NOTED. DUTTA ATTACHED, SECURED, AND DRAINING BY GRAVITY. CALL LIGHT WITH PATIENT. BED ALARM ON. WILL CONTINUE TO MONITOR.
--- NOTE | 2020-02-13 21:00 | NUR ---
[facility] SCHEDULED MEDICATIONS GIVEN AT THIS TIME. PATIENT CLEANED BY CATTLE DIPPER AND RN. PATIENT TOLERATED WELL. ALL NEEDS MET. BED ALARM ON. WILL CONTINUE TO MONITOR.
--- NOTE | 2020-02-13 23:00 | NUR ---
ROUNDS PATIENT ASLEEP. NO SIGNS OF DISCOMFORT NOTED. CHEST RISE AND FALL EVEN BILATERALLY. BED ALARM ON. WILL CONTINUE TO MONITOR.
[2020-02-14] VITALS (7 sets, daily range): BP systolic 59–101
--- NOTE | 2020-02-14 01:00 | NUR ---
ROUNDS PATIENT SLEEPING AT THIS TIME. NO S/S OF ACUTE DISTRESS NOTED. BREATHING EVEN AND UNLABORED. IVF INFUSING WELL. BED ALARM ON. WILL CONTINUE TO MONITOR.
--- NOTE | 2020-02-14 03:00 | NUR ---
ROUNDS PATIENT ASLEEP. NO SIGNS OF DISCOMFORT. BED ALARM ON. WILL CONTINUE TO MONITOR.
--- NOTE | 2020-02-14 05:00 | NUR ---
ROUNDS PATIENT IN BED ASLEEP. NO SIGNS OF DISCOMFORT. BED ALARM ON.
--- NOTE | 2020-02-14 06:59 | NUR ---
CLOSING NOTE PATIENT IN BED SLEEPING AT THIS TIME. NO S/S OF ACUTE DISTRESS NOTED. BREATHING EVEN AND UNLABORED. IVF INFUSING WELL, IV SITE PATENT, NO SIGNS OF INFILTRATION OR INFECTION NOTED. BILATERAL SOFT WRIST RESTRAINTS IN PLACE, NO SIGNS OF INJURIES. ALL NEEDS MET. BED ALARM ON. WILL CONTINUE TO MONITOR UNTIL ENDORSED TO DAYSHIFT NURSE.
--- NOTE | 2020-02-14 07:25 | NUR ---
opening note receive bedside SBAR from night RN, patient in bed, respirations even, non labored, bed in low and locked position, call light within reach, bed alarm on
[2020-02-14] MEDS: THIAMINE HCL 100 MG TABLET PO SCH (09:00)
[2020-02-14] MEDS: RIFAXIMIN 550 MG TABLET PO SCH ×2 (09:00→21:00)
[2020-02-14 09:21] LABS: CALCIUM 9.1 mg/dL (8.4-11.0); CREATININE 2.43 mg/dL (0.55-1.30); INR 1.6 (0.80-1.20); POTASSIUM 5.1 mmol/L (3.5-5.1); PROTHROMBIN TIME 15.8 SECS (9.5-12.5)
--- NOTE | 2020-02-14 09:30 | NUR ---
nurse note patient refused medication, attempted to give patient said no and kept mouth closed, bed in low and locked position, call light within reach, bed alarm on, jackson draining by gravity.
[2020-02-14] MEDS: MIDODRINE HCL 5 MG TABLET (PROAMATINE) PO SCH ×3 (09:41→21:00)
[2020-02-14] MEDS: ARIPiprazole 5 MG TAB PO SCH (09:41)
[2020-02-14] MEDS: FERROUS SULFATE 325 MG TABLET.DR PO SCH ×2 (09:41→21:00)
[2020-02-14] MEDS: FOLIC ACID 1 MG TABLET PO SCH (09:41)
[2020-02-14] MEDS: SODIUM BICARBONATE 650 MG TABLET PO SCH ×2 (09:41→21:00)
[2020-02-14 09:51] LABS: BASOPHILS % (AUTO) 0.3 % (0.0-2.0); EOSINOPHILS # (AUTO) 0.1 K/uL (0.0-0.4); EOSINOPHILS % (AUTO) 0.8 % (0.0-4.0); HEMOGLOBIN 7.8 g/dL (14.0-18.0); LYMPHOCYTES # (AUTO) 0.8 K/uL (1.0-5.5); LYMPHOCYTES % (AUTO) 12.5 % (20.5-51.5); MEAN CORPUSCULAR HEMOGLOBIN 35 pg (27-31); MEAN CORPUSCULAR HGB CONC 34 % (32-36); MEAN CORPUSCULAR VOLUME 105 fL (79.0-98.0); MONOCYTES # (AUTO) 0.6 K/uL (0.0-1.0); MONOCYTES % (AUTO) 10.5 % (1.7-9.3); NEUTROPHILS # (AUTO) 4.6 K/uL (1.8-7.7); NEUTROPHILS % (AUTO) 75.9 % (40.0-70.0); RED BLOOD CELL COUNT(AUTO) 2.19 MIL/uL (4.2-6.2); RED CELL DISTRIBUTION WIDTH 26.2 % (9.0-15.0)
--- NOTE | 2020-02-14 10:00 | NUR ---
nurse note repositioned patient, attempted to do wound care, patient pulled arm away and said no. Educated patient regarding the need for dressing change, patient stated no. Bed in low and locked position, call light within reach, bed alarm on
[2020-02-14 10:49] LABS: PLATELET COUNT (AUTO) 47 K/uL (130-430)
--- NOTE | 2020-02-14 12:00 | NUR ---
nurse note repositioned patient, bed in low and locked position, call light within reach, bed alarm on
[2020-02-14] MEDS: NACL 0.9% 1,000 ML IV SCH (12:39)
--- NOTE | 2020-02-14 14:01 | NUR ---
nurse note repositioned patient, respirations even, non labored, bed in low and locked position, call light within reach, bed alarm on
--- NOTE | 2020-02-14 16:00 | NUR ---
nurse note patient incontinent of bowel, cleansed mona area, applied moisture barrier cream, changed linens and gown, repositioned patient. patient tolerated well, no signs of distress, patient denies any pain. Bed in low and locked position, call light within reach. jackson draining by gravity, bed alarm on
--- NOTE | 2020-02-14 16:47 | NUR ---
NURSE NOTE ATTEMPTED TO DO WOUND CARE, PATIENT STATED NO AND PULLED ARM AWAY FROM ME. EDUCATED PATIENT REGARDING THE NEED FOR WOUND CARE, PATIENT STATED NO. ATTEMPTED TO HAVE PATIENT SIGN CONSENT FOR PARACENTISIS, PATIENT STATED HE WOULD SIGN LATER
--- NOTE | 2020-02-14 18:00 | NUR ---
nurse note patient incontinent of bowel, provided mona care, applied moisture barrier cream, changed linens, and gown, repositioned patient, patient vomited, 150ml of blood, cleansed patient , informed Jasmyne, advised to call Dr. Treadwell
--- NOTE | 2020-02-14 18:20 | NUR ---
nurse note Informed Dr. Treadwell, that patient vomited 150ml of blood, thin consistency, new orders received
[2020-02-14] MEDS ORDERED: PANTOPRAZOLE SODIUM 40 MG/VIAL (PROTONIX) IVP ONE (18:30)
--- NOTE | 2020-02-14 18:40 | NUR ---
nurse note paged Dr. Koch, per exchange Dr. Maradiaga loss control consultant
--- NOTE | 2020-02-14 18:45 | NUR ---
nurse note Informed Dr. Maradiaga of patients status, new orders received, transfer patient to ICU
--- NOTE | 2020-02-14 18:50 | NUR ---
nurse note informed charge manager that Dr. Maradiaga wanted patient transferred to ICU, per Jasmyne, no rooms in ICU, told to page Dr. Maradiaga, and not input orders, she would talk with Dr. Maradiaga
--- NOTE | 2020-02-14 18:55 | NUR ---
nurse note paged Dr. Maradiaga, to speak with Jasmyne
[2020-02-14 19:26] LABS: BASOPHILS % (AUTO) 0.4 % (0.0-2.0); EOSINOPHILS % (AUTO) 0.3 % (0.0-4.0); HEMOGLOBIN 7.1 g/dL (14.0-18.0); LYMPHOCYTES # (AUTO) 0.4 K/uL (1.0-5.5); LYMPHOCYTES % (AUTO) 7.5 % (20.5-51.5); MEAN CORPUSCULAR HEMOGLOBIN 36 pg (27-31); MEAN CORPUSCULAR HGB CONC 34 % (32-36); MEAN CORPUSCULAR VOLUME 108 fL (79.0-98.0); MONOCYTES # (AUTO) 0.4 K/uL (0.0-1.0); MONOCYTES % (AUTO) 7.5 % (1.7-9.3); NEUTROPHILS # (AUTO) 4.7 K/uL (1.8-7.7); NEUTROPHILS % (AUTO) 84.3 % (40.0-70.0); WHITE BLOOD COUNT (AUTO) 5.6 K/uL (4.8-10.8)
--- NOTE | 2020-02-14 19:35 | NUR ---
closing note Provided Sbar to night RN, patient in bed, respirations labored, bed in low and locked position, call light within reach, bed alarm on, jackson draining by gravity, endorsed care to night RN
[2020-02-14 19:36] LABS: INR 1.7 (0.80-1.20); PROTHROMBIN TIME 16.8 SECS (9.5-12.5)
[2020-02-14 19:37] LABS: RED BLOOD CELL COUNT(AUTO) 1.96 MIL/uL (4.2-6.2)
[2020-02-14 19:41] LABS: HEMATOCRIT 21.2 % (36-54)
[2020-02-14 19:42] LABS: PLATELET COUNT (AUTO) 49 K/uL (130-430)
[2020-02-14 19:44] LABS: CALCIUM 9.3 mg/dL (8.4-11.0); CREATININE 2.82 mg/dL (0.55-1.30)
[2020-02-14 19:45] LABS: ALBUMIN 2.8 g/dL (3.4-4.8)
[2020-02-14] MEDS ORDERED: PANTOPRAZOLE SODIUM 40 MG in NS 50 ML IV SCH (19:45)
[2020-02-14 19:46] LABS: TOTAL BILIRUBIN 13.1 mg/dL (0.0-1.0)
--- NOTE | 2020-02-14 19:50 | NUR ---
MD CALLED : PRIMARY RN IS BUSY , CALLED AND TALKED WITH DR CALDERON , INFORMED HIM THAT PTS H/H IS 7.1 AND 21.2 AND PLATELET IS 49 , AND BP IS 96/58 AT THIS TIME . MD ORDERED TO TRANSFER PT TO ICU , INFORMED MD THAT ICU IS FULL NO BED AVAILABLE , MD ORDERED TO KEEP PT ON ICU STATUS , MD ORDERED 2 UNITS OF PRBC TYPE AND SCREEN AND TRANSFUSE , ALSO MD ORDERED ALBUMIN 25% 200 ML X1 ; PRIMARY RN NOTIFIED OF ALL NEW ORDERS , CHARGE NURSE MADE AWARE OF IT TOO .
[2020-02-14] MEDS ORDERED: ALBUMIN HUMAN 25% 200 ML IV ONE (20:00)
--- NOTE | 2020-02-14 20:24 | NUR ---
CODE BLUE CALLED , PATIENT NOT RESPONSIVE PULSE ABSENT , CHEST COMPRESSIONS STARTED , ER TEAM @ THE BEDSIDE .
[2020-02-14] MEDS ORDERED: PANTOPRAZOLE SODIUM 40 MG/VIAL (PROTONIX) ONE (20:25)
--- NOTE | 2020-02-14 20:31 | NUR ---
PHONED FAMILY MACKENZIE HUMPHREY FOR UPDATE TO PATIENT CONDITION ,
[2020-02-14] MEDS ORDERED: OCTREOTIDE ACETATE 1,250 MCG in NS 243.75 ML IV SCH (20:45)
--- NOTE | 2020-02-14 21:00 | NUR ---
PHONED SPOKE WITH DR KVNG GIL UPDATED MD TO ABNORMAL LABS H & H , ORDERS TO D/C PRBC D/T PATIENT DNR STATUS .
[2020-02-14 21:19] LABS: HEMATOCRIT 21.5 % (36-54); HEMOGLOBIN 6.9 g/dL (14.0-18.0)
[2020-02-14] MEDS ORDERED: NOREPINEPHRINE BITARTRATE 4 MG in D5W 246 ML IV PRN (22:30)
[2020-02-14] MEDS ORDERED: MORPHINE 2 MG/ML INJ. SYRINGE IVP PRN (22:30)
--- NOTE | 2020-02-14 22:45 | NUR ---
PHONED FAMILY , MACKENZIE HUMPHREY [phone] FAMILY DOES NOT WANT PATIENT TO HAVE LEVOPHED DRIP FOR LOW BP , FAMILY DOES NOT WANT PATIENT TO HAVE ANY MEDICATIONS , COMFORT MEASURES ONLY PATIENT IS FULL DNR PER FAMILY DR KVNG GIL UPDATED & AWARE .
[2020-02-14] MEDS ORDERED: NOREPINEPHRINE 4 MG/4 ML VIAL IV ONE (22:53)
--- NOTE | 2020-02-14 23:34 | NUR ---
PHONED & SPOKE WITH DR KVNG GIL UPDATED TO FAMILY WISHES , MACKENZIE HUMPHREY , DR CALDERON ORDERS TO STOP ALL MEDICATIONS , COMFORT MEASURES ONLY , DNR .
[2020-02-15] VITALS: BP_SYST 50
[2020-02-15 01:00] VITALS: BP_SYST 46
[2020-02-15 02:00] VITALS: BP_SYST 34
--- NOTE | 2020-02-15 02:15 | NUR ---
SPOKE WITH FAMILY MACKENZIE HUMPHREY , FAMILY WANTS COMFORT MEASURES ONLY , DR KVNG GIL IS AWARE .
--- NOTE | 2020-02-15 03:32 | NUR ---
COMFORT MEASURES IMPLEMENTED LININ CHANGE , KEPT CLEAN & DRY HOB ELEVATED ON VENTILATOR SUCTION NEEDED TOLERATED / .
--- NOTE | 2020-02-15 04:45 | NUR ---
DR FRANKLIN @ THE BEDSIDE PRONOUNCE PATIENT .
--- NOTE | 2020-02-15 05:03 | NUR ---
NOTIFIED FOLLOWING DOCTORS NOTIFIED FOLLOWING DOCTORS OF PT . LORELEI WANG JACOB, LATIF, SAMANT Addendum: 02/15/20 at 0600 by Demetra Tolliver CNA ALSO DOCTOR CALDERON
--- NOTE | 2020-02-15 05:34 | NUR ---
PHONED [facility] CASE # [id number] , SPOKE WITH MIRIAM MORRIS .
--- NOTE | 2020-02-15 05:40 | NUR ---
PHONED FAMILY MACKENZIE HUMPHREY AND UPDATED THAT PATIENT HAS PER DR NOEMI GIL , FAMILY STATED WILL CALL IN FEW HOURS REGARDING MORTUARY FACILITY .
--- NOTE | 2020-02-15 15:07 | NUR ---
SS NOTES: LEADERSHIP PROGRAM INTERN phoned family and left a message for Deann Matias to see if SS can provide any resources or if they have mortuary information. Left SS phone number.
--- NOTE | 2020-02-16 15:47 | NUR ---
SS Note Patient's niece, Deann Matias [phone], left a voicemail. Phoned her back and she stated that [facility] had harvested patient's body and wanted her to make arrangements for a mortuary to pick pulling machine tender patient's body. She nor patient's brother can afford cremation and want the [facility] to take patient's body. Told her to work with [facility] and see what can be done. Stated again that a couple agencies will make arrangements for about $700, but that is the best ayala of which I'm aware.
== END 2020-02-15 04:45 | disposition expired | DRG 279 ==
LOC: SED 12:47 → STU 14:53 → SMU 02-11 20:42 → STU 02-14 19:25
PROVIDERS: ADMIT Internal Medicine; ATTEND Internal Medicine
PROC: 30233K1 Transfusion of Nonautologous Frozen Plasma into Peripheral Vein, Percutaneous Approach (ICD-10-PCS; principal; 2020-02-03)
PROC: 30233N1 Transfusion of Nonautologous Red Blood Cells into Peripheral Vein, Percutaneous Approach (ICD-10-PCS; 2020-02-04)
PROC: 02HV33Z Insertion of Infusion Device into Superior Vena Cava, Percutaneous Approach (ICD-10-PCS; 2020-02-04)
PROC: B548ZZA Ultrasonography of Superior Vena Cava, Guidance (ICD-10-PCS; 2020-02-04)
PROC: 30233M1 Transfusion of Nonautologous Plasma Cryoprecipitate into Peripheral Vein, Percutaneous Approach (ICD-10-PCS; 2020-02-05)
PROC: 0W9G3ZZ Drainage of Peritoneal Cavity, Percutaneous Approach (ICD-10-PCS; 2020-02-08)
PROC: 0BH17EZ Insertion of Endotracheal Airway into Trachea, Via Natural or Artificial Opening (ICD-10-PCS; 2020-02-14)
PROC: 5A1935Z Respiratory Ventilation, Less than 24 Consecutive Hours (ICD-10-PCS; 2020-02-14)
DX: K72.90 Hepatic failure, unspecified without coma (principal); K70.31 Alcoholic cirrhosis of liver with ascites; D69.59 Other secondary thrombocytopenia; F31.9 Bipolar disorder, unspecified; N18.9 Chronic kidney disease, unspecified; N17.0 Acute kidney failure with tubular necrosis; E87.1 Hypo-osmolality and hyponatremia; E43 Unspecified severe protein-calorie malnutrition; K76.7 Hepatorenal syndrome; D63.8 Anemia in other chronic diseases classified elsewhere; D68.4 Acquired coagulation factor deficiency; E87.2 Acidosis; E87.6 Hypokalemia; F14.10 Cocaine abuse, uncomplicated; G47.00 Insomnia, unspecified; K76.6 Portal hypertension; R31.29 Other microscopic hematuria; R58 Hemorrhage, not elsewhere classified; R62.7 Adult failure to thrive; Z60.2 Problems related to living alone; D75.9 Disease of blood and blood-forming organs, unspecified; Z87.891 Personal history of nicotine dependence; Z68.20 Body mass index [BMI] 20.0-20.9, adult; Z03.818 Encounter for observation for suspected exposure to other biological agents ruled out
CPT/HCPCS: 36415; 36600; 49083; 71045; 76700-TC; 80048; 80053; 81000-TC; 82042; 82043; 82140-TC; 82550-TC; 82553-TC; 82570; 82570-TC; 82728; 82803-TC; 82947-TC; 82962; 83051; 83540-TC; 83550-TC; 83735-TC; 83880; 83930-TC; 83935-TC; 84100-TC; 84157-TC; 84302-TC; 84484; 84550-TC; 85014-TC; 85018-TC; 85025; 85049-TC; 85384-TC; 85610-TC; 85730-TC; 86886; 86900; 86901; 86920; 87070-TC; 87081; 88108; 88305; 89051-TC; 89060-TC; 93005; 96360; 97110-GP; 97116-GP; 97530-GP; 99285; C1729; C9113; G0378; J2354; J3430; J3480; J7030; J7040; J7050; J7060; P9012; P9021; P9046; P9059; U0003-CS